=== PATIENT | female | born 1965 | race Caucasian/White ===

== ENCOUNTER 2017-06-17 11:13 | Day surgery (SDC) | payer OTHER ==
[~2017-06-17] VITALS: Ht 163.8 cm; Wt 78.0 kg
[~2017-06-17 11:13] MED LIST: ADDE5CAP PO; CYCL10TA PO; OMEP20CA3 PO
[2017-06-17] MEDS ORDERED: PROPOFOL 200 MG/20 ML VIAL As Ordered ONE (11:24)
[2017-06-17] MEDS ORDERED: LIDOCAINE 2% INJ 100 MG/5 ML SDV (FOR ANES.) As Ordered ONE (11:24)
[2017-06-17] MEDS: NS 1,000 ML IV ONE (11:30)
--- NOTE | 2017-06-17 12:55 | ROOR ---
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 Procedure: Pre-Anesthesia Assessment: - The heart rate, respiratory rate, oxygen saturations, blood pressure, adequacy of pulmonary ventilation, and response to care were monitored throughout the procedure. The Colonoscope was introduced through the anus and advanced to the cecum, identified by appendiceal orifice and ileocecal valve. The colonoscopy was performed without difficulty. The patient tolerated the procedure well. The quality of the bowel preparation was good. Findings: The perianal and digital rectal examinations were normal. Four semi-sessile polyps were found in the descending colon. The polyps were 3 to 5 mm in size. These polyps were removed with a cold snare. Resection and retrieval were complete. The exam was otherwise without abnormality on direct and retroflexion views. (Exam: Complete, Prep: Good or Excellent.) Impression: - (Exam: Complete, Prep: Good or Excellent.) - Four 3 to 5 mm polyps in the descending colon, removed with a cold snare. Resected and retrieved. - The colon examination was otherwise normal on direct and retroflexion views. Recommendation: - Repeat colonoscopy in 3 years for surveillance. Nash Frey MD Nash FREY MD 06/17/2017 12:54:55 PM This report has been signed electronically. Number of Addenda: 0 Note Initiated On: 06/17/2017 12:30 PM Estimated Blood Loss: Estimated blood loss: none.
[2017-06-17 13:14] VITALS: BP 144/66
== END 2017-06-17 13:15 | disposition home or self-care (01) ==
LOC: M OPP 11:13
PROVIDERS: ATTEND Internal Medicine Gastroenterology
DX: Z12.11 Encounter for screening for malignant neoplasm of colon (principal); Z86.010 Personal history of colon polyps; Z85.038 Personal history of other malignant neoplasm of large intestine; D12.4 Benign neoplasm of descending colon; R01.1 Cardiac murmur, unspecified; I20.9 Angina pectoris, unspecified; R12 Heartburn; K21.9 Gastro-esophageal reflux disease without esophagitis; Z86.718 Personal history of other venous thrombosis and embolism; R06.02 Shortness of breath; F41.9 Anxiety disorder, unspecified; F32.9 Major depressive disorder, single episode, unspecified; Z78.0 Asymptomatic menopausal state; R06.2 Wheezing; J44.9 Chronic obstructive pulmonary disease, unspecified; G47.8 Other sleep disorders; R06.83 Snoring; F17.210 Nicotine dependence, cigarettes, uncomplicated; F12.20 Cannabis dependence, uncomplicated; Z79.899 Other long term (current) drug therapy; Z80.0 Family history of malignant neoplasm of digestive organs

== ENCOUNTER → 2018-05-22 | Outpatient (REF) | payer OTHER, MEDICAID ==
[2018-05-22 17:18] LABS: BASO # 0.1 10^3/uL (0.0-0.2); EOS # 0.3 10^3/uL (0.0-0.50); EOS % 2.4 % (0.0-3.0); IMMATURE GRANULOCYTE % 0.4 % (0-3.0); LYMPH # 3.7 10^3/uL (1.5-4.5); LYMPH % 34.7 % (24.0-44.0); MEAN CORPUSCULAR HEMOGLOBIN 33.2 pg (27.0-33.0); MEAN CORPUSCULAR HGB CONC 32.6 g/dl (32.0-36.5); MEAN CORPUSCULAR VOLUME 101.9 fl (80.0-96.0); MONO # 0.5 10^3/uL (0.0-0.8); MONO % 5.1 % (0.0-5.0); NEUTROPHILS % 56.4 % (36.0-66.0); PLATELET COUNT, AUTOMATED 442 10^3/uL (150-450); RED BLOOD COUNT 4.22 10^6/uL (4.00-5.40); RED CELL DISTRIBUTION WIDTH 13.4 % (11.5-14.5); WHITE BLOOD COUNT 10.7 10^3/uL (4.0-10.0)
[2018-05-22 17:19] LABS: ALBUMIN 3.9 GM/DL (3.2-5.2); ALBUMIN/GLOBULIN RATIO 1.39 (1.00-1.93); ALKALINE PHOSPHATASE 76 U/L (45-117); ALT/SGPT 27 U/L (12-78); ANION GAP 8 MEQ/L (8-16); AST/SGOT 14 U/L (7-37); BILIRUBIN,TOTAL 0.3 MG/DL (0.2-1.0); BLOOD UREA NITROGEN 11 MG/DL (7-18); C REACTIVE PROTEIN QUANTITATIV < 0.30 MG/DL (0.00-0.30); CALCIUM LEVEL 8.7 MG/DL (8.5-10.1); CARBON DIOXIDE LEVEL 27 MEQ/L (21-32); CHLORIDE LEVEL 107 MEQ/L (98-107); CREATININE FOR GFR 0.77 MG/DL (0.55-1.30); GLOMERULAR FILTRATION RATE > 60.0 (>51); GLUCOSE, FASTING 84 MG/DL (70-100); POTASSIUM SERUM 4.2 MEQ/L (3.5-5.1); RHEUMATOID FACTOR QUANT < 10.0 IU/ML (<15.0); SODIUM LEVEL 142 MEQ/L (136-145); TOTAL 25(OH) VITAMIN D 26.9 NG/ML (30.0-100.0); TOTAL PROTEIN 6.7 GM/DL (6.4-8.2)
[2018-05-22 18:23] LABS: ERYTHROCYTE SEDIMENTATION RATE 6 mm/hr (0-30)
[2018-05-25 17:40] LABS: CYCLIC CITRULLINATED PEPTIDE 6 units (0-19)
[2018-05-25 17:40] LABS: ANTINUCLEAR ANTIBODIES DIRECT Negative (Negative); Lyme Disease IgG/IgM Antibodie <0.91 ISR (0.00-0.90); Lyme Disease IgM Ab Quantitati <0.80 index (0.00-0.79)
== END ==
LOC: M SFHCCAPE 10:18
DX: M25.50 Pain in unspecified joint (principal); R20.2 Paresthesia of skin; F90.0 Attention-deficit hyperactivity disorder, predominantly inattentive type

== ENCOUNTER → 2018-05-30 | Outpatient (CLI) | payer OTHER | LOC: M RAD 10:13 | DX: Z12.2 Encounter for screening for malignant neoplasm of respiratory organs (principal); F17.210 Nicotine dependence, cigarettes, uncomplicated; R91.8 Other nonspecific abnormal finding of lung field | CPT/HCPCS: G0297 ==

== ENCOUNTER → 2018-06-08 | Outpatient (CLI) | payer OTHER | LOC: M RAD 12:35 | DX: D17.0 Benign lipomatous neoplasm of skin and subcutaneous tissue of head, face and neck (principal) | CPT/HCPCS: 76536 ==

== ENCOUNTER → 2018-06-13 | Outpatient (REF) | payer OTHER, MEDICAID ==
[2018-06-13 17:26] LABS: FREE T4 0.69 NG/DL (0.76-1.46)
[2018-06-13 17:43] LABS: BASO # 0.1 10^3/uL (0.0-0.2); BASO % 0.9 % (0.0-1.0); EOS # 0.3 10^3/uL (0.0-0.50); EOS % 3.9 % (0.0-3.0); HEMATOCRIT 42.2 % (36.0-47.0); HEMOGLOBIN 13.9 g/dl (12.0-15.5); IMMATURE GRANULOCYTE % 0.3 % (0-3.0); LYMPH # 3.4 10^3/uL (1.5-4.5); LYMPH % 38.6 % (24.0-44.0); MEAN CORPUSCULAR HEMOGLOBIN 33.3 pg (27.0-33.0); MEAN CORPUSCULAR HGB CONC 32.9 g/dl (32.0-36.5); MEAN CORPUSCULAR VOLUME 101.2 fl (80.0-96.0); MONO # 0.4 10^3/uL (0.0-0.8); MONO % 4.2 % (0.0-5.0); NEUTROPHILS # 4.6 10^3/uL (1.8-7.7); NEUTROPHILS % 52.1 % (36.0-66.0); PLATELET COUNT, AUTOMATED 351 10^3/uL (150-450); RED BLOOD COUNT 4.17 10^6/uL (4.00-5.40); RED CELL DISTRIBUTION WIDTH 13.5 % (11.5-14.5); WHITE BLOOD COUNT 8.8 10^3/uL (4.0-10.0)
== END ==
LOC: M SFHCCAPE 11:33
DX: R79.89 Other specified abnormal findings of blood chemistry (principal)

== ENCOUNTER → 2018-07-06 | Outpatient (CLI) | payer OTHER, MEDICAID | LOC: M RAD 11:38 | DX: M50.30 Other cervical disc degeneration, unspecified cervical region (principal) | CPT/HCPCS: 72050 ==

== ENCOUNTER → 2018-08-09 | Outpatient (REF) | payer MEDICAID, OTHER ==
[2018-08-10 16:54] LABS: FREE T4 0.96 NG/DL (0.76-1.46); THYROID STIMULATING HORMONE 12.3 uIU/ML (0.358-3.740)
== END ==
LOC: M SFHCCAPE 15:48
PROVIDERS: ATTEND Physician Assistant
DX: E03.9 Hypothyroidism, unspecified (principal)

== ENCOUNTER → 2018-08-23 | Outpatient (CLI) | payer OTHER ==
--- NOTE | 2018-08-24 07:43 | REP ---
Clinical: Abnormal lung field findings. Comparison: 05/30/2018. Technique: Axial noncontrast images from the thoracic inlet to the upper abdomen with coronal and sagittal re-formations. Findings: A vague area of non solid opacity in the left apex remains unchanged. Remainder of lung weinstein are well-aerated and clear. Incidental 1.2 cm bleb is identified in the left lower lobe which remains unchanged. No acute consolidation, significant nodule, or mass lesion. No effusion or pneumothorax. Tracheobronchial tree is patent. No significant adenopathy. Mediastinum is grossly unremarkable. No cardiomegaly or pericardial effusion. Thoracic aorta without aneurysm. Small hiatal hernia identified at the gastroesophageal junction. Upper abdomen demonstrates normal bilateral adrenal glands. Impression: 1. The vague non solid opacity in the left apex remains unchanged. 2. Small hiatal hernia. 3. No acute mediastinal or pleuroparenchymal process appreciated. Electronically Signed by Jose E Monique MD 08/24/2018 07:35 A
== END ==
LOC: M RAD 10:05
PROVIDERS: ATTEND Internal Medicine Pulmonary Disease
DX: R91.8 Other nonspecific abnormal finding of lung field (principal); K44.9 Diaphragmatic hernia without obstruction or gangrene

== ENCOUNTER → 2018-09-08 | Outpatient (CLI) | payer OTHER ==
--- NOTE | 2018-09-08 12:25 | REP ---
MR CERVICAL SPINE WITHOUT CONTRAST: HISTORY: Cervicalgia. A disc bulge and small central disc protrusion are present at the C3-4 level. There is minimal effacement of the thecal sac without spinal cord compression. Uncinate process and facet hypertrophy are present on the right. These findings produce moderate narrowing of the right C3 neural foramen. The left C3 neural foramen is patent. A disc bulge with associated osteophyte formation is present at the C4-5 level. There is moderate effacement of the thecal sac without spinal cord compression. Bilateral uncinate process hypertrophy is present. This produces moderate and mild narrowing of the right and left C4 neural foramina respectively. A disc bulge with associated osteophyte formation is present at the C5-6 level. There is moderate effacement of the thecal sac without spinal cord compression. Bilateral uncinate process hypertrophy is present. This produces moderate narrowing of the C5 neural foramina. A disc bulge with associated osteophyte formation is present at the C6-7 level. There is mild effacement of the thecal sac without spinal cord compression. Bilateral uncinate process hypertrophy is present. This produces moderate narrowing of the C6 neural foramina. A disc bulge is present at the C7-T1 level. There is minimal effacement of the thecal sac without spinal cord compression. The C7 neural foramina are patent. A small central disc protrusion is present at the T2-3 level. There is minimal effacement of the thecal sac without spinal cord compression. The T2 neural foramina are patent on sagittal images. There is no other disc bulge or herniation. The remaining neural foramina are patent. The spinal cord is normal in signal intensity. The C4-5 through C6-7 intervertebral discs are decreased in height consistent with disc degeneration. Normal signal intensity is present in the cervical vertebral bodies. IMPRESSION: There is cervical spondylosis at the C3-4 through C7-T1 levels without spinal cord compression. Electronically Signed by Darius Singh MD 09/08/2018 12:28 P
== END ==
LOC: M RAD 09:41
PROVIDERS: ATTEND Physician Assistant
DX: M79.601 Pain in right arm (principal); M79.602 Pain in left arm; M50.21 Other cervical disc displacement, high cervical region; M50.221 Other cervical disc displacement at C4-C5 level; M50.222 Other cervical disc displacement at C5-C6 level; M50.223 Other cervical disc displacement at C6-C7 level; M50.23 Other cervical disc displacement, cervicothoracic region; M47.892 Other spondylosis, cervical region; M51.24 Other intervertebral disc displacement, thoracic region

== ENCOUNTER → 2018-10-12 | Outpatient (REF) | payer MEDICAID, OTHER ==
[2018-10-12 17:29] LABS: FREE T4 1.23 NG/DL (0.76-1.46); THYROID STIMULATING HORMONE 1.74 uIU/ML (0.358-3.740)
== END ==
LOC: M SFHCCAPE 11:22
PROVIDERS: ATTEND Physician Assistant
DX: E03.9 Hypothyroidism, unspecified (principal)

== ENCOUNTER → 2019-05-08 | Outpatient (REF) | payer MEDICAID, OTHER ==
[~2019-05-08] MED LIST changes: +OMEP1CAP73 PO; -OMEP20CA3 PO
[2019-05-11 06:07] LABS: RUBELLA IgG QUALITATIVE IMMUNE (IMMUNE)
[2019-05-12 08:06] LABS: MUMPS VIRUS IgG ANTIBODY <9.0 AU/mL (Immune >10.9)
== END ==
LOC: M SFHCCAPE 07:27
PROVIDERS: ATTEND Physician Assistant
DX: Z01.84 Encounter for antibody response examination (principal)

== ENCOUNTER → 2019-05-17 | Outpatient (REF) | payer MEDICAID, OTHER ==
[~2019-05-17] MED LIST changes: -OMEP1CAP73 PO; +OMEP20CA4 PO
[2019-05-17 18:13] LABS: CHLAMYDIA DNA AMPLIFICATION NEGATIVE (NEGATIVE); GC DNA AMPLIFICATION NEGATIVE (NEGATIVE)
== END ==
LOC: M SFHCCAPE 10:09
PROVIDERS: ATTEND Physician Assistant
DX: N76.6 Ulceration of vulva (principal); N89.8 Other specified noninflammatory disorders of vagina

== ENCOUNTER → 2021-01-14 | Outpatient (CLI) | payer OTHER ==
[~2021-01-14] MED LIST changes: +CYCL-707 PO; -CYCL10TA PO; +OMEP1CAP73 PO; -OMEP20CA4 PO
--- NOTE | 2021-01-14 15:52 | REP ---
INDICATION: ABN CT LUNG SCREENING COMPARISON: Multiple the latest 08/23/2018 TECHNIQUE: Standard helical technique without intravenous contrast administration FINDINGS: The mediastinum and pulmonary chris are unchanged. No mass or adenopathy has developed. There are no pleural or pericardial effusions. The imaged upper abdomen shows a left-sided nephrolith which was not imaged on the prior exam. The imaged upper abdomen is otherwise unchanged. There is no significant change in appearance of the imaged osseous structures. Evaluation of the lung weinstein shows and left apical ground-glass opacity which today measures approximately 2.5 cm and is potentially developing a more solid central component. No new abnormal nodules, masses, or opacities have developed. IMPRESSION: There is a ground-glass nodule in the left lung apical region as described above and is potentially subtly developing more solid central component. Consider follow-up with PET-CT at this time. <Electronically signed by Florentino Ruiz > 01/14/21 [id number]
== END ==
LOC: M RAD 11:14
PROVIDERS: ATTEND Physician Assistant
DX: R91.8 Other nonspecific abnormal finding of lung field (principal)

== ENCOUNTER 2021-02-08 12:42 | Emergency (ER) | payer OTHER ==
[~2021-02-08] VITALS: Ht 165.1 cm; Wt 68.2 kg
[2021-02-08] MEDS ORDERED: LEVO125T4 (12:53)
[2021-02-08] MEDS ORDERED: MELO15TA28 (12:53)
--- NOTE | 2021-02-08 13:22 | REP ---
INDICATION: fall COMPARISON: None. TECHNIQUE: AP, lateral, bilateral oblique views. FINDINGS: Prior by malleolar fixation. Posttraumatic degenerative changes noted. No acute fracture or dislocation identified. Ankle mortise intact. Lateral swelling. IMPRESSION: Lateral swelling. No acute fracture or dislocation appreciated. <Electronically signed by Jose E Monique > 02/08/21 [id number]
--- NOTE | 2021-02-08 13:24 | REP ---
INDICATION: fall COMPARISON: None. TECHNIQUE: AP, lateral, bilateral oblique views right foot. FINDINGS: All fractures of the medial and lateral malleolus. No obvious acute fracture or dislocation identified. IMPRESSION: No obvious acute fracture or dislocation appreciated.. <Electronically signed by Jose E Monique > 02/08/21 [id number]
--- NOTE | 2021-02-08 13:25 | REP ---
INDICATION: fall COMPARISON: None. TECHNIQUE: AP and lateral right tibia/fibula. FINDINGS: Prior fixation for medial and lateral malleolar fractures. No acute fracture or dislocation is appreciated. No subcutaneous emphysema or foreign body. IMPRESSION: . No acute fracture or dislocation. <Electronically signed by Jose E Monique > 02/08/21 [id number]
[2021-02-08] MEDS ORDERED: KETOROLAC 60MG 2ML VIAL IM ONE (14:05)
[2021-02-08 15:11] VITALS: BP 125/72
== END 2021-02-08 15:10 | disposition home or self-care (01) ==
LOC: M ED 12:42
DX: S90.01XA Contusion of right ankle, initial encounter (principal); S93.421A Sprain of deltoid ligament of right ankle, initial encounter; S93.411A Sprain of calcaneofibular ligament of right ankle, initial encounter; W22.09XA Striking against other stationary object, initial encounter; Y92.832 Beach as the place of occurrence of the external cause; Y93.19 Activity, other involving water and watercraft; Y99.8 Other external cause status; F41.9 Anxiety disorder, unspecified; F33.9 Major depressive disorder, recurrent, unspecified; F90.9 Attention-deficit hyperactivity disorder, unspecified type; E03.9 Hypothyroidism, unspecified; J44.9 Chronic obstructive pulmonary disease, unspecified; G89.29 Other chronic pain; M54.9 Dorsalgia, unspecified; F17.200 Nicotine dependence, unspecified, uncomplicated; Z79.899 Other long term (current) drug therapy; Z79.890 Hormone replacement therapy
CPT/HCPCS: 73590; 73610; 73630; 96372; 99284; J1885

== ENCOUNTER → 2021-04-14 | Outpatient (CLI) | payer OTHER ==
[~2021-04-14] MED LIST changes: +LEVO125T4; +MELO15TA28
--- NOTE | 2021-04-14 09:59 | REP ---
INDICATION: POSTPROCEDURAL. COMPARISON: 02/09/2020 TECHNIQUE: AP, lateral, bilateral oblique views of the right ankle. FINDINGS: Evidence for prior orthopedic fixation along the distal fibula and medial malleolus again noted and stable. No new acute superimposed injury identified. Chronic appearing spurring at the lateral malleolar joint. Ankle mortise appears intact. IMPRESSION: Stable prior fixation. <Electronically signed by Jose E Monique > 04/14/21 0958
== END ==
LOC: M SOG 09:24
PROVIDERS: ATTEND Orthopaedic Surgery Adult Reconstructive Orthopaedic Surgery
DX: Z98.890 Other specified postprocedural states (principal)

== ENCOUNTER → 2021-05-04 | Outpatient (CLI) | payer OTHER ==
--- NOTE | 2021-05-04 11:33 | REP ---
INDICATION: ABNORMAL FINDING OF LUNG FIELD COMPARISON: Multiple the latest 01/14/2021 also without contrast TECHNIQUE: Standard helical technique without contrast FINDINGS: The mediastinum and pulmonary chris are stable. There is no mass or adenopathy. There are no pleural or pericardial effusions. The imaged upper abdomen and imaged osseous structures are unchanged. Evaluation of the lung weinstein shows an unchanged left apical ground-glass opacity. It central component is unchanged. There is mild biapical pleuroparenchymal scarring status quo. No new abnormal nodules, masses, or opacities have developed. IMPRESSION: Stable CT examination of the chest. Follow-up as per the revised Fleischner society criteria. <Electronically signed by Florentino Ruiz > 05/04/21 5025
== END ==
LOC: M PLAIMG 11:02
PROVIDERS: ATTEND Internal Medicine Pulmonary Disease
DX: R91.8 Other nonspecific abnormal finding of lung field (principal)

== ENCOUNTER → 2021-05-30 | Outpatient (CLI) | payer OTHER | LOC: M LABSMTC 09:56 | PROVIDERS: ATTEND Anesthesiology | DX: Z11.52 Encounter for screening for COVID-19 (principal); Z20.822 Contact with and (suspected) exposure to COVID-19 ==

== ENCOUNTER → 2021-06-02 | Outpatient (CLI) | payer OTHER ==
[2021-06-02 15:20] LABS: PLATELET COUNT, AUTOMATED 431 10^3/uL (150-450)
[2021-06-02 15:32] LABS: INR 0.87; PARTIAL THROMBOPLASTIN TIME 31.2 SECONDS (25.9-37.0); PROTHROMBIN TIME 12.2 SECONDS (12.7-14.5)
--- NOTE | 2021-06-03 09:02 | RO ---
OPERATIVE NOTE DATE OF OPERATION: 06/03/2021 PREOPERATIVE DIAGNOSIS: Left upper lobe nodule. POSTOPERATIVE DIAGNOSIS: Left upper lobe nodule with mild chronic bronchitis. PROCEDURE: Fiberoptic bronchoscopy with [place] robotic platform as well as radial ultrasound fluoroscopy and transbronchial biopsies. SURGEON: GILBERT ENRIQUEZ M.D. PRINT PRODUCTION ASSOCIATE: ONEIDA FREEMAN MD ANESTHESIA: General. OPERATIVE FINDINGS: 1. Diffuse changes of mild bronchitis with black stained secretions. 2. Left upper lobe nodule. DESCRIPTION OF PROCEDURE: After the patient was identified and the above anesthesia given, the fiberoptic bronchoscope was passed via the existing endotracheal tube. It was found to be close to the terrance, was repositioned and then re-anchored. In a sequential fashion, left and right lung were entered. Minimal diffuse secretions were noted with some mild black staining consistent with her inhalational habits. Left upper and lower lobes easily identified, widely patent. Right upper, middle and lower lobes easily identified, generally widely patent and no focal endobronchial mucosa abnormalities were identified. The regular bronchoscope was withdrawn and then the [place] portion of the procedure was undertaken. The scope was able to be driven into the left upper lobe. Good position to the target was able to be obtained. Radial ultrasound probe was then passed. An area of interest was found. This was then marked on the fluoroscopic screen. Multiple transbronchial biopsies were then undertaken. Good cellular material was obtained, mainly inflammatory. When adequate tissue was able to be obtained, that portion of the procedure was terminated. Topical thrombin was then applied. The [place] portion of the procedure was then terminated. Immediate fluoroscopic examination showed no evidence of pneumothorax. Care was then turned over to anesthesia for recovery. Chest x-ray is ordered for one hour post-procedure. No immediate complications to procedure were identified.
== END ==
LOC: M WUC 13:17
PROVIDERS: ATTEND Internal Medicine Pulmonary Disease
DX: R91.8 Other nonspecific abnormal finding of lung field (principal)

== ENCOUNTER 2021-06-03 06:26 | Day surgery (SDC) | payer OTHER ==
[~2021-06-03] VITALS: Ht 162.6 cm; Wt 69.9 kg
[~2021-06-03 06:26] MED LIST changes: +LR 1,000 ML IV ONE
--- OUTSIDE RECORDS SUMMARY | 2021-06-03 06:30 | CCD | Continuity of Care Document ---
Author Ruthie Iqbal MD Organization Unknown Address [address] [place] [address] Phone [phone] Care Team Providers Care Licensed Practical Nurse Name Role Phone AUTM Unavailable Problems Description No Active Problems Social History Type Date Description Comments Sex Unknown ETOH Use Drinks 6 Alcoholic Beverages Per Week Tobacco Use Reviewed: 06/21/18 Patient is a current smoker, smokes every day 1ppd since age 11 Recreational Drug Use Denies Drug Use Smoking Status Reviewed: 05/13/21 Patient is a current smoker, smokes every day 1ppd since age 11 Allergies and adverse reactions Description No Known Drug Allergies Medications Active Medications SIG Qnty Indications Ordering Provide r Date Symbicort 160-4.5mcg/Act Aerosol 2 puff twice a day 10.200gm Silverio Hendrix MD 05/13/2021 Albuterol Sulfate HFA 108(90Base) mcg/Act Aerosol inhale two puffs by mouth four times a day as needed 25.5units Silverio Hendrix MD 05/13/2021 Levothyroxine Sodium 50mcg Tablets 1 by mouth every day Unknown Amphetamine-Dextroamphetamine 10mg Tablets Take 2 Tablets By Mouth Once Daily . DO Not Exceed 2 Per 24 Hour Felicita Khan, P.A. Immunizations Description No Information Available Vital Signs Date Vital Result Comment 05/13/2021 11:06am BP Systolic 136 mmHg BP Diastolic 84 mmHg Heart Rate 64 /min O2 % BldC Oximetry 96 % Height 64 inches 5'4" Weight 152.00 lb BMI (Body Mass Index) 26.1 kg/m2 [place] Body Weight 120 lb Weight 68.947 kg BSA (Body Surface Area) 1.74 m2 04/21/2021 10:06am BP Systolic 108 mmHg BP Diastolic 68 mmHg Heart Rate 66 /min O2 % BldC Oximetry 100 % Room Air Height 64 inches 5'4" Weight 150.00 lb BMI (Body Mass Index) 25.7 kg/m2 [place] Body Weight 120 lb Weight 68.040 kg BSA (Body Surface Area) 1.73 m2 Results Test Acquired Date Facility Test Result H/L Range Note FVL/[place] 05/13/2021 [facility] SEE IMAGE FVC-Pred 3.36 L FVC-Pre 3.35 L FVC-%Pred-Pre 99 L FVC-LLN 2.66 L Fev1-Pred 2.61 L Fev1-Pre 2.19 L Fev1-%Pred-Pre 84 L Fev1-LLN 2.02 L Fev6-Pred 3.25 L Fev6-Pre 3.27 L Fev6-%Pred-Pre 100 L Fev6-LLN 2.57 L Pst8bhq-Gkrg 78 % Art1egh-Ynq 65 % Stk3sqs-%Pred-Pre 83 % Xcg7hxj-HHT 69 % Ztv2wom-Oggu 97 % Yty4oyy-Spj 98 % Leo9lcv-%Pred-Pre 100 % FEFMax-Pred 6.40 L/E/sec FEFMax-Pre 3.37 L/E/sec FEFMax-%Pred-Pre 52 L/E/sec FEFMax-LLN 4.68 L/E/sec Pin8425-Iqtw 2.43 L/E/sec Sqr9209-Qwa 1.46 L/E/sec Dkz6881-%Pred-Pre 60 L/E/sec Ive9079-JIL 1.19 L/E/sec ExpTime-Pre 8.58 sec Yms7avq0-Bmhv 81 % Nan0rxq0-Wnv 67 % Uzc7jol4-%Pred-Pre 82 % Uvz5was1-VMH 72 % Procedures Date Code Description Status 05/13/2021 34763 Office/Outpatient Established Mo d MDM 30-39 Min Completed 05/13/2021 40887 Inhaler Teaching Completed 05/13/2021 30232 Spirometry Completed 05/12/2021 77480 Diffusing Capacity Completed 05/12/2021 46498 Plethysmography Determination Rush ng Volumes & Per Airway Resist Completed 05/12/2021 97471 Bronchospasm Evaluation Complete d 04/21/2021 81993 Office/Outpatient Established Mo d MDM 30-39 Min Completed 04/21/2021 01541 Spirometry Completed 04/14/2021 61815 Office/Outpatient New Low MDM 30 -44 Minutes Completed Medical Devices Description No Information Available Encounters Type Date Location Provider Dx Diagnosis Office Visit 05/13/2021 11:00a [facility] Sandeep Hendrix MD R91.8 Other nonspecific abnormal finding of rush ng field J44.9 Chronic obstructive pulmonar y disease, unspecified F17.218 Nicotine dependence, cigaret david, w oth disorders Office Visit 04/21/2021 10:00a [facility] Sandeep Hendrix MD R91.8 Other nonspecific abnormal finding of rush ng field F17.218 Nicotine dependence, cigaret david, w oth disorders Office Visit 04/14/2021 9:00a [facility] Nash Cotton MD Z98.890 Other specified postprocedural states M25.571 Pain in right ankle and join ts of right foot Assessments Date Code Description Provider 05/13/2021 R91.8 Other nonspecific abnormal findi ng of lung field Silverio Hendrix MD 05/13/2021 J44.9 Chronic obstructive pulmonary di sease, unspecified Silverio Hendrix MD 05/13/2021 F17.218 Nicotine dependence, cigarettes, with other nicotine-induced disorders Silverio Hendrix MD 05/12/2021 R91.8 Other nonspecific abnormal findi ng of lung field Pulmonary Lab 04/21/2021 R91.8 Other nonspecific abnormal findi ng of lung field Silveroi Hendrix MD 04/21/2021 F17.218 Nicotine dependence, cigarettes, with other nicotine-induced disorders Silverio Hendrix MD 04/14/2021 Z98.890 History of ankle surgery Nash mojica MD 04/14/2021 M25.571 Pain in right ankle and joints o f right foot Nash Cotton MD Plan of Treatment Future Appointment(s):* 07/15/2021 11:30 am - Nash Cotton MD at [facility] 05/13/2021 - Silverio Hendrix MD* R91.8 Other nonspecific abnormal finding of lung field * J44.9 Chronic obstructive pulmonary disease, unspecified * F17.218 Nicotine dependence, cigarettes, with other nicotine-induced disorders * * New Labs:* Coag Panel For Procedures, Ordered: 05/13/21 * New Orders:* Bronchoscopy in [place], Ordered: 05/13/21 * Comments:* ~ At this point, we plan bronchoscopy under [place] assistance. Preop labs will be drawn. Risks and benefits were discussed, and consent was obtained today.~ We will start her on an inhaled steroid long-acting bronchodilator combination. I will see her in return after her path is available. Given her bronchodilator response, I suspect she will do well, and a rescue inhaler is provided as well. She was instructed on the use of the devices.~ I strongly urged her to work harder regarding smoking cessation. * Follow up:* Follow up in office after procedure. Functional Status Functional Condition Comment Date Status Independent with all ADL's Activ e Independent with all IADL's Acti ve Mental Status Mental Condition Comment Date Status Cognitive ability not impaired A ctive Referrals Refer to Reason for Referral Status Appt Date Radiology/Procedure CT Chest approval Created [address] Scheduled [facility] [address] [place] [id number] [phone] Silverio Hendrix M.D. AABN FINDING LUNG Scheduled [address] [facility] [address] [place] [id number] [phone]
--- OUTSIDE RECORDS SUMMARY | 2021-06-03 06:30 | CCD | Continuity of Care Document ---
Author Ruthie Iqbal MD Organization Unknown Address [address] [place] [address] Phone [phone] Care Team Providers Care Ecologist Name Role Phone AUTM Unavailable Problems Description [...] lb BMI (Body Mass Index) 26.1 kg/m2 [place] Body Weight 120 lb Weight 68.947 kg BSA (Body Surface Area) 1.74 m2 04/21/2021 10:06am BP Systolic 108 mmHg BP Diastolic 68 mmHg Heart Rate 66 /min O2 % BldC Oximetry 100 % Room Air Height 64 inches 5'4" Weight 150.00 lb BMI (Body Mass Index) 25.7 kg/m2 [place] Body Weight 120 lb Weight 68.040 kg BSA (Body Surface Area) 1.73 m2 Results Test Acquired Date Facility Test Result H/L Range Note FVL/[place] 05/13/2021 [facility] SEE IMAGE FVC-Pred 3.36 L FVC-Pre 3.35 L FVC-%Pred-Pre 99 L FVC-LLN 2.66 L Fev1-Pred 2.61 L Fev1-Pre 2.19 L Fev1-%Pred-Pre 84 L Fev1-LLN 2.02 L Fev6-Pred 3.25 L Fev6-Pre 3.27 L Fev6-%Pred-Pre 100 L Fev6-LLN 2.57 L Uee4xza-Hepc 78 % Vir6kgc-Drw 65 % Yzg7oxd-%Pred-Pre 83 % Yns0cnm-ZII 69 % Uaz5hoe-Spha 97 % Rap3iwm-Iop 98 % Yin2zsl-%Pred-Pre 100 % FEFMax-Pred 6.40 L/E/sec FEFMax-Pre 3.37 L/E/sec FEFMax-%Pred-Pre 52 L/E/sec FEFMax-LLN 4.68 L/E/sec Fnj1897-Zncc 2.43 L/E/sec Imn1775-Uzg 1.46 L/E/sec Iss4318-%Pred-Pre 60 L/E/sec Nvw9955-NJE 1.19 L/E/sec ExpTime-Pre 8.58 sec Xyp3zkm8-Eeqf 81 % Skx3ifj8-Rdc 67 % Cvb7lth0-%Pred-Pre 82 % Hpx4tnu3-TKJ 72 % Procedures Date Code Description Status 05/13/2021 47424 Office/Outpatient Established Mo d MDM 30-39 Min Completed 05/13/2021 70476 Inhaler Teaching Completed 05/13/2021 20978 Spirometry Completed 05/12/2021 35805 Diffusing Capacity Completed 05/12/2021 68651 Plethysmography Determination Rush ng Volumes & Per Airway Resist Completed 05/12/2021 49320 Bronchospasm Evaluation Complete d 04/21/2021 98455 Office/Outpatient Established Mo d MDM 30-39 Min Completed 04/21/2021 61722 Spirometry Completed 04/14/2021 40267 Office/Outpatient New Low MDM 30 -44 Minutes Completed Medical Devices Description No Information Available Encounters Type Date Location Provider Dx Diagnosis Office Visit 05/13/2021 11:00a [facility] Sandeep Hendrix MD R91.8 Other nonspecific abnormal finding of rush ng field J44.9 Chronic obstructive pulmonar y disease, unspecified F17.218 Nicotine dependence, cigaret david, w oth disorders Office Visit 04/21/2021 10:00a [facility] Sandeep Hendrix MD R91.8 Other nonspecific abnormal finding of rush ng field F17.218 Nicotine dependence, cigaret david, w oth disorders Office Visit 04/14/2021 9:00a [facility] Nash Cotton MD Z98.890 Other specified [...] ng of lung field Silverio Hendrix MD 04/21/2021 F17.218 Nicotine dependence, cigarettes, with other nicotine-induced disorders Silverio Hendrix MD 04/14/2021 Z98.890 History of ankle surgery Nash mojica MD 04/14/2021 M25.571 Pain in right ankle and joints o f right foot Nash Cotton MD Plan of Treatment Future Appointment(s):* 07/15/2021 11:30 am - Nash Cotton MD at [facility] 05/13/2021 - Silverio Hendrix MD* R91.8 Other nonspecific abnormal finding of lung field * J44.9 Chronic obstructive pulmonary disease, unspecified * F17.218 Nicotine dependence, cigarettes, with other nicotine-induced disorders * * New Labs:* Coag Panel For Procedures, Ordered: 05/13/21 * New Orders:* Bronchoscopy in [place], Ordered: 05/13/21 * Comments:* ~ At this point, we plan bronchoscopy under [place] assistance. Preop labs will be drawn. Risks [...] Status Appt Date Radiology/Procedure CT Chest approval Closed 1 Silverio Hendrix M.D. JEWELBN FINDING LUNG Scheduled 2020 [facility] [address] [place], [place] [address] [phone]
--- OUTSIDE RECORDS SUMMARY | 2021-06-03 06:30 | CCD ---
Author Author [facility] Organization [facility] Address Unknown Phone Unavailable Care Team Providers Care Ripsaw Grader Name Role Phone Felicita Manning Unavailable PROBLEMS Type Condition ICD9-CM Code BUJ98-EO Code Onset Dates Condition S tatus W/U Status Risk SNOMED Code Notes Problem Reflux esophagitis K21.0 Active confirmed 2 11857521 Problem Herpes simplex B00.9 Active confirmed 17314 005 Problem Lipoma of back D17.1 Active confirmed 62179 3002 Problem Acquired hypothyroidism E03.9 Active confirmed 494122761 Problem Psoriasis L40.9 Active confirmed 3200013 Problem Vitamin D insufficiency E55.9 Active confirmed 35110349 Problem Anxiety F41.9 Active confirmed 02616075 Problem Mixed hyperlipidemia E78.2 Active confirmed 609905783 Problem Attention deficit disorder (ADD) in adult F98.8 Active confirmed 954753704 Problem Moderate major depression F32.1 Active confirmed 132439 Problem Cigarette nicotine dependence without complication F17.210 Active confirmed 76673370 ALLERGIES No Known Allergies ENCOUNTERS from 1965 to 2021-05-19 Encounter Location Date Provider Diagnosis [address] [place] [address] May, Felicita Manning IMMUNIZATIONS Vaccine Route Administration Date Status MMR 0.5mL SC Subcutaneous May 22, 2019 Administered SOCIAL HISTORY Tobacco Use: Social History Observation Description Date Details (start date - stop date) Current Smoker Sex Assigned At : Social History Observation Description Sex Assigned At Unknown Audit Question Answer Notes Total Score: 5 Interpretation: Alcohol Education Language: Question Answer Notes Languages spoken: Lao Sexual Hx: Question Answer Notes Had sex in the last 12 months (vaginal, oral, or anal)? Yes Drug and Alcohol Question Answer Notes Total Score: 1 Interpretation: Low level Alcohol Screening: Question Answer Notes Did you have a drink containing alcohol in the past year? Ye s Points 2 Interpretation Negative How often did you have six or more drinks on one occas ion in the past year? Less than monthly (1 point) How many drinks did you have on a typica l day when you were drinking in the past year? 1 or 2 (0 points) How often did you have a drink containing alcohol in t he past year? Monthly or less (1 point) Tobacco Use: Question Answer Notes Are you a: current smoker Smoking Cessation Information Given 09/02/2017 Patient counseled on the dangers of tobacco use and urged to quit: 05/07/2019 How many cigarettes a day do you smoke? 6-10 Are you interested in quitting? Not ready to quit Counseled the patient on smoking effects, education provided 05/07/2019 REASON FOR REFERRAL No Information VITAL SIGNS No information MEDICATIONS Medication SIG (Take, Route, Frequency, Duration) Notes Start Da te End Date Status Cyclobenzaprine HCl 5 MG 1 tablet as needed Orally Th ree times a day for 30 days Aug, Active Famotidine 20 MG 1 tablet Orally bid for 30 day(s) Active Levothyroxine Sodium 125 MCG 1 tablet on an empty stom ach in the morning Orally Once a day for 30 days Aug, Active Amoxicillin-Pot Clavulanate 875-125 MG 1 tablet Orally every 12 hrs for 10 day(s) Dec, Active Vitamin D3 50 MCG (2000 UT) 1 tablet Orally Once a day for 30 da y(s) Dec, Active Betamethasone Dipropionate Aug 0.05 % 1 application to affected area Externally bid to psoriasis on weekends only for 30 days Active Dovonex 0.005 % 1 application to affected ar ea Externally Twice a day for 30 days Active Meloxicam 15 MG 1 tablet Orally Once a day for 30 day(s) Active Adderall 10 MG 2 tablets Orally Daily (MDD-2 tabs) for 30 days May, Active Ranitidine HCl 150 MG 1 tablet Orally bid for 30 day(s) May, Active hydrOXYzine HCl 25 MG 1 tablet as needed Orally every 8 hrs Sep, Active Valtrex 1 GM 1 tablet Orally bid FOR 5 DAYS for 30 days Jun, Active Fluconazole 150 MG 1 tablet Orally one dose for 1 days Dec, Active PROCEDURES No Information RESULTS No Results REASON FOR VISIT covid testing questions MEDICAL (GENERAL) HISTORY Type Description Date Medical History Colon polyps Medical History Abnormal Lung Imaging 8. Follow up CT [facility]est 08/2018-Ordered by Dr. Hendrix. Medical History Anxiety Medical History Reflux esophagitis Medical History Psoriasis Medical History Herpes simplex Medical History Lipoma of back Medical History Attention deficit disorder (ADD) in adul t Medical History Mixed hyperlipidemia Medical History Moderate major depression Medical History Cigarette nicotine dependence without co mplication Medical History Acquired hypothyroidism Medical History Vitamin D insufficiency Surgical History C section X 3 Surgical History ankle surgery/ right ankle after fract ure 2008 Surgical History MASS REMOVED BASE OF NECK/BENIGN Surgical History LEFT/BARTHOLIN ABSCESS, I AND D 2006 Surgical History benign mass removed from the colon-colon oscopy 2009 Surgical History left ankle/leg pinned and screwed after fr. 2010 Surgical History colposcopy,KIANNA 1 09/2010 Surgical History endoscopy = grade A reflux esophagitis (Dr Frey) 2009 Surgical History colonoscoy = one 5 mm polyp. ...was to have repeat in [address] Frey. 09/2009 Surgical History Appendix removed 09/2014 Surgical History Colonoscopy 05/02/2015 Surgical History Colonoscopy due for repeat in 06/17 Hospitalization History Surgery Goals Section No Information Health Concerns No Information MEDICAL EQUIPMENT No Information MENTAL STATUS No Information FUNCTIONAL STATUS No Information ASSESSMENTS No Information PLAN OF TREATMENT Medication Medication Name Sig Start Date Stop Date Amoxicillin-Pot Clavulanate 875-125 MG 1 tablet Orally every 12 hrs for 10 day(s) Dec, Levothyroxine Sodium 125 MCG 1 tablet on an empty stom ach in the morning Orally Once a day for 30 days Aug, Dovonex 0.005 % 1 application to affected ar ea Externally Twice a day for 30 days Fluconazole 150 MG 1 tablet Orally one dose for 1 days Dec, 2 021 Adderall 10 MG 2 tablets Orally Daily (MDD-2 tabs) for 30 days May, Betamethasone Dipropionate Aug 0.05 % 1 application to affected area Externally bid to psoriasis on weekends only for 30 days Next Appt Details Provider Name:Sierra Felton, 2021-06-02 02:15:00 PM, [address] [facility], , [place], [address], Insurance Providers Payer Name Payer Address Payer Phone Insured Name Patient Relati onship to Insured Coverage Start Date Coverage End Date [facility] [address] [facility] [id number] LIZZETH LEE self
--- OUTSIDE RECORDS SUMMARY | 2021-06-03 06:31 | CCD | Continuity of Care Document ---
Author Ruthie Iqbal MD Organization Unknown Address [address] [place] [address] Phone [phone] Care Team Providers Care Sampler And Test Preparer Name Role Phone AUTM Unavailable Problems Description [...] lb BMI (Body Mass Index) 26.1 kg/m2 [place] Body Weight 120 lb Weight 68.947 kg BSA (Body Surface Area) 1.74 m2 04/21/2021 10:06am BP Systolic 108 mmHg BP Diastolic 68 mmHg Heart Rate 66 /min O2 % BldC Oximetry 100 % Room Air Height 64 inches 5'4" Weight 150.00 lb BMI (Body Mass Index) 25.7 kg/m2 [place] Body Weight 120 lb Weight 68.040 kg BSA (Body Surface Area) 1.73 m2 Results Test Acquired Date Facility Test Result H/L Range Note FVL/[place] 05/13/2021 [employer] PDFReport SEE IMAGE FVC-Pred 3.36 L FVC-Pre 3.35 L FVC-%Pred-Pre 99 L FVC-LLN 2.66 L Fev1-Pred 2.61 L Fev1-Pre 2.19 L Fev1-%Pred-Pre 84 L Fev1-LLN 2.02 L Fev6-Pred 3.25 L Fev6-Pre 3.27 L Fev6-%Pred-Pre 100 L Fev6-LLN 2.57 L Llh7xai-Mnmm 78 % Ybq7bwy-Uui 65 % Auz0mal-%Pred-Pre 83 % Urv3fgy-CQO 69 % Nlg0foa-Mzli 97 % Ywp9ynm-Fsl 98 % Hjr0zht-%Pred-Pre 100 % FEFMax-Pred 6.40 L/E/sec FEFMax-Pre 3.37 L/E/sec FEFMax-%Pred-Pre 52 L/E/sec FEFMax-LLN 4.68 L/E/sec Eoy1811-Pxhk 2.43 L/E/sec Lqo2314-Jvx 1.46 L/E/sec Cfc2239-%Pred-Pre 60 L/E/sec Rvw4062-PLG 1.19 L/E/sec ExpTime-Pre 8.58 sec Ler7nzo3-Zyma 81 % Vhp8use4-Meq 67 % Mhq3wlw0-%Pred-Pre 82 % Tpr7ksr2-ZVZ 72 % Procedures Date Code Description Status 05/12/2021 41720 Diffusing Capacity Completed 05/12/2021 00190 Plethysmography Determination Rush ng Volumes & Per Airway Resist Completed 05/12/2021 96797 Bronchospasm Evaluation Complete d 04/21/2021 44249 Office/Outpatient Established Mo d MDM 30-39 Min Completed 04/21/2021 90695 Spirometry Completed 04/14/2021 55380 Office/Outpatient New Low MDM 30 -44 Minutes Completed Medical Devices Description No Information Available Encounters Type Date Location Provider Dx Diagnosis Office Visit 04/21/2021 10:00a [facility] Pulmonary/Thoracic Lawrenc ramez Hendrix MD R91.8 Other nonspecific abnormal finding of rush ng field F17.218 Nicotine dependence, cigaret david, w oth disorders Office Visit 04/14/2021 9:00a [facility] Nash Cotton MD Z98.890 Other specified [...] 11:30 am - Nash Cotton MD at [facility] 05/13/2021 - Silverio Hendrix MD* R91.8 Other nonspecific abnormal finding of lung field * J44.9 Chronic obstructive pulmonary disease, unspecified * F17.218 Nicotine dependence, cigarettes, with other nicotine-induced disorders * * New Labs:* Coag Panel For Procedures, Ordered: 05/13/21 * New Orders:* Bronchoscopy in [place], Ordered: 05/13/21 * Comments:* ~ At this point, we plan bronchoscopy under [place] assistance. Preop labs will be drawn. Risks [...] 0 Silverio Hendrix M.D. ABN CT Scheduled [facility] [address] [place] [address] [phone] Silverio Hendrix M.D. AABN FINDING LUNG Scheduled [address] [id number] [phone]
--- OUTSIDE RECORDS SUMMARY | 2021-06-03 06:31 | CCD | Continuity of Care Document ---
Author Ruthie Iqbal MD Organization Unknown Address [address] [place] [address] Phone [phone] Care Team Providers Care Sales Technician Home Theater Name Role Phone AUTM Unavailable Problems Description [...] lb BMI (Body Mass Index) 26.1 kg/m2 [place] Body Weight 120 lb Weight 68.947 kg BSA (Body Surface Area) 1.74 m2 04/21/2021 10:06am BP Systolic 108 mmHg BP Diastolic 68 mmHg Heart Rate 66 /min O2 % BldC Oximetry 100 % Room Air Height 64 inches 5'4" Weight 150.00 lb BMI (Body Mass Index) 25.7 kg/m2 [place] Body Weight 120 lb Weight 68.040 kg BSA (Body Surface Area) 1.73 m2 Results Test Acquired Date Facility Test Result H/L Range Note FVL/[place] 05/13/2021 [employer] PDFReport SEE IMAGE FVC-Pred 3.36 L FVC-Pre 3.35 L FVC-%Pred-Pre 99 L FVC-LLN 2.66 L Fev1-Pred 2.61 L Fev1-Pre 2.19 L Fev1-%Pred-Pre 84 L Fev1-LLN 2.02 L Fev6-Pred 3.25 L Fev6-Pre 3.27 L Fev6-%Pred-Pre 100 L Fev6-LLN 2.57 L Adt0kji-Pxhr 78 % Gad2ugl-Ujg 65 % Okk1bnn-%Pred-Pre 83 % Mjq9jrg-WQX 69 % Wwv9yqi-Nlkb 97 % Igr9qgu-Bfs 98 % Vbd5uls-%Pred-Pre 100 % FEFMax-Pred 6.40 L/E/sec FEFMax-Pre 3.37 L/E/sec FEFMax-%Pred-Pre 52 L/E/sec FEFMax-LLN 4.68 L/E/sec Xhd2231-Cdyh 2.43 L/E/sec Tgu9173-Szb 1.46 L/E/sec Mva6503-%Pred-Pre 60 L/E/sec Vux0436-SKV 1.19 L/E/sec ExpTime-Pre 8.58 sec Szg8rod8-Xmqq 81 % Jtm4igo6-Qvb 67 % Mcp4mft5-%Pred-Pre 82 % Olt5kfz3-XMQ 72 % Procedures Date Code Description Status 05/12/2021 90957 Diffusing Capacity Completed 05/12/2021 85435 Plethysmography Determination Rush ng Volumes & Per Airway Resist Completed 05/12/2021 24425 Bronchospasm Evaluation Complete d 04/21/2021 74784 Office/Outpatient Established Mo d MDM 30-39 Min Completed 04/21/2021 30140 Spirometry Completed 04/14/2021 24504 Office/Outpatient New Low MDM 30 -44 Minutes Completed Medical Devices Description No Information Available Encounters Type Date Location Provider Dx Diagnosis Office Visit 04/21/2021 10:00a [facility] Pulmonary/Thoracic Lawrenc ramez Hendrix MD R91.8 Other nonspecific abnormal finding of rush ng field F17.218 Nicotine dependence, cigaret david, w oth disorders Office Visit 04/14/2021 9:00a [facility] Nash Cotton MD Z98.890 Other [...] abnormal findi ng of lung field Silverio Hnedrix MD 04/21/2021 F17.218 Nicotine dependence, cigarettes, with other nicotine-induced disorders Silverio Hendrix MD 04/14/2021 Z98.890 History of ankle surgery Nash mojica MD 04/14/2021 M25.571 Pain in right ankle and joints o f right foot Nash Cotton MD Plan of Treatment Future Appointment(s):* 07/15/2021 11:30 am - Nash Cotton MD at [facility] 05/13/2021 - Silverio Hendrix MD* R91.8 Other nonspecific abnormal finding of lung field * J44.9 Chronic obstructive pulmonary disease, unspecified * F17.218 Nicotine dependence, cigarettes, with other nicotine-induced disorders * * New Labs:* Coag Panel For Procedures, Ordered: 05/13/21 * New Orders:* Bronchoscopy in [place], Ordered: 05/13/21 * Comments:* ~ At this point, we plan bronchoscopy under [place] assistance. Preop labs will be drawn. Risks [...] 0 Silverio Hendrix M.D. ABN CT Scheduled [facility] [address] [place] [address] [phone] Silverio Hendrix M.D. AABN FINDING LUNG Scheduled [address] [id number] [phone]
--- OUTSIDE RECORDS SUMMARY | 2021-06-03 06:31 | CCD | Continuity of Care Document ---
Author Ruthie Iqbal MD Organization Unknown Address [address] [place] [address] Phone [phone] Care Team Providers Care Mop Machine Operator Name Role Phone AUTM Unavailable Problems Description [...] lb BMI (Body Mass Index) 26.1 kg/m2 [place] Body Weight 120 lb Weight 68.947 kg BSA (Body Surface Area) 1.74 m2 04/21/2021 10:06am BP Systolic 108 mmHg BP Diastolic 68 mmHg Heart Rate 66 /min O2 % BldC Oximetry 100 % Room Air Height 64 inches 5'4" Weight 150.00 lb BMI (Body Mass Index) 25.7 kg/m2 [place] Body Weight 120 lb Weight 68.040 kg BSA (Body Surface Area) 1.73 m2 Results Test Acquired Date Facility Test Result H/L Range Note FVL/[place] 05/13/2021 Medgraphics PDFReport SEE IMAGE FVC-Pred 3.36 L FVC-Pre 3.35 L FVC-%Pred-Pre 99 L FVC-LLN 2.66 L Fev1-Pred 2.61 L Fev1-Pre 2.19 L Fev1-%Pred-Pre 84 L Fev1-LLN 2.02 L Fev6-Pred 3.25 L Fev6-Pre 3.27 L Fev6-%Pred-Pre 100 L Fev6-LLN 2.57 L Hla4wqc-Lknh 78 % Vmu9dmx-Pza 65 % Ktr5mzs-%Pred-Pre 83 % Osz9pxh-POU 69 % Bhp2nku-Csov 97 % Bct0ado-Jzp 98 % Kkg9kfb-%Pred-Pre 100 % FEFMax-Pred 6.40 L/E/sec FEFMax-Pre 3.37 L/E/sec FEFMax-%Pred-Pre 52 L/E/sec FEFMax-LLN 4.68 L/E/sec Llt1296-Gjgc 2.43 L/E/sec Cqh6454-Khf 1.46 L/E/sec Rvt2754-%Pred-Pre 60 L/E/sec Vjt1380-HBX 1.19 L/E/sec ExpTime-Pre 8.58 sec Mlo3moc8-Hogt 81 % Rso9eof0-Jik 67 % Fcp7yhg4-%Pred-Pre 82 % Pwx4aqj4-CIS 72 % Procedures Date Code Description Status 05/12/2021 23453 Diffusing Capacity Completed 05/12/2021 33856 Plethysmography Determination Rush ng Volumes & Per Airway Resist Completed 05/12/2021 77169 Bronchospasm Evaluation Complete d 04/21/2021 69957 Office/Outpatient Established Mo d MDM 30-39 Min Completed 04/21/2021 57437 Spirometry Completed 04/14/2021 75805 Office/Outpatient New Low MDM 30 -44 Minutes Completed Medical Devices Description No Information Available Encounters Type Date Location Provider Dx Diagnosis Office Visit 04/21/2021 10:00a [facility] Pulmonary/Thoracic Lawrenc ramez Hendrix MD R91.8 Other nonspecific abnormal finding of rush ng field F17.218 Nicotine dependence, cigaret david, w oth disorders Office Visit 04/14/2021 9:00a [facility] Orthopedics Nash Cotton MD Z98.890 Other specified [...] 11:30 am - Nash Cotton MD at [facility] 05/13/2021 - Silverio Hendrix MD* R91.8 Other nonspecific abnormal finding of lung field * J44.9 Chronic obstructive pulmonary disease, unspecified * F17.218 Nicotine dependence, cigarettes, with other nicotine-induced disorders * * New Labs:* Coag Panel For Procedures, Ordered: 05/13/21 * New Orders:* Bronchoscopy in [place], Ordered: 05/13/21 * Comments:* ~ At this point, we plan bronchoscopy under [place] assistance. Preop labs will be drawn. Risks [...] 0 Silverio Hendrix M.D. ABN CT Scheduled [facility] [address] [place] [address] [phone] Silverio Hendrix M.D. AABN FINDING LUNG Scheduled [address] [id number] [phone]
--- OUTSIDE RECORDS SUMMARY | 2021-06-03 06:31 | CCD | Continuity of Care Document ---
Author Ruthie Iqbal MD Organization Unknown Address [address] [place] [address] Phone [phone] Care Team Providers Care Transportation Planning Technician Name Role Phone AUTM Unavailable Problems Description [...] lb BMI (Body Mass Index) 26.1 kg/m2 [place] Body Weight 120 lb Weight 68.947 kg BSA (Body Surface Area) 1.74 m2 04/21/2021 10:06am BP Systolic 108 mmHg BP Diastolic 68 mmHg Heart Rate 66 /min O2 % BldC Oximetry 100 % Room Air Height 64 inches 5'4" Weight 150.00 lb BMI (Body Mass Index) 25.7 kg/m2 [place] Body Weight 120 lb Weight 68.040 kg BSA (Body Surface Area) 1.73 m2 Results Test Acquired Date Facility Test Result H/L Range Note FVL/[place] 05/13/2021 Medgraphics PDFReport SEE IMAGE FVC-Pred 3.36 L FVC-Pre 3.35 L FVC-%Pred-Pre 99 L FVC-LLN 2.66 L Fev1-Pred 2.61 L Fev1-Pre 2.19 L Fev1-%Pred-Pre 84 L Fev1-LLN 2.02 L Fev6-Pred 3.25 L Fev6-Pre 3.27 L Fev6-%Pred-Pre 100 L Fev6-LLN 2.57 L Qou5lcp-Qrqh 78 % Qyv6plw-Etw 65 % Dfe9gdd-%Pred-Pre 83 % Mer2bny-ZJS 69 % Svg4lzi-Teux 97 % Ypt3zvg-Jnt 98 % Dct4pgh-%Pred-Pre 100 % FEFMax-Pred 6.40 L/E/sec FEFMax-Pre 3.37 L/E/sec FEFMax-%Pred-Pre 52 L/E/sec FEFMax-LLN 4.68 L/E/sec Ipx8636-Tcqh 2.43 L/E/sec Vdg1555-Nov 1.46 L/E/sec Dpd5730-%Pred-Pre 60 L/E/sec Yar8201-PVA 1.19 L/E/sec ExpTime-Pre 8.58 sec Ohv3oal8-Zlgh 81 % Gny2cia8-Zfi 67 % Xud4mcz0-%Pred-Pre 82 % Qqj2rlj2-FUX 72 % Procedures Date Code Description Status 05/12/2021 82632 Diffusing Capacity Completed 05/12/2021 47778 Plethysmography Determination Rush ng Volumes & Per Airway Resist Completed 05/12/2021 61568 Bronchospasm Evaluation Complete d 04/21/2021 06834 Office/Outpatient Established Mo d MDM 30-39 Min Completed 04/21/2021 59909 Spirometry Completed 04/14/2021 33943 Office/Outpatient New Low MDM 30 -44 Minutes Completed Medical Devices Description No Information Available Encounters Type Date Location Provider Dx Diagnosis Office Visit 04/21/2021 10:00a [facility] Pulmonary/Thoracic Lawrenc ramez Hendrix MD R91.8 Other nonspecific abnormal finding of rush ng field F17.218 Nicotine dependence, cigaret david, w oth disorders Office Visit 04/14/2021 9:00a [facility] Orthopedics Nash Cotton MD Z98.890 Other [...] 11:30 am - Nash Cotton MD at [facility] 05/13/2021 - Silverio Hendrix MD* R91.8 Other nonspecific abnormal finding of lung field * J44.9 Chronic obstructive pulmonary disease, unspecified * F17.218 Nicotine dependence, cigarettes, with other nicotine-induced disorders * * New Labs:* Coag Panel For Procedures, Ordered: 05/13/21 * New Orders:* Bronchoscopy in [place], Ordered: 05/13/21 * Comments:* ~ At this point, we plan bronchoscopy under [place] assistance. Preop labs will be drawn. Risks [...] 0 Silverio Hendrix M.D. ABN CT Scheduled [facility] [address] [place] [address] [phone] Silverio Hendrix M.D. AABN FINDING LUNG Scheduled [address] [id number] [phone]
--- OUTSIDE RECORDS SUMMARY | 2021-06-03 06:31 | CCD | Continuity of Care Document ---
Author Ruthie Iqbal MD Organization Unknown Address [address] [place] [address] Phone [phone] Care Team Providers Care Meat And Seafood Clerk Name Role Phone AUTM Unavailable Problems Description [...] lb BMI (Body Mass Index) 26.1 kg/m2 [place] Body Weight 120 lb Weight 68.947 kg BSA (Body Surface Area) 1.74 m2 04/21/2021 10:06am BP Systolic 108 mmHg BP Diastolic 68 mmHg Heart Rate 66 /min O2 % BldC Oximetry 100 % Room Air Height 64 inches 5'4" Weight 150.00 lb BMI (Body Mass Index) 25.7 kg/m2 [place] Body Weight 120 lb Weight 68.040 kg BSA (Body Surface Area) 1.73 m2 Results Test Acquired Date Facility Test Result H/L Range Note FVL/[place] 05/13/2021 Medgraphics PDFReport SEE IMAGE FVC-Pred 3.36 L FVC-Pre 3.35 L FVC-%Pred-Pre 99 L FVC-LLN 2.66 L Fev1-Pred 2.61 L Fev1-Pre 2.19 L Fev1-%Pred-Pre 84 L Fev1-LLN 2.02 L Fev6-Pred 3.25 L Fev6-Pre 3.27 L Fev6-%Pred-Pre 100 L Fev6-LLN 2.57 L Fqv6xii-Sgbl 78 % Rjq8vty-Qsv 65 % Omq4vdz-%Pred-Pre 83 % Xfr0duj-WGL 69 % Iaz5tpu-Cqob 97 % Cho8ygl-Bwa 98 % Wry7xez-%Pred-Pre 100 % FEFMax-Pred 6.40 L/E/sec FEFMax-Pre 3.37 L/E/sec FEFMax-%Pred-Pre 52 L/E/sec FEFMax-LLN 4.68 L/E/sec Bym2481-Yeif 2.43 L/E/sec Ktr5054-Kxa 1.46 L/E/sec Ngk3989-%Pred-Pre 60 L/E/sec Jdp0247-AON 1.19 L/E/sec ExpTime-Pre 8.58 sec Nou0zjc4-Sdcc 81 % Vay2prg1-Oxf 67 % Mbz0vtf5-%Pred-Pre 82 % Vjj0wcf4-FYJ 72 % Procedures Date Code Description Status 05/12/2021 37978 Diffusing Capacity Completed 05/12/2021 12054 Plethysmography Determination Rush ng Volumes & Per Airway Resist Completed 05/12/2021 24433 Bronchospasm Evaluation Complete d 04/21/2021 07823 Office/Outpatient Established Mo d MDM 30-39 Min Completed 04/21/2021 46301 Spirometry Completed 04/14/2021 17711 Office/Outpatient New Low MDM 30 -44 Minutes Completed Medical Devices Description No Information Available Encounters Type Date Location Provider Dx Diagnosis Office Visit 04/21/2021 10:00a [facility] Pulmonary/Thoracic Lawrenc ramez Hendrix MD R91.8 Other nonspecific abnormal finding of rush ng field F17.218 Nicotine dependence, cigaret david, w oth disorders Office Visit 04/14/2021 9:00a [facility] Orthopedics Nash Cotton MD Z98.890 Other [...] 11:30 am - Nash Cotton MD at [facility] 05/13/2021 - Silverio Hendrix MD* R91.8 Other nonspecific abnormal finding of lung field * J44.9 Chronic obstructive pulmonary disease, unspecified * F17.218 Nicotine dependence, cigarettes, with other nicotine-induced disorders * * New Labs:* Coag Panel For Procedures, Ordered: 05/13/21 * New Orders:* Bronchoscopy in [place], Ordered: 05/13/21 * Comments:* ~ At this point, we plan bronchoscopy under [place] assistance. Preop labs will be drawn. Risks [...] 0 Silverio Hendrix M.D. ABN CT Scheduled [facility] [address] [place] [address] [phone] Silverio Hendrix M.D. AABN FINDING LUNG Scheduled [address] [id number] [phone]
--- OUTSIDE RECORDS SUMMARY | 2021-06-03 06:31 | CCD | Continuity of Care Document ---
Author Ruthie Iqbal MD Organization Unknown Address [address] [place] [address] Phone [phone] Care Team Providers Care Wetlands Technician Name Role Phone AUTM Unavailable Problems [...] lb BMI (Body Mass Index) 26.1 kg/m2 [place] Body Weight 120 lb Weight 68.947 kg BSA (Body Surface Area) 1.74 m2 04/21/2021 10:06am BP Systolic 108 mmHg BP Diastolic 68 mmHg Heart Rate 66 /min O2 % BldC Oximetry 100 % Room Air Height 64 inches 5'4" Weight 150.00 lb BMI (Body Mass Index) 25.7 kg/m2 [place] Body Weight 120 lb Weight 68.040 kg BSA (Body Surface Area) 1.73 m2 Results Test Acquired Date Facility Test Result H/L Range Note FVL/[place] 05/13/2021 [facility] PD[facility]eport SEE IMAGE FVC-Pred 3.36 L FVC-Pre 3.35 L FVC-%Pred-Pre 99 L FVC-LLN 2.66 L Fev1-Pred 2.61 L Fev1-Pre 2.19 L Fev1-%Pred-Pre 84 L Fev1-LLN 2.02 L Fev6-Pred 3.25 L Fev6-Pre 3.27 L Fev6-%Pred-Pre 100 L Fev6-LLN 2.57 L Lrr9wdb-Jdbl 78 % Bjm6uyr-Mwo 65 % Wps2afq-%Pred-Pre 83 % Uyr2kjv-UGX 69 % Ank2hox-Rsiw 97 % Rth7exl-Plr 98 % Aew9awk-%Pred-Pre 100 % FEFMax-Pred 6.40 L/E/sec FEFMax-Pre 3.37 L/E/sec FEFMax-%Pred-Pre 52 L/E/sec FEFMax-LLN 4.68 L/E/sec Ifl1917-Zfsd 2.43 L/E/sec Kvi3994-Icb 1.46 L/E/sec Fkn7443-%Pred-Pre 60 L/E/sec Fxv5717-HOG 1.19 L/E/sec ExpTime-Pre 8.58 sec Zlq3soa1-Wagh 81 % Wkx6gow0-Crr 67 % Hon9wtt8-%Pred-Pre 82 % Bif9jlk2-HUO 72 % Procedures Date Code Description Status 05/12/2021 24885 Diffusing Capacity Completed 05/12/2021 80900 Plethysmography Determination Rush ng Volumes & Per Airway Resist Completed 05/12/2021 12865 Bronchospasm Evaluation Complete d 04/21/2021 23748 Office/Outpatient Established Mo d MDM 30-39 Min Completed 04/21/2021 03972 Spirometry Completed 04/14/2021 21977 Office/Outpatient New Low MDM 30 -44 Minutes Completed Medical Devices Description No Information Available Encounters Type Date Location Provider Dx Diagnosis Office Visit 04/21/2021 10:00a [facility] Pulmonary/Thoracic Lawrenc ramez Hendrix MD R91.8 Other nonspecific abnormal finding of rush ng field F17.218 Nicotine dependence, cigaret david, w oth disorders Office Visit 04/14/2021 9:00a [facility] Orthopedics Nash Cotton MD Z98.890 [...] 11:30 am - Nash Cotton MD at [facility] Orthopedics 05/13/2021 - Silverio Hendrix MD* R91.8 Other nonspecific abnormal finding of lung field * J44.9 Chronic obstructive pulmonary disease, unspecified * F17.218 Nicotine dependence, cigarettes, with other nicotine-induced disorders * * New Labs:* Coag Panel For Procedures, Ordered: 05/13/21 * New Orders:* Bronchoscopy in [place], Ordered: 05/13/21 * Comments:* ~ At this point, we plan bronchoscopy under [place] assistance. Preop labs will be drawn. Risks [...] 0 Silverio Hendrix M.D. ABN CT Scheduled [facility] [address] [place] [address] [phone] Sivlerio Hendrix M.D. AABN FINDING LUNG Scheduled [address] [place] [phone]
--- OUTSIDE RECORDS SUMMARY | 2021-06-03 06:31 | CCD | Continuity of Care Document ---
Author Ruthie Iqbal MD Organization Unknown Address [address] [place] [address] Phone [phone] Care Team Providers Care Fluoroscope Operator Name Role Phone AUTM Unavailable Problems [...] lb BMI (Body Mass Index) 26.1 kg/m2 [place] Body Weight 120 lb Weight 68.947 kg BSA (Body Surface Area) 1.74 m2 04/21/2021 10:06am BP Systolic 108 mmHg BP Diastolic 68 mmHg Heart Rate 66 /min O2 % BldC Oximetry 100 % Room Air Height 64 inches 5'4" Weight 150.00 lb BMI (Body Mass Index) 25.7 kg/m2 [place] Body Weight 120 lb Weight 68.040 kg BSA (Body Surface Area) 1.73 m2 Results Test Acquired Date Facility Test Result H/L Range Note FVL/[place] 05/13/2021 [facility] PDFReport SEE IMAGE FVC-Pred 3.36 L FVC-Pre 3.35 L FVC-%Pred-Pre 99 L FVC-LLN 2.66 L Fev1-Pred 2.61 L Fev1-Pre 2.19 L Fev1-%Pred-Pre 84 L Fev1-LLN 2.02 L Fev6-Pred 3.25 L Fev6-Pre 3.27 L Fev6-%Pred-Pre 100 L Fev6-LLN 2.57 L Txi5lqn-Ebhw 78 % Fan3xfj-Znc 65 % Mpp1cpj-%Pred-Pre 83 % Ska0bpb-CSA 69 % Uwd0kys-Cfrt 97 % Gpp7xtm-Kcc 98 % Oaa4yar-%Pred-Pre 100 % FEFMax-Pred 6.40 L/E/sec FEFMax-Pre 3.37 L/E/sec FEFMax-%Pred-Pre 52 L/E/sec FEFMax-LLN 4.68 L/E/sec Wfd4640-Qemz 2.43 L/E/sec Tmz3913-Nxp 1.46 L/E/sec Bbv9357-%Pred-Pre 60 L/E/sec Hwb1614-JEQ 1.19 L/E/sec ExpTime-Pre 8.58 sec Uta5otw9-Qqoy 81 % Szq4zkf7-Pes 67 % Dit6sij0-%Pred-Pre 82 % Yts8tzb2-CHO 72 % Procedures Date Code Description Status 05/12/2021 41539 Diffusing Capacity Completed 05/12/2021 98230 Plethysmography Determination Rush ng Volumes & Per Airway Resist Completed 05/12/2021 40365 Bronchospasm Evaluation Complete d 04/21/2021 79244 Office/Outpatient Established Mo d MDM 30-39 Min Completed 04/21/2021 80477 Spirometry Completed 04/14/2021 92594 Office/Outpatient New Low MDM 30 -44 Minutes Completed Medical Devices Description No Information Available Encounters Type Date Location Provider Dx Diagnosis Office Visit 04/21/2021 10:00a [facility] Pulmonary/Thoracic Lawrenc ramez Hendrix MD R91.8 Other nonspecific abnormal finding of rush ng field F17.218 Nicotine dependence, cigaret david, w oth disorders Office Visit 04/14/2021 9:00a [facility] Orthopedics Nash Cotton MD Z98.890 [...] 11:30 am - Nash Cotton MD at [facility] Orthopedics 05/13/2021 - Silverio Hendrix MD* R91.8 Other nonspecific abnormal finding of lung field * J44.9 Chronic obstructive pulmonary disease, unspecified * F17.218 Nicotine dependence, cigarettes, with other nicotine-induced disorders * * New Labs:* Coag Panel For Procedures, Ordered: 05/13/21 * New Orders:* Bronchoscopy in [place], Ordered: 05/13/21 * Comments:* ~ At this point, we plan bronchoscopy under [place] assistance. Preop labs will be drawn. Risks [...] 0 Silverio Hendrix M.D. ABN CT Scheduled [facility] [address] [place] [address] [phone] Silverio Hendrix M.D. AABN FINDING LUNG Scheduled [address] [phone]
--- OUTSIDE RECORDS SUMMARY | 2021-06-03 06:32 | CCD | Continuity of Care Document ---
Author Author Ruthie HENDRIX MD Organization Unknown Address [address] [place] [address] Phone [phone] Care Team Providers Care Retail Mortgage Banker Name Role Phone AUTM Unavailable Problems Description No Active Problems Social History Type Date Description Comments Sex Unknown ETOH Use Drinks 6 Alcoholic Beverages Per Week Tobacco Use Reviewed: 06/21/18 Patient is a current smoker, smokes every day 1ppd since age 11 Recreational Drug Use Denies Drug Use Smoking Status Reviewed: 04/21/21 Patient is a current smoker, smokes every day 1ppd since age 11 Allergies, Adverse Reactions, Alerts Description No Known Drug Allergies Medications Active Medications SIG Qnty Indications Ordering Provide r Date Levothyroxine Sodium 50mcg Tablets 1 by mouth every day Unknown Amphetamine-Dextroamphetamine 10mg Tablets Take 2 Tablets By Mouth Once Daily . DO Not Exceed 2 Per 24 Hour Felicita Khan, P.A. Immunizations Description No Information Available Vital Signs Date Vital Result Comment 04/21/2021 10:06am BP Systolic 108 mmHg BP Diastolic 68 mmHg Heart Rate 66 /min O2 % BldC Oximetry 100 % Room Air Height 64 inches 5'4" Weight 150.00 lb BMI (Body Mass Index) 25.7 kg/m2 [place] Body Weight 120 lb Weight 68.040 kg BSA (Body Surface Area) 1.73 m2 04/14/2021 8:48am Body Temperature 96.7 F Results Description No Information Available Procedures Date Code Description Status 04/14/2021 04883 Office/Outpatient New Low MDM 30 -44 Minutes Completed Medical Devices Description No Information Available Encounters Type Date Location Provider Dx Diagnosis Office Visit 04/14/2021 9:00a [facility] Orthopedics Nash Cotton MD Z98.890 Other specified postprocedural states M25.571 Pain in right ankle and join ts of right foot Assessments Date Code Description Provider 04/14/2021 Z98.890 History of ankle surgery Nash mojica MD 04/14/2021 M25.571 Pain in right ankle and joints o f right foot Nash Cotton MD Plan of Treatment Future Appointment(s):* 07/15/2021 11:30 am - Nash Cotton MD at [facility] Orthopedics Functional Status Functional Condition Comment Date Status Independent with all ADL's Activ e Independent with all IADL's Acti ve Mental Status Mental Condition Comment Date Status Cognitive ability not impaired A ctive Referrals Refer to Reason for Referral Status Appt Date Silverio Hendrix M.D. ABN CT Scheduled [facility] [address] [place] [phone] Silverio Hendrix M.D. AABN FINDING LUNG Scheduled 2020 [facility] [address] [place] [address] [phone]
--- OUTSIDE RECORDS SUMMARY | 2021-06-03 06:32 | CCD ---
Author Author [facility] Organization [facility] Address Unknown Phone Unavailable Care Team Providers Care Security Advisor Name Role Phone Felicita Manning Unavailable PROBLEMS Type Condition ICD9-CM Code RGC70-DG Code Onset Dates Condition S tatus W/U Status Risk SNOMED Code Notes Problem Reflux esophagitis K21.0 Active confirmed 2 14364949 Problem Herpes simplex B00.9 Active confirmed 84910 005 Problem Lipoma of back D17.1 Active confirmed 22797 3002 Problem Acquired hypothyroidism E03.9 Active confirmed 767368473 Problem Psoriasis L40.9 Active confirmed 7809689 Problem Vitamin D insufficiency E55.9 Active confirmed 73502359 Problem Anxiety F41.9 Active confirmed 73551850 Problem Mixed hyperlipidemia E78.2 Active confirmed 119436866 Problem Attention deficit disorder (ADD) in adult F98.8 Active confirmed 961943007 Problem Moderate major depression F32.1 Active confirmed 697828 Problem Cigarette nicotine dependence without complication F17.210 Active confirmed 82064316 ALLERGIES No Known Allergies ENCOUNTERS from 1965 to 2021-04-01 Encounter Location Date Provider Diagnosis [address] [phone] [place] [address] Mar, Felicita Manning IMMUNIZATIONS Vaccine Route Administration Date Status MMR 0.5mL SC Subcutaneous May 22, 2019 Administered SOCIAL HISTORY Tobacco Use: Social History Observation Description Date Details (start date - stop date) Current Smoker Sex Assigned At : Social History Observation Description Sex Assigned At Unknown Audit Question Answer Notes Total Score: 5 Interpretation: Alcohol Education Language: Question Answer Notes Languages spoken: Mongolian Sexual Hx: Question Answer Notes Had sex [...] Notes Start Da te End Date Status Dovonex 0.005 % 1 application to affected ar ea Externally Twice a day for 30 days Active Meloxicam 15 MG 1 tablet Orally Once a day for 30 day(s) Active Amoxicillin-Pot Clavulanate 875-125 MG 1 tablet Orally every 12 hrs for 10 day(s) Dec, Active Famotidine 20 MG 1 tablet Orally bid for 30 day(s) Active Vitamin D3 50 MCG (2000 UT) 1 tablet Orally Once a day for 30 da y(s) Dec, Active hydrOXYzine HCl 25 MG 1 tablet as needed Orally every 8 hrs Sep, Active Betamethasone Dipropionate Aug 0.05 % 1 application to affected area Externally bid to psoriasis on weekends only for 30 days Active Fluconazole 150 MG 1 tablet Orally one dose for 1 days Dec, Active Levothyroxine Sodium 125 MCG 1 tablet on an empty stom ach in the morning Orally Once a day for 30 days Aug, Active Cyclobenzaprine HCl 5 MG 1 tablet as needed Orally Th ree times a day for 30 days Aug, Active Adderall 10 MG 2 tablets Orally Daily (MDD-2 tabs) for 30 days Mar, Active Valtrex 1 GM 1 tablet Orally bid FOR 5 DAYS for 30 days Jun, Active Ranitidine HCl 150 MG 1 tablet Orally bid for 30 day(s) May, Active PROCEDURES No Information RESULTS No Results REASON FOR VISIT PET scan: denied MEDICAL (GENERAL) HISTORY Type Description Date Medical [...] Medication Name Sig Start Date Stop Date Fluconazole 150 MG 1 tablet Orally one dose for 1 days Dec, 2 021 Amoxicillin-Pot Clavulanate 875-125 MG 1 tablet Orally every 12 hrs for 10 day(s) Dec, Betamethasone Dipropionate Aug 0.05 % 1 application to affected area Externally bid to psoriasis on weekends only for 30 days Dovonex 0.005 % 1 application to affected ar ea Externally Twice a day for 30 days Levothyroxine Sodium 125 MCG 1 tablet on an empty stom ach in the morning Orally Once a day for 30 days Aug, Adderall 10 MG 2 tablets Orally Daily (MDD-2 tabs) for 30 days Mar, Next Appt Details Provider Name:Sierra Felton, 2021-06-02 02:15:00 PM, [address] [facility], , [place], [address], Insurance Providers Payer Name Payer Address Payer Phone Insured Name Patient Relati onship to Insured Coverage Start Date Coverage End Date [facility] [employer] [facility] [address] [facility] [phone] LIZZETH LEE self
--- OUTSIDE RECORDS SUMMARY | 2021-06-03 06:32 | CCD | Continuity of Care Document ---
Author Ruthie Iqbal MD Organization Unknown Address [address] [place] [address] Phone [phone] Care Team Providers Care Human Factors Ergonomist Name Role Phone AUTM Unavailable Problems Description [...] lb BMI (Body Mass Index) 26.1 kg/m2 [place] Body Weight 120 lb Weight 68.947 kg BSA (Body Surface Area) 1.74 m2 04/21/2021 10:06am BP Systolic 108 mmHg BP Diastolic 68 mmHg Heart Rate 66 /min O2 % BldC Oximetry 100 % Room Air Height 64 inches 5'4" Weight 150.00 lb BMI (Body Mass Index) 25.7 kg/m2 [place] Body Weight 120 lb Weight 68.040 kg BSA (Body Surface Area) 1.73 m2 Results Test Acquired Date Facility Test Result H/L Range Note FVL/[place] 05/13/2021 [facility] PDFReport SEE IMAGE FVC-Pred 3.36 L FVC-Pre 3.35 L FVC-%Pred-Pre 99 L FVC-LLN 2.66 L Fev1-Pred 2.61 L Fev1-Pre 2.19 L Fev1-%Pred-Pre 84 L Fev1-LLN 2.02 L Fev6-Pred 3.25 L Fev6-Pre 3.27 L Fev6-%Pred-Pre 100 L Fev6-LLN 2.57 L Jwm2pri-Qvid 78 % Apu2wqd-Pre 65 % Nmk5smi-%Pred-Pre 83 % Dvc7hdd-WFO 69 % Zhe4fii-Kbky 97 % Pwk7ceg-Uhq 98 % Nms3uji-%Pred-Pre 100 % FEFMax-Pred 6.40 L/E/sec FEFMax-Pre 3.37 L/E/sec FEFMax-%Pred-Pre 52 L/E/sec FEFMax-LLN 4.68 L/E/sec Auw4810-Ibqg 2.43 L/E/sec Utm1127-Ztm 1.46 L/E/sec Swj1163-%Pred-Pre 60 L/E/sec Ufw1032-ZDC 1.19 L/E/sec ExpTime-Pre 8.58 sec Ggk0spp2-Nxab 81 % Dfc6qye4-Gpu 67 % Aiu6xce6-%Pred-Pre 82 % Snh1pqr8-CTQ 72 % Procedures Date Code Description Status 05/12/2021 68496 Diffusing Capacity Completed 05/12/2021 87690 Plethysmography Determination Rush ng Volumes & Per Airway Resist Completed 05/12/2021 73794 Bronchospasm Evaluation Complete d 04/21/2021 67816 Office/Outpatient Established Mo d MDM 30-39 Min Completed 04/21/2021 56521 Spirometry Completed 04/14/2021 33916 Office/Outpatient New Low MDM 30 -44 Minutes Completed Medical Devices Description No Information Available Encounters Type Date Location Provider Dx Diagnosis Office Visit 04/21/2021 10:00a [facility] Pulmonary/Thoracic Lawrenc ramez Hendrix MD R91.8 Other nonspecific abnormal finding of rush ng field F17.218 Nicotine dependence, cigaret david, w oth disorders Office Visit 04/14/2021 9:00a [facility] Orthopedics Nash Cotton MD Z98.890 Other [...] 11:30 am - Nash Cotton MD at [facility] Orthopedics 05/13/2021 - Silverio Hendrix MD* R91.8 Other nonspecific abnormal finding of lung field * J44.9 Chronic obstructive pulmonary disease, unspecified * F17.218 Nicotine dependence, cigarettes, with other nicotine-induced disorders * * New Labs:* Coag Panel For Procedures, Ordered: 05/13/21 * New Orders:* Bronchoscopy in [place], Ordered: 05/13/21 * Comments:* ~ At this point, we plan bronchoscopy under [place] assistance. Preop labs will be drawn. Risks [...] 0 Silverio Hendrix M.D. ABN CT Scheduled [facility] [address] [place] [address] [phone] Silverio Hendrix M.D. AABN FINDING LUNG Scheduled [address] [place] [phone]
--- OUTSIDE RECORDS SUMMARY | 2021-06-03 06:32 | CCD | Continuity of Care Document ---
Author Author Pulmonary Lab, Ruthie Sykes Organization Unknown Address [address] [place] [address] Phone [phone] Care Team Providers Care Painter Rough Name Role Phone AUTM Unavailable Problems Description [...] lb BMI (Body Mass Index) 25.7 kg/m2 [place] Body Weight 120 lb Weight 68.040 kg BSA (Body Surface Area) 1.73 m2 04/14/2021 8:48am Body Temperature 96.7 F Results Description No Information Available Procedures Date Code Description Status 05/12/2021 71466 Diffusing Capacity Completed 05/12/2021 03607 Plethysmography Determination Rush ng Volumes & Per Airway Resist Completed 05/12/2021 08013 Bronchospasm Evaluation Complete d 04/21/2021 13868 Office/Outpatient Established Mo d MDM 30-39 Min Completed 04/21/2021 16436 Spirometry Completed 04/14/2021 74118 Office/Outpatient New Low MDM 30 -44 Minutes Completed Medical Devices Description No Information Available Encounters Type Date Location Provider Dx Diagnosis Office Visit 04/21/2021 10:00a [facility] Pulmonary/Thoracic Lawrxenia Hendrix MD R91.8 Other nonspecific abnormal finding of rush ng field F17.218 Nicotine dependence, cigaret david, w oth disorders Office Visit 04/14/2021 9:00a [facility] Orthopedics Nash Cotton MD Z98.890 Other specified postprocedural states M25.571 Pain in right ankle and join ts of right foot Assessments Date Code Description Provider 05/12/2021 R91.8 Other nonspecific abnormal findi ng [...] 11:30 am - Nash Cotton MD at [facility] 04/21/2021 - Silverio Hendrix MD* R91.8 Other nonspecific abnormal finding of lung field * F17.218 Nicotine dependence, cigarettes, with other nicotine-induced disorders * * Comments:* ~ At this point, given the change in her lesion, it really should be biopsied. There was talk in her primary care's notes about a PET scan, but given my primary concern that this may be bronchoalveolar cell carcinoma, a PET scan can be falsely negative and, therefore, falsely reassuring. I suggest a repeat CT scan under [place] protocol with plans for robotic assistance for biopsy. She is in agreement with that. She will need full pulmonary function studies in the interim as well.~ We discussed smoking cessation, but it does not sound like she is ready at this point.~ I will arrange for a [place] protocol CT and full PFT's, and I will see her in return at that time. We will arrange for her biopsy. ~ She is to work on smoking cessation in the interim. We await the outcome of the above. * Follow up:* See with [place] [facility] CT/ PFTs Functional Status Functional Condition Comment Date Status Independent with all ADL's Activ e Independent with all IADL's Acti ve Mental Status Mental Condition Comment Date Status Cognitive ability not impaired A ctive Referrals Refer to Reason for Referral Status Appt Date Radiology/Procedure CT Chest approval Created 0 Silverio Hendrix M.D. ABN CT Scheduled [address] [place], [place] [id number] [phone] Silverio Hendrix M.D. AABN FINDING LUNG Scheduled 2020 [facility] [address] [place], [place] [id number] [phone]
--- OUTSIDE RECORDS SUMMARY | 2021-06-03 06:32 | CCD | Continuity of Care Document ---
Author Author uRthie HENDRIX MD Organization Unknown Address [address] [place] [address] Phone [phone] Care Team Providers Care Brand Marketing Specialist Name Role Phone AUTM Unavailable Problems Description [...] lb BMI (Body Mass Index) 25.7 kg/m2 [place] Body Weight 120 lb Weight 68.040 kg BSA (Body Surface Area) 1.73 m2 04/14/2021 8:48am Body Temperature 96.7 F Results Description No Information Available Procedures Date Code Description Status 04/21/2021 59122 Office/Outpatient Established Mo d MDM 30-39 Min Completed 04/21/2021 53448 Spirometry Completed 04/14/2021 12729 Office/Outpatient New Low MDM 30 -44 Minutes Completed Medical Devices Description No Information Available Encounters Type Date Location Provider Dx Diagnosis Office Visit 04/21/2021 10:00a [facility] Pulmonary/Thoracic Sandeep Hendrix MD R91.8 Other nonspecific abnormal finding of rush ng field F17.218 Nicotine dependence, cigaret david, w oth disorders Office Visit 04/14/2021 9:00a [facility] Orthopedics Nash Cotton MD Z98.890 Other specified postprocedural states M25.571 Pain in right ankle and join ts of right foot Assessments Date Code Description Provider 04/21/2021 R91.8 Other nonspecific abnormal findi ng of lung field Silverio Hendrix MD 04/21/2021 F17.218 Nicotine dependence, cigarettes, with other nicotine-induced disorders Silverio Hendrix MD 04/14/2021 Z98.890 History of ankle surgery Nash mojica MD 04/14/2021 M25.571 Pain in right ankle and joints o f right foot Nash Cotton MD Plan of Treatment Future Appointment(s):* 05/12/2021 9:00 am - Pulmonary Lab at [facility] Pulmonary/Thoracic * 07/15/2021 11:30 am - Nash Cotton MD at [facility] Orthopedics 04/21/2021 - Silverio Hendrix MD* R91.8 Other nonspecific abnormal finding of lung field * F17.218 Nicotine dependence, cigarettes, with other nicotine-induced disorders * * New Labs:* PFT/HGB Off/No Meds, Ordered: 04/21/21 * New Xrays:* CT Chest W/O Contrast, Ordered: 04/21/21 * Comments:* ~ At this point, given the change in her lesion, it really should be biopsied. There was talk in her primary care's notes about a PET scan, but given my primary concern that this may be bronchoalveolar cell carcinoma, a PET scan can be falsely negative and, therefore, falsely reassuring. I suggest a repeat CT scan under [place] protocol with plans for robotic assistance for biopsy. She is in agreement with that. She will need full pulmonary function studies in the interim as well.~ We discussed smoking cessation, but it does not sound like she is ready at this point.~ I will arrange for a [place] protocol CT and full PFT's, and I will see her in return at that time. We will arrange for her biopsy. ~ She is to work on smoking cessation in the interim. We await the outcome of the above. * Follow up:* See with [place] [facility] CT/ PFTs Functional Status Functional Condition Comment Date Status Independent with all ADL's Activ e Independent with all IADL's Acti ve Mental Status Mental Condition Comment Date Status Cognitive ability not impaired A ctive Referrals Refer to Reason for Referral Status Appt Date Silverio Hendrix M.D. ABN CT Scheduled [facility] [address] [place], [place] [id number] [phone] Silverio Hendrix M.D. AABN FINDING LUNG Scheduled [address] [facility] [address] [place] [phone]
--- OUTSIDE RECORDS SUMMARY | 2021-06-03 06:32 | CCD ---
Author Author [facility] Organization [facility] Address Unknown Phone Unavailable Care Team Providers Care Radar Engineer Name Role Phone Felicita Manning Unavailable PROBLEMS Type Condition ICD9-CM Code [id number] Code Onset Dates Condition S tatus W/U Status Risk SNOMED Code Notes Problem Reflux esophagitis K21.0 Active confirmed 2 75657126 Problem Herpes simplex B00.9 Active confirmed 61049 005 Problem Lipoma of back D17.1 Active confirmed 15715 3002 Problem Acquired hypothyroidism E03.9 Active confirmed 170223116 Problem Psoriasis L40.9 Active confirmed 7005779 Problem Vitamin D insufficiency E55.9 Active confirmed 79934410 Problem Anxiety F41.9 Active confirmed 32406460 Problem Mixed hyperlipidemia E78.2 Active confirmed 269219571 Problem Attention deficit disorder (ADD) in adult F98.8 Active confirmed 417766730 Problem Moderate major depression F32.1 Active confirmed 668494 Problem Cigarette nicotine dependence without complication F17.210 Active confirmed 99149123 ALLERGIES No Known Allergies ENCOUNTERS from 1965 to 2021-05-07 Encounter Location Date Provider Diagnosis [address] [phone] [place] [address] May, Felicita Manning IMMUNIZATIONS Vaccine Route Administration Date Status MMR 0.5mL SC Subcutaneous May 22, 2019 Administered SOCIAL HISTORY Tobacco Use: Social History Observation Description Date Details (start date - stop date) Current Smoker Sex Assigned At : Social History Observation Description Sex Assigned At Unknown Audit Question Answer Notes Total Score: 5 Interpretation: Alcohol Education Language: Question Answer Notes Languages spoken: Chinese Sexual Hx: Question Answer Notes Had sex [...] Information RESULTS No Results REASON FOR VISIT Adderall 10 MG Tablet refill MEDICAL (GENERAL) HISTORY Type Description Date Medical [...] Provider Name:Sierra Felton, 2021-06-02 02:15:00 PM, [address] [facility], , [place], [address], Insurance Providers Payer Name Payer Address Payer Phone Insured Name Patient Relati onship to Insured Coverage Start Date Coverage End Date [facility] COMMUNITY PLAN [facility] [address] [facility] [address] LIZZETH LEE self
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
--- OUTSIDE RECORDS SUMMARY | 2021-06-03 06:32 | CCD ---
Author Author [facility] Organization [facility] Address Unknown Phone Unavailable Care Team Providers Care Sample Case Porter Name Role Phone Felicita Manning Unavailable PROBLEMS Type Condition ICD9-CM Code LKJ97-CD Code Onset Dates Condition S tatus W/U Status Risk SNOMED Code Notes Problem Reflux esophagitis K21.0 Active confirmed 2 26849999 Problem Herpes simplex B00.9 Active confirmed 28577 005 Problem Lipoma of back D17.1 Active confirmed 19743 3002 Problem Acquired hypothyroidism E03.9 Active confirmed 564171493 Problem Psoriasis L40.9 Active confirmed 8513615 Problem Vitamin D insufficiency E55.9 Active confirmed 58055147 Problem Anxiety F41.9 Active confirmed 08277371 Problem Mixed hyperlipidemia E78.2 Active confirmed 686039613 Problem Attention deficit disorder (ADD) in adult F98.8 Active confirmed 265624552 Problem Moderate major depression F32.1 Active confirmed 512775 Problem Cigarette nicotine dependence without complication F17.210 Active confirmed 52093428 ALLERGIES No Known Allergies ENCOUNTERS from 1965 to 2021-03-06 Encounter Location Date Provider Diagnosis [address] [place] [address] Mar, Felicita Manning Psoriasis L40.9 IMMUNIZATIONS Vaccine Route Administration Date Status MMR 0.5mL SC Subcutaneous May 22, 2019 Administered SOCIAL HISTORY Tobacco Use: Social History Observation Description Date Details (start date - stop date) Current Smoker Sex Assigned At : Social History Observation Description Sex Assigned At Unknown Audit Question Answer Notes Total Score: 5 Interpretation: Alcohol Education Language: Question Answer Notes Languages spoken: North Korean Sexual Hx: Question Answer Notes Had sex [...] Information RESULTS No Results REASON FOR VISIT Refills MEDICAL (GENERAL) HISTORY Type Description Date Medical [...] Treatment Notes Treatm ent Clinical Notes Mar, Psoriasis (ICD-10 - L40.9) PLAN OF TREATMENT Medication Medication Name Sig [...] 30 days Mar, Next Appt Details Provider Name:Catrina Juarez, 08:30:00 AM, [address] [facility], , [place], [place], [facility], Insurance Providers Payer Name Payer Address Payer Phone Insured Name Patient Relati onship to Insured Coverage Start Date Coverage End Date [facility] COMMUNITY PLAN [facility] [address] [facility] [phone] LIZZETH LEE self
--- OUTSIDE RECORDS SUMMARY | 2021-06-03 06:32 | CCD ---
Author Author [facility] Organization [facility] Address Unknown Phone Unavailable Care Team Providers Care Concert Pianist Name Role Phone Felicita Manning Unavailable PROBLEMS Type Condition ICD9-CM Code RKL72-DV Code Onset Dates Condition S tatus W/U Status Risk SNOMED Code Notes Problem Reflux esophagitis K21.0 Active confirmed 2 81742176 Problem Herpes simplex B00.9 Active confirmed 16455 005 Problem Lipoma of back D17.1 Active confirmed 89603 3002 Problem Acquired hypothyroidism E03.9 Active confirmed 981525045 Problem Psoriasis L40.9 Active confirmed 3852535 Problem Vitamin D insufficiency E55.9 Active confirmed 87074590 Problem Anxiety F41.9 Active confirmed 27617913 Problem Mixed hyperlipidemia E78.2 Active confirmed 764752269 Problem Attention deficit disorder (ADD) in adult F98.8 Active confirmed 266710852 Problem Moderate major depression F32.1 Active confirmed 175289 Problem Cigarette nicotine dependence without complication F17.210 Active confirmed 47414042 ALLERGIES No Known Allergies ENCOUNTERS from 1965 to 2021-03-18 Encounter Location Date Provider Diagnosis [address] [phone] [place] [address] Mar, Felicita Manning Abnormal CT lung scr eening R91.8 IMMUNIZATIONS Vaccine Route Administration Date Status MMR 0.5mL SC Subcutaneous May 22, 2019 Administered SOCIAL HISTORY Tobacco Use: Social History Observation Description Date Details (start date - stop date) Current Smoker Sex Assigned At : Social History Observation Description Sex Assigned At Unknown Audit Question Answer Notes Total Score: 5 Interpretation: Alcohol Education Language: Question Answer Notes Languages spoken: Gibraltarian Sexual Hx: Question Answer Notes Had sex [...] 05/07/2019 REASON FOR REFERRAL from 1965 to 2021-03-18 Reason Current smoker. Most recent [facility] CT chest 01/14/2021 demonstrates IMPRESSION: There is a ground-glass nodule in the left lung apical region as described above and is potentially subtly developing more solid central component. Consider follow-up with PET-CT at this time. Pending PET-CT Chest|[facility] in [facility] past. Most recent consult note from 2018. Had CT Chest |Please evaluate and treat Diagnosis [address] lung screening ( R91.8) Referral Organization [facility] Referring Provider First Name Felicita Referring Provider Last Name Nigel Referring Provider Specialty Family Medicine Referred Provider [facility] Referred Provider Specialty Pulmonary Diseases Referral Priority Urgent Referral Appointment Date 2021-03-23 General Notes Felicita Manning PA-C 03/12 2:25:22 PM > Please refer. Thank you.Ruth Wright 03/12/2021 2:50:07 PM > REFERRAL AND [facility] REFERRAL FORM FAXRuth Olmos 03/12/2021 3:54:21 PM > called and left message to confirm receipt of referralRuth Wright 03/17/2021 8:47:47 AM > i was off yesterday 03/16 so i could not call on this. i called and left another message for office t o call me backRuth Wright 03/17/2021 11:36:42 AM > sierra called from pulmonary stating patient is booked for 03/23 just needs me to refax the [facility] referral form again stating they havent received this Clinical Notes Ruth Wright 03/12/2021 2 :50:27 PM > PRINTED VITAL SIGNS No information MEDICATIONS Medication SIG [...] Information RESULTS No Results REASON FOR VISIT CT Chest/Pulmonology MEDICAL (GENERAL) HISTORY Type Description Date Medical [...] Treatment Notes Treatm ent Clinical Notes Mar, Abnormal CT lung screening (ICD-10 - R91.8) PLAN OF TREATMENT Medication Medication Name Sig [...] Daily (MDD-2 tabs) for 30 days Mar, Treatment Notes Test Name Order Date [facility] PET SINGLE PULMONARY NODULE 2021-03-10 Referrals Referral Date Details 2021-03-23 2021-03-23, Current smoker. Most recent [facility] CT chest 01/14/2021 demonstrates IMPRESSION: There is a ground-glass nodule in the left lung apical region as described above and is potentially subtly developing more solid central component. Consider follow-up with PET-CT at this time. Pending PET-CT Chest|[facility] with [facility] in the past. Most recent consult note from 2018. Had CT Chest |Please evaluate and treat, [facility] Next Appt Details Provider Name:Sierra Felton, 2021-06-02 02:15:00 PM, [address] [facility], , [place], [address], Insurance Providers Payer Name Payer Address Payer Phone Insured Name Patient Relati onship to Insured Coverage Start Date Coverage End Date [facility] COMMUNITY PLAN [facility] [address] [facility] [phone] LIZZETH LEE self"
--- OUTSIDE RECORDS SUMMARY | 2021-06-03 06:32 | CCD ---
Author Author [facility] Organization [facility] Address Unknown Phone Unavailable Care Team Providers Care Herbicide Service Sales Representative Name Role Phone Felicita Manning Unavailable PROBLEMS Type Condition ICD9-CM Code [id number] Code Onset Dates Condition S tatus W/U Status Risk SNOMED Code Notes Problem Reflux esophagitis K21.0 Active confirmed 2 22607303 Problem Herpes simplex B00.9 Active confirmed 71556 005 Problem Lipoma of back D17.1 Active confirmed 57573 3002 Problem Acquired hypothyroidism E03.9 Active confirmed 961267726 Problem Psoriasis L40.9 Active confirmed 6935349 Problem Vitamin D insufficiency E55.9 Active confirmed 32414163 Problem Anxiety F41.9 Active confirmed 40423982 Problem Mixed hyperlipidemia E78.2 Active confirmed 930654383 Problem Attention deficit disorder (ADD) in adult F98.8 Active confirmed 052613555 Problem Moderate major depression F32.1 Active confirmed 504896 Problem Cigarette nicotine dependence without complication F17.210 Active confirmed 42081550 ALLERGIES No Known Allergies ENCOUNTERS from 1965 to 2021-04-09 Encounter Location Date Provider Diagnosis [address] [phone] [place] [address] Apr, Felicita Manning Acquired hypothyroid ism E03.9 IMMUNIZATIONS Vaccine Route Administration Date Status MMR 0.5mL SC Subcutaneous May 22, 2019 Administered SOCIAL HISTORY Tobacco Use: Social History Observation Description Date Details (start date - stop date) Current Smoker Sex Assigned At : Social History Observation Description Sex Assigned At Unknown Audit Question Answer Notes Total Score: 5 Interpretation: Alcohol Education Language: Question Answer Notes Languages spoken: Stateless Sexual Hx: Question Answer Notes Had sex [...] Notes Start Da te End Date Status Ranitidine HCl 150 MG 1 tablet Orally bid for 30 day(s) May, Active Amoxicillin-Pot Clavulanate 875-125 MG 1 tablet Orally every 12 hrs for 10 day(s) Dec, Active Levothyroxine Sodium 125 MCG 1 tablet on an empty stom ach in the morning Orally Once a day for 30 days Aug, Active Adderall 10 MG 2 tablets Orally Daily (MDD-2 tabs) for 30 days Apr, Active Vitamin D3 50 MCG (1999 UT) 1 tablet Orally Once a day for 30 da y(s) Dec, Active Dovonex 0.005 % 1 application to affected ar ea Externally Twice a day for 30 days Active Cyclobenzaprine HCl 5 MG 1 tablet as needed Orally Th ree times a day for 30 days Aug, Active Famotidine 20 MG 1 tablet Orally bid for 30 day(s) Active hydrOXYzine HCl 25 MG 1 tablet as needed Orally every 8 hrs Sep, Active Fluconazole 150 MG 1 tablet Orally one dose for 1 days Dec, Active Betamethasone Dipropionate Aug 0.05 % 1 application to affected area Externally bid to psoriasis on weekends only for 30 days Active Valtrex 1 GM 1 tablet Orally bid FOR 5 DAYS for 30 days Jun, Active Meloxicam 15 MG 1 tablet Orally Once a day for 30 day(s) Active PROCEDURES No Information RESULTS No Results [...] Notes Treatment Notes Treatm ent Clinical Notes Apr, Acquired hypothyroidism (ICD-10 - E03.9) PLAN OF TREATMENT Medication Medication Name Sig Start Date Stop Date Adderall 10 MG 2 tablets Orally Daily (MDD-2 tabs) for 30 days Apr, Levothyroxine Sodium 125 MCG 1 tablet on an empty stom ach in the morning Orally Once a day for 30 days Aug, Fluconazole 150 MG 1 tablet Orally one dose for 1 days Dec, Amoxicillin-Pot Clavulanate 875-125 MG 1 tablet Orally every 12 hrs for 10 day(s) Dec, Betamethasone Dipropionate Aug 0.05 % 1 application to affected area Externally bid to psoriasis on weekends only for 30 days Dovonex 0.005 % 1 application to affected ar ea Externally Twice a day for 30 days Next Appt Details Provider Name:Sierra Felton, 2021-06-02 02:15:00 PM, [address] [facility], , [place], [address], Insurance Providers Payer Name Payer Address Payer Phone Insured Name Patient Relati onship to Insured Coverage Start Date Coverage End Date [facility] COMMUNITY PLAN [facility] [address] [facility] [phone] LIZZETH LEE self
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
--- OUTSIDE RECORDS SUMMARY | 2021-06-03 06:32 | CCD | Continuity of Care Document ---
Author Author Ruthie MORA MD Organization Unknown Address [address] , [place] [address] Phone [phone] Care Team Providers Care Paperhanger Assistant Name Role Phone AUTM Unavailable Problems Description [...] lb BMI (Body Mass Index) 32.3 kg/m2 [place] Body Weight 120 lb Weight 85.390 kg BSA (Body Surface Area) 1.91 m2 Results Description No Information Available Procedures Date Code Description Status 04/14/2021 95404 Office/Outpatient New Low MDM 30 -44 Minutes Completed Medical Devices Description No Information Available Encounters Type Date Location Provider Dx Diagnosis Office Visit 04/14/2021 9:00a [facility] Orthopedics Nash Mora MD Z98.890 Other specified postprocedural states M25.571 Pain in right ankle and join ts of right foot Assessments Date Code Description Provider 04/14/2021 Z98.890 History of ankle surgery Nash mojica MD 04/14/2021 M25.571 Pain in right ankle and joints o f right foot Nash Mora MD Plan of Treatment Future Appointment(s):* 04/21/2021 11:30 am - Angel Mcneil DO at [facility] * 07/15/2021 11:30 am - Nash Mora MD at [facility] * 04/21/2021 10:00 am - Silverio Hendrix MD at [facility] Pulmonary/Thoracic 04/14/2021 - Nash Mora MD* Z98.890 History of ankle surgery* New Xrays:* XR Ankle Complete Minimum 3 Views Right, Ordered: 04/14/21 * Comments:* The patient demonstrates [...] that she may evaluate for use at [facility]. She would like to try this out and then follow-up in the office in approximately 3 months or so for reevaluation. She is also asked for referral with regards to chronic neck pain and sciatic symptoms. She will be referred to Dr. Eusebio miranda for this. * Follow up:* 3 months * M25.571 Pain in right ankle and joints of right foot Functional Status Functional Condition Comment Date Status Independent with all ADL's Activ e Independent with all IADL's Acti ve Mental Status Mental Condition Comment Date Status Cognitive ability not impaired A ctive Referrals Refer to Reason for Referral Status Appt Silverio Hendrix M.D. ABN CT Scheduled [facility] [place] [id number] [phone] Silverio Hendrix M.D. AABN FINDING LUNG Scheduled 2020 [facility] [address] [address] [phone]
--- OUTSIDE RECORDS SUMMARY | 2021-06-03 06:32 | CCD | Continuity of Care Document ---
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 Role Phone AUTM Unavailable Problems Description [...] lb BMI (Body Mass Index) 25.7 kg/m2 [place] Body Weight 120 lb Weight 68.040 kg BSA (Body Surface Area) 1.73 m2 04/14/2021 8:48am Body Temperature 96.7 F Results Description No Information Available Procedures Date Code Description Status 04/21/2021 65727 Office/Outpatient Established Mo d MDM 30-39 Min Completed 04/21/2021 30730 Spirometry Completed 04/14/2021 25620 Office/Outpatient New Low MDM 30 -44 Minutes Completed Medical Devices Description No Information Available Encounters Type Date Location Provider Dx Diagnosis Office Visit 04/21/2021 10:00a [facility] Pulmonary/Thoracic Sandeep Hendrix MD R91.8 Other nonspecific abnormal finding of rush ng field F17.218 Nicotine dependence, cigaret david, w oth disorders Office Visit 04/14/2021 9:00a [facility] Orthopedics Nash Cotton MD Z98.890 Other [...] Cotton MD Plan of Treatment Future Appointment(s):* 05/13/2021 11:00 am - Silverio Hendrix MD at [facility] Pulmonary/Thoracic * 07/15/2021 11:30 am - Nash Cotton MD at [facility] Orthopedics 04/21/2021 - Silverio Hendrix MD* [...] I suggest a repeat CT scan under [place] protocol with plans for robotic assistance for biopsy. She is in agreement with that. She will need full pulmonary function studies in the interim as well.~ We discussed smoking cessation, but it does not sound like she is ready at this point.~ I will arrange for a [place] protocol CT and full PFT's, and I will see her in return at that time. We will arrange for her biopsy. ~ She is to work on smoking cessation in the interim. We await the outcome of the above. * Follow up:* See with [facility] CT/ PFTs Functional Status Functional Condition Comment Date Status Independent with all ADL's Activ e Independent with all IADL's Acti ve Mental Status Mental Condition Comment Date Status Cognitive ability not impaired A ctive Referrals Refer to Reason for Referral Status Appt Date Radiology/Procedure CT Chest approval Created 0 Silverio Hendrix M.D. ABN CT Scheduled [facility] [address] [place] [address] [phone] Silverio Hendrix M.D. AABN FINDING LUNG Scheduled 2020 [facility] [address] [place] [phone]
--- OUTSIDE RECORDS SUMMARY | 2021-06-03 06:33 | CCD ---
Author Author [facility] Organization [facility] Address Unknown Phone Unavailable Support Name Relationship Address Phone BAD APPLE SALOON Next [place] [facility] [place] [address] [place] [employer] Next Of Kin [place] [address] - PRUDENCE, MOTHER) IMELDA(STEP Next Of [place] [phone] BAD AP[place] [address] [place] [address] TYRELL GARCIA Next Of Kin [address] [place] [address] [place] Next Of Kin [address] [facility] [address] [place] [address] [place] [address] [employer] Next Of Kin [address] [place] [address] [phone] [facility] Next Of Kin [address] [place] [address] [place] [address] [phone] UE Next Of Kin Unknown Unavailable [place] Next Of Kin [address] [place] [address] [place] [address] Unavailable [place] [address] TYRELL LEE ECON [facility] [address] [place], [place] [phone] Unavailable IMELDA FOSS [place]CON [id number] [place] [address] Unavailable Care Team Providers Care Poker Machine Attendant Name Role Phone Nash Cotton MD Unavailable Unavailable Cotton, Nash MD Unavailable Unavailable Cotton, Nash MD Unavailable Unavailable Cotton, Nash MD Unavailable Unavailable Cotton, Nash MD Unavailable Unavailable Cotton, Nash MD Unavailable Unavailable Cotton, Nash MD Unavailable Unavailable Cotton, Nash MD Unavailable Unavailable Cotton, Nash MD Unavailable Unavailable Cotton, Nash MD Unavailable Unavailable Hendrix, Jimmy Sawyer MD Unavailable Unavailable Hendrix, Jimmy Sawyer MD Unavailable Unavailable Hendrix, Jimmy Sawyer MD Unavailable Unavailable Hendrix, Jimmy Sawyer MD Unavailable Unavailable Hendrix, Jimmy Sawyer MD Unavailable Unavailable Hendrix, Jimmy Sawyer MD Unavailable Unavailable Hendrix, Jimmy Sawyer MD Unavailable Unavailable Hendrix, Jimmy Sawyer MD Unavailable Unavailable Hendrix, Jimmy Sawyer MD Unavailable Unavailable Hendrix, Jimmy Sawyer MD Unavailable Unavailable Hendrix, Jimmy Sawyer MD Unavailable Unavailable Hendrix, Jimmy Sawyer MD Unavailable Unavailable Hendrix, Jimmy Sawyer MD Unavailable Unavailable Hendrix, Jimmy Sawyer MD Unavailable Unavailable Hendrix, Jimmy Sawyer MD Unavailable Unavailable Hendrix, Jimmy Sawyer MD Unavailable Unavailable Hendrix, Jimmy Sawyer MD Unavailable Unavailable Hendrix, Jimmy Sawyer MD Unavailable Unavailable Hendrix, Jimmy Sawyer MD Unavailable Unavailable Ehndrix, Jimmy Sawyer MD Unavailable Unavailable Hendrix, Jimmy Sawyer MD Unavailable Unavailable Hendrix, Jimmy Sawyer MD Unavailable Unavailable Hendrix, Jimmy Sawyer MD Unavailable Unavailable Hendrix, Jimmy Sawyer MD Unavailable Unavailable Hendrix, Jimmy Sawyer MD Unavailable Unavailable Hendrix, Jimmy Sawyer MD Unavailable Unavailable Hendrix, Jimmy Sawyer MD Unavailable Unavailable Hendrix, Jimmy Sawyer MD Unavailable Unavailable Hendrix, Jimmy Sawyer MD Unavailable Unavailable Hendrix, Jimmy Sawyer MD Unavailable Unavailable Hendrix, Jimmy Sawyer MD Unavailable Unavailable Hendrix, Jimmy Sawyer MD Unavailable Unavailable Hendrix, Jimmy Sawyer MD Unavailable Unavailable Hendrix, Jimmy Sawyer MD Unavailable Unavailable Hendrix, Jimmy Sawyer MD Unavailable Unavailable Hendrix, Jimmy Sawyer MD Unavailable Unavailable Hendrix, Jimmy Sawyer MD Unavailable Unavailable Hendrix, Jimmy Sawyer MD Unavailable Unavailable Hendrix, Jimmy Sawyer MD Unavailable Unavailable Hendrix, Jimmy Sawyer MD Unavailable Unavailable Hendrix, Jimmy Sawyer MD Unavailable Unavailable Hendrix, Jimmy Sawyer MD Unavailable Unavailable Hendrix, Jimmy Sawyer MD Unavailable Unavailable Hendrix, Jimmy Sawyer MD Unavailable Unavailable Hendrix, Jimmy Sawyer MD Unavailable Unavailable Hendrix, Jimmy Sawyer MD Unavailable Unavailable Hendrix, Jimmy Sawyer MD Unavailable Unavailable Hendrix, Jimmy Sawyer MD Unavailable Unavailable Hendrix, Jimmy Sawyer MD Unavailable Unavailable Hendrix, Jimmy Sawyer MD Unavailable Unavailable Hendrix, Jimmy Sawyer MD Unavailable Unavailable Hendrix, Jimmy Sawyer MD Unavailable Unavailable Hendrix, Jimmy Sawyer MD Unavailable Unavailable Hendrix, Jimmy Sawyer MD Unavailable Unavailable Re-disclosure Warning The records that you are about to access may contain information from federally-assisted alcohol or drug abuse programs. If such information is present, then the following federally mandated warning applies: This information has been disclosed to you from records protected by federal confidentiality rules (42 CFR part 2). The federal rules prohibit you from making any further disclosure of this information unless further disclosure is expressly permitted by the written consent of the person to whom it pertains or as otherwise permitted by 42 CFR part 2. A general authorization for the release of medical or other information is NOT sufficient for this purpose. The Federal rules restrict any use of the information to criminally investigate or prosecute any alcohol or drug abuse patient.The records that you are about to access may contain highly sensitive health information, the redisclosure of which is protected by Article 27-F of the [facility] Public Health law. If you continue you may have access to information: Regarding HIV / AIDS; Provided by facilities licensed or operated by the [facility] Office of Mental Health; or Provided by the [facility] Office for People With Developmental Disabilities. If such information is present, then the following [facility] mandated warning applies: This information has been disclosed to you from confidential records which are protected by state law. State law prohibits you from making any further disclosure of this information without the specific written consent of the person to whom it pertains, or as otherwise permitted by law. Any unauthorized further disclosure in violation of state law may result in a fine or correction sentence or both. A general authorization for the release of medical or other information is NOT sufficient authorization for further disc losure. Family History Family Member Name Family Member Gender Family Member Status Date o f Status Description Data Source(s) Unknown Male Problem MEDENT ([facility], ) Encounters Encounter Providers Location Date Indications Data Source(s ) Outpatient Attender: Silverio Celaya/Jo-Ann/Mitch/R eindl 05/13/2021 11:00:00 AM EDT MEDENT ([facility], ) Unknown [address] [facility] [place] [address] 05/06/2021 12:00:00 AM EDT eCW1 ([facility]) Unknown [address] [facility] [address] 05/06/2021 12:00:00 AM EDT eCW1 ([facility]) Outpatient Attender: Silverio Celaya/Jo-Ann/Mitch/R eindl 04/21/2021 10:00:00 AM EDT MEDENT ([facility], ) Outpatient Attender: Nash Celaya/Jo-Ann/Mitch/Rein chani 04/14/2021 09:00:00 AM EDT [facility] ([facility] [place] [address] [facility] [address] 04/08/2021 12:00:00 AM EDT eCW1 ([facility]) [place] [address] [facility] [address] 03/19/2021 12:00:00 AM EDT eCW1 ([facility]) [place] [address] [facility] [address] 03/10/2021 12:00:00 AM EDT eCW1 ([facility]) [place] [address] [facility] [address] 03/05/2021 12:00:00 AM EDT eCW1 ([facility]) [place] [address] [facility] [address] 03/03/2021 12:00:00 AM EDT eCW1 ([facility]) Unknown [address] [facility] [address] 02/03/2021 12:00:00 AM EDT eCW1 ([facility]) Outpatient [address] [facility] [address] 01/19/2021 12:00:00 AM EDT eCW1 ([facility]) Unknown [address] [facility] [address] 01/19/2021 12:00:00 AM EDT eCW1 ([facility]) Unknown [address] [facility] [place] [address] 12/30/2020 12:00:00 AM EDT eCW1 ([facility]) Outpatient [address] [facility] [place] [address] 12/15/2020 12:00:00 AM EDT eCW1 ([facility]) Unknown [address] [facility] [place] [address] 12/02/2020 12:00:00 AM EDT eCW1 ([facility]) [place] [address] [facility] [address] 11/28/2020 12:00:00 AM EDT eCW1 ([facility]) Unknown [address] [facility] [address] 11/27/2020 12:00:00 AM EDT eCW1 ([facility]) Outpatient [address] [facility] [address] 11/26/2020 12:00:00 AM EDT eCW1 ([facility]) Unknown [address] [facility] [address] 10/24/2020 12:00:00 AM EDT eCW1 ([facility]) [place] [address] [facility] [address] 10/14/2020 12:00:00 AM EDT eCW1 ([facility]) [place] [address] [facility] [address] 09/23/2020 12:00:00 AM EST eCW1 ([facility]) [place] [address] [facility] [address] 08/26/2020 12:00:00 AM EST eCW1 ([facility]) [place] [address] [facility] [address] 07/29/2020 12:00:00 AM EST eCW1 ([facility]) [place] [address] [facility] [address] 06/23/2020 12:00:00 AM EST eCW1 ([facility]) [place] [address] [facility] [address] 06/16/2020 12:00:00 AM EST eCW1 ([facility]) [place] [address] [facility] [address] 06/12/2020 12:00:00 AM EST eCW1 ([facility]) [place] [address] [facility] [address] 06/12/2020 12:00:00 AM EST eCW1 ([facility]) [place] [address] [facility] [address] 05/27/2020 12:00:00 AM EDT eCW1 ([facility]) Unknown [address] [facility] [address] 05/20/2020 12:00:00 AM EDT eCW1 ([facility]) Medications Medication Brand Name Start Date Product Form Dose Route Admi nistrative Instructions Pharmacy Instructions Status Indications Reaction Description Data Source(s) 60 ACTUAT Albuterol 0.09 MG/ACTUAT Metered Dose Inhaler Albu terol Sulfate HFA 05/13/2021 12:00:00 AM EDT ORAL active MEDENT ([facility], ) 60 ACTUAT Budesonide 0.16 MG/ACTUAT / fo rmoterol fumarate 0.0045 MG/ACTUAT Metered Dose Inhaler [Symbicort] Symbicort 05/13/2021 12:00:00 AM EDT RESPIRATORY active MEDENT ( [facility], ) Amphetamine aspartate 2.5 MG / Amphetami ne Sulfate 2.5 MG / Dextroamphetamine saccharate 2.5 MG / Dextroamphetamine Sulfate 2.5 MG Oral Tablet [Adderall] Adderall 10 MG Adderall 10 MG 05/06/2021 12:00:00 AM EDT 2.0 {tablets} active Adderall 10 MG eCW1 ([facility]) Amphetamine aspartate 2.5 MG / Amphetami ne Sulfate 2.5 MG / Dextroamphetamine saccharate 2.5 MG / Dextroamphetamine Sulfate 2.5 MG Oral Tablet [Adderall] Adderall 10 MG Adderall 10 MG 05/06/2021 12:00:00 AM EDT 2.0 {tablets} active Adderall 10 MG eCW1 ([facility]) Amphetamine aspartate 2.5 MG / Amphetami ne Sulfate 2.5 MG / Dextroamphetamine saccharate 2.5 MG / Dextroamphetamine Sulfate 2.5 MG Oral Tablet [Adderall] Adderall 10 MG Adderall 10 MG 04/08/2021 12:00:00 AM EDT 2.0 {tablets} active Adderall 10 MG eCW1 ([facility]) Amphetamine aspartate 2.5 MG / Amphetami ne Sulfate 2.5 MG / Dextroamphetamine saccharate 2.5 MG / Dextroamphetamine Sulfate 2.5 MG Oral Tablet [Adderall] Adderall 10 MG Adderall 10 MG 03/05/2021 12:00:00 AM EDT 2.0 {tablets} active Adderall 10 MG eCW1 ([facility]) Amphetamine aspartate 2.5 MG / Amphetami ne Sulfate 2.5 MG / Dextroamphetamine saccharate 2.5 MG / Dextroamphetamine Sulfate 2.5 MG Oral Tablet [Adderall] Adderall 10 MG Adderall 10 MG 03/05/2021 12:00:00 AM EDT 2.0 {tablets} active Adderall 10 MG eCW1 ([facility]) Amphetamine aspartate 2.5 MG / Amphetami ne Sulfate 2.5 MG / Dextroamphetamine saccharate 2.5 MG / Dextroamphetamine Sulfate 2.5 MG Oral Tablet [Adderall] Adderall 10 MG Adderall 10 MG 03/05/2021 12:00:00 AM EDT 2.0 {tablets} active Adderall 10 MG eCW1 ([facility]) Amphetamine aspartate 2.5 MG / Amphetami ne Sulfate 2.5 MG / Dextroamphetamine saccharate 2.5 MG / Dextroamphetamine Sulfate 2.5 MG Oral Tablet [Adderall] Adderall 10 MG Adderall 10 MG 02/03/2021 12:00:00 AM EDT 2.0 {tablets} active Adderall 10 MG eCW1 ([facility]) Amphetamine aspartate 2.5 MG / Amphetami ne Sulfate 2.5 MG / Dextroamphetamine saccharate 2.5 MG / Dextroamphetamine Sulfate 2.5 MG Oral Tablet [Adderall] Adderall 10 MG Adderall 10 MG 02/03/2021 12:00:00 AM EDT 2.0 {tablets} active Adderall 10 MG eCW1 ([facility]) Amphetamine aspartate 2.5 MG / Amphetami ne Sulfate 2.5 MG / Dextroamphetamine saccharate 2.5 MG / Dextroamphetamine Sulfate 2.5 MG Oral Tablet [Adderall] Adderall 10 MG Adderall 10 MG 02/03/2021 12:00:00 AM EDT 2.0 {tablets} active Adderall 10 MG eCW1 ([facility]) Amoxicillin 875 MG / Clavulanate 125 MG Oral Tablet Amoxicillin-Pot Clavulanate 875-125 MG Amoxicillin-Pot Clavulanate 875-125 MG 01/19/2021 12:00:00 AM ED T 1.0 {tablet} active Amoxicillin-Pot Cla vulanate 875-125 MG eCW1 ([facility]) Amoxicillin 875 MG / Clavulanate 125 MG Oral Tablet Amoxicillin-Pot Clavulanate 875-125 MG Amoxicillin-Pot Clavulanate 875-125 MG 01/19/2021 12:00:00 AM ED T 1.0 {tablet} active Amoxicillin-Pot Cla vulanate 875-125 MG eCW1 ([facility]) Fluconazole 150 MG Oral Tablet Fluconazole 150 MG 01/19/2021 12:00: 00 AM EDT 1.0 {tablet} active Fluconazole 150 MG eCW1 ([facility]) Fluconazole 150 MG Oral Tablet Fluconazole 150 MG 01/19/2021 12:00: 00 AM EDT 1.0 {tablet} active Fluconazole 150 MG eCW1 ([facility]) Amoxicillin 875 MG / Clavulanate 125 MG Oral Tablet Amoxicillin-Pot Clavulanate 875-125 MG Amoxicillin-Pot Clavulanate 875-125 MG 01/19/2021 12:00:00 AM ED T 1.0 {tablet} active Amoxicillin-Pot Cla vulanate 875-125 MG eCW1 ([facility]) Amoxicillin 875 MG / Clavulanate 125 MG Oral Tablet Amoxicillin-Pot Clavulanate 875-125 MG Amoxicillin-Pot Clavulanate 875-125 MG 01/19/2021 12:00:00 AM ED T 1.0 {tablet} active Amoxicillin-Pot Cla vulanate 875-125 MG eCW1 ([facility]) Amoxicillin 875 MG / Clavulanate 125 MG Oral Tablet Amoxicillin-Pot Clavulanate 875-125 MG Amoxicillin-Pot Clavulanate 875-125 MG 01/19/2021 12:00:00 AM ED T 1.0 {tablet} active Amoxicillin-Pot Cla vulanate 875-125 MG eCW1 ([facility]) Fluconazole 150 MG Oral Tablet Fluconazole 150 MG 01/19/2021 12:00: 00 AM EDT 1.0 {tablet} active Fluconazole 150 MG eCW1 ([facility]) Fluconazole 150 MG Oral Tablet Fluconazole 150 MG 01/19/2021 12:00: 00 AM EDT 1.0 {tablet} active Fluconazole 150 MG eCW1 ([facility]) Fluconazole 150 MG Oral Tablet Fluconazole 150 MG 01/19/2021 12:00: 00 AM EDT 1.0 {tablet} active Fluconazole 150 MG eCW1 ([facility]) Fluconazole 150 MG Oral Tablet Fluconazole 150 MG 01/19/2021 12:00: 00 AM EDT 1.0 {tablet} active Fluconazole 150 MG eCW1 ([facility]) Amoxicillin 875 MG / Clavulanate 125 MG Oral Tablet Amoxicillin-Pot Clavulanate 875-125 MG Amoxicillin-Pot Clavulanate 875-125 MG 01/19/2021 12:00:00 AM ED T 1.0 {tablet} active Amoxicillin-Pot Cla vulanate 875-125 MG eCW1 ([facility]) Fluconazole 150 MG Oral Tablet Fluconazole 150 MG 01/19/2021 12:00: 00 AM EDT 1.0 {tablet} active Fluconazole 150 MG eCW1 ([facility]) Fluconazole 150 MG Oral Tablet Fluconazole 150 MG 01/19/2021 12:00: 00 AM EDT 1.0 {tablet} active Fluconazole 150 MG eCW1 ([facility]) Fluconazole 150 MG Oral Tablet Fluconazole 150 MG 01/19/2021 12:00: 00 AM EDT 1.0 {tablet} active Fluconazole 150 MG eCW1 ([facility]) Amoxicillin 875 MG / Clavulanate 125 MG Oral Tablet Amoxicillin-Pot Clavulanate 875-125 MG Amoxicillin-Pot Clavulanate 875-125 MG 01/19/2021 12:00:00 AM ED T 1.0 {tablet} active Amoxicillin-Pot Cla vulanate 875-125 MG eCW1 ([facility]) Amoxicillin 875 MG / Clavulanate 125 MG Oral Tablet Amoxicillin-Pot Clavulanate 875-125 MG Amoxicillin-Pot Clavulanate 875-125 MG 01/19/2021 12:00:00 AM ED T 1.0 {tablet} active Amoxicillin-Pot Cla vulanate 875-125 MG eCW1 ([facility]) Amoxicillin 875 MG / Clavulanate 125 MG Oral Tablet Amoxicillin-Pot Clavulanate 875-125 MG Amoxicillin-Pot Clavulanate 875-125 MG 01/19/2021 12:00:00 AM ED T 1.0 {tablet} active Amoxicillin-Pot Cla vulanate 875-125 MG eCW1 ([facility]) Fluconazole 150 MG Oral Tablet Fluconazole 150 MG 01/19/2021 12:00: 00 AM EDT 1.0 {tablet} active Fluconazole 150 MG eCW1 ([facility]) Amoxicillin 875 MG / Clavulanate 125 MG Oral Tablet Amoxicillin-Pot Clavulanate 875-125 MG Amoxicillin-Pot Clavulanate 875-125 MG 01/19/2021 12:00:00 AM ED T 1.0 {tablet} active Amoxicillin-Pot Cla vulanate 875-125 MG eCW1 ([facility]) Vitamin D3 50 MCG (1999 UT) Vitamin D3 50 MCG (1999 UT) 10/2020 12:00:00 AM EDT 1.0 {tablet} active Vitamin D3 50 MCG (1999 UT) eCW1 ([facility]) Vitamin D3 50 MCG (1999 UT) Vitamin D3 50 MCG (1999 UT) 10/2020 12:00:00 AM EDT 1.0 {tablet} active Vitamin D3 50 MCG (1999 UT) eCW1 ([facility]) Cholecalciferol 2000 UNT Oral Tablet Vitamin D3 50 MCG (1999 UT) Vitamin D3 50 MCG (1999 UT) 01/02/2021 12:00:00 AM EDT 1.0 {tablet} active Vitamin D3 50 MCG (1999 UT) eCW1 ([facility]) Vitamin D3 50 MCG (1999 UT) Vitamin D3 50 MCG (1999 UT) 10/2020 12:00:00 AM EDT 1.0 {tablet} active Vitamin D3 50 MCG (1999 UT) eCW1 ([facility]) Cholecalciferol 2000 UNT Oral Tablet Vitamin D3 50 MCG (1999 UT) Vitamin D3 50 MCG (1999 UT) 01/02/2021 12:00:00 AM EDT 1.0 {tablet} active Vitamin D3 50 MCG (1999 UT) eCW1 ([facility]) Vitamin D3 50 MCG (1999 UT) Vitamin D3 50 MCG (1999 UT) 10/2020 12:00:00 AM EDT 1.0 {tablet} active Vitamin D3 50 MCG (1999 UT) eCW1 ([facility]) Cholecalciferol 2000 UNT Oral Tablet Vitamin D3 50 MCG (1999 UT) Vitamin D3 50 MCG (1999 UT) 01/02/2021 12:00:00 AM EDT 1.0 {tablet} active Vitamin D3 50 MCG (1999 UT) eCW1 ([facility]) Vitamin D3 50 MCG (1999 UT) Vitamin D3 50 MCG (1999 UT) 10/2020 12:00:00 AM EDT 1.0 {tablet} active Vitamin D3 50 MCG (1999 UT) eCW1 ([facility]) Cholecalciferol 2000 UNT Oral Tablet Vitamin D3 50 MCG (1999 UT) Vitamin D3 50 MCG (1999 UT) 01/02/2021 12:00:00 AM EDT 1.0 {tablet} active Vitamin D3 50 MCG (1999 UT) eCW1 ([facility]) Vitamin D3 50 MCG (1999 UT) Vitamin D3 50 MCG (1999 UT) 10/2020 12:00:00 AM EDT 1.0 {tablet} active Vitamin D3 50 MCG (1999 UT) eCW1 ([facility]) Cholecalciferol 2000 UNT Oral Tablet Vitamin D3 50 MCG (1999 UT) Vitamin D3 50 MCG (1999 UT) 01/02/2021 12:00:00 AM EDT 1.0 {tablet} active Vitamin D3 50 MCG (1999 UT) eCW1 ([facility]) Amphetamine aspartate 2.5 MG / Amphetami ne Sulfate 2.5 MG / Dextroamphetamine saccharate 2.5 MG / Dextroamphetamine Sulfate 2.5 MG Oral Tablet [Adderall] Adderall 10 MG Adderall 10 MG 12/30/2020 12:00:00 AM EDT 2.0 {tablets} active Adderall 10 MG eCW1 ([facility]) Amphetamine aspartate 2.5 MG / Amphetami ne Sulfate 2.5 MG / Dextroamphetamine saccharate 2.5 MG / Dextroamphetamine Sulfate 2.5 MG Oral Tablet [Adderall] Adderall 10 MG Adderall 10 MG 12/30/2020 12:00:00 AM EDT 2.0 {tablets} active Adderall 10 MG eCW1 ([facility]) Amphetamine aspartate 2.5 MG / Amphetami ne Sulfate 2.5 MG / Dextroamphetamine saccharate 2.5 MG / Dextroamphetamine Sulfate 2.5 MG Oral Tablet [Adderall] Adderall 10 MG Adderall 10 MG 12/30/2020 12:00:00 AM EDT 2.0 {tablets} active Adderall 10 MG eCW1 ([facility]) Amphetamine aspartate 2.5 MG / Amphetami ne Sulfate 2.5 MG / Dextroamphetamine saccharate 2.5 MG / Dextroamphetamine Sulfate 2.5 MG Oral Tablet [Adderall] Adderall 10 MG Adderall 10 MG 11/28/2020 12:00:00 AM EDT 2.0 {tablets} active eCW1 ([facility]) Amphetamine aspartate 2.5 MG / Amphetami ne Sulfate 2.5 MG / Dextroamphetamine saccharate 2.5 MG / Dextroamphetamine Sulfate 2.5 MG Oral Tablet [Adderall] Adderall 10 MG Adderall 10 MG 11/28/2020 12:00:00 AM EDT 2.0 {tablets} active Adderall 10 MG eCW1 ([facility]) Amphetamine aspartate 2.5 MG / Amphetami ne Sulfate 2.5 MG / Dextroamphetamine saccharate 2.5 MG / Dextroamphetamine Sulfate 2.5 MG Oral Tablet [Adderall] Adderall 10 MG Adderall 10 MG 11/28/2020 12:00:00 AM EDT 2.0 {tablets} active Adderall 10 MG eCW1 ([facility]) Famotidine 20 MG Oral Tablet Famotidine 20 MG 11/26/2020 12:00:00 A M EDT 1.0 {tablet} active eCW1 ([facility]) Famotidine 20 MG Oral Tablet Famotidine 20 MG 11/26/2020 12:00:00 A M EDT 1.0 {tablet} active Famotidine 20 MG eCW1 ( [facility]) Famotidine 20 MG Oral Tablet Famotidine 20 MG 11/26/2020 12:00:00 A M EDT 1.0 {tablet} active Famotidine 20 MG eCW1 ( [facility]) Famotidine 20 MG Oral Tablet Famotidine 20 MG 11/26/2020 12:00:00 A M EDT 1.0 {tablet} active Famotidine 20 MG eCW1 ( [facility]) 3 mg 10/29/2020 12:00:00 AM EDT tablet 8 TAKE EIGHT TABLETS BY MOUTH ONE TIME AND REPEAT DOSE IN ONE WEEK TAKE EIGHT TABLETS BY MOUTH ONE TIME AND REPEAT DOSE IN ONE WEEK SOLD: 11/05/2020 [facility] 3 mg 10/29/2020 12:00:00 AM EDT tablet 8 TAKE EIGHT TABLETS BY MOUTH ONE TIME AND REPEAT DOSE IN ONE WEEK TAKE EIGHT TABLETS BY MOUTH ONE TIME AND REPEAT DOSE IN ONE WEEK SOLD: 10/29/2020 [facility] Amphetamine aspartate 2.5 MG / Amphetami ne Sulfate 2.5 MG / Dextroamphetamine saccharate 2.5 MG / Dextroamphetamine Sulfate 2.5 MG Oral Tablet [Adderall] Adderall 10 MG Adderall 10 MG 10/24/2020 12:00:00 AM EDT 2.0 {tablets} active Adderall 10 MG eCW1 ([facility]) Amphetamine aspartate 2.5 MG / Amphetami ne Sulfate 2.5 MG / Dextroamphetamine saccharate 2.5 MG / Dextroamphetamine Sulfate 2.5 MG Oral Tablet [Adderall] Adderall 10 MG Adderall 10 MG 10/24/2020 12:00:00 AM EDT 2.0 {tablets} active Adderall 10 MG eCW1 ([facility]) Amphetamine aspartate 2.5 MG / Amphetami ne Sulfate 2.5 MG / Dextroamphetamine saccharate 2.5 MG / Dextroamphetamine Sulfate 2.5 MG Oral Tablet [Adderall] Adderall 10 MG Adderall 10 MG 09/23/2020 12:00:00 AM EST 2.0 {tablets} active Adderall 10 MG eCW1 ([facility]) Amphetamine aspartate 2.5 MG / Amphetami ne Sulfate 2.5 MG / Dextroamphetamine saccharate 2.5 MG / Dextroamphetamine Sulfate 2.5 MG Oral Tablet [Adderall] Adderall 10 MG Adderall 10 MG 09/23/2020 12:00:00 AM EST 2.0 {tablets} active Adderall 10 MG eCW1 ([facility]) Amphetamine aspartate 2.5 MG / Amphetami ne Sulfate 2.5 MG / Dextroamphetamine saccharate 2.5 MG / Dextroamphetamine Sulfate 2.5 MG Oral Tablet [Adderall] Adderall 10 MG Adderall 10 MG 08/28/2020 12:00:00 AM EST 2.0 {tablets} active Adderall 10 MG eCW1 ([facility]) Amphetamine aspartate 2.5 MG / Amphetami ne Sulfate 2.5 MG / Dextroamphetamine saccharate 2.5 MG / Dextroamphetamine Sulfate 2.5 MG Oral Tablet [Adderall] Adderall 10 MG Adderall 10 MG 07/29/2020 12:00:00 AM EST 2.0 {tablets} active Adderall 10 MG eCW1 ([facility]) 600 mg 07/22/2020 12:00:00 AM EST tablet 18 TAKE ONE TABLET BY MOUTH TWICE A DAY TAKE ONE TABLET BY MOUTH TWICE A DAY SOLD: 07/22/2020 [facility] 500 mg 07/22/2020 12:00:00 AM EST capsule 21 TAKE ONE CAPSULE BY MOUTH THREE TIMES A DAY TAKE ONE CAPSULE BY MOUTH THREE TIMES A DAY SOLD: 07/22/2020 [facility] Amphetamine aspartate 2.5 MG / Amphetami ne Sulfate 2.5 MG / Dextroamphetamine saccharate 2.5 MG / Dextroamphetamine Sulfate 2.5 MG Oral Tablet [Adderall] Adderall 10 MG Adderall 10 MG 06/23/2020 12:00:00 AM EST 2.0 {tablets} active Adderall 10 MG eCW1 ([facility]) 10 mg 06/23/2020 12:00:00 AM EST tablet 60 TAKE TWO TABLETS BY MOUTH EVERY DAY MAXIMUM DAILY DOSE = 2 TABLETS TAKE TWO TABLETS BY MOUTH EVERY DAY MAXI MUM DAILY DOSE = 2 TABLETS SOLD: 06/24/2020 [facility] Amphetamine aspartate 2.5 MG / Amphetami ne Sulfate 2.5 MG / Dextroamphetamine saccharate 2.5 MG / Dextroamphetamine Sulfate 2.5 MG Oral Tablet [Adderall] Adderall 10 MG Adderall 10 MG 05/21/2020 12:00:00 AM EDT 2.0 {tablets} active Adderall 10 MG eCW1 ([facility]) Amphetamine aspartate 2.5 MG / Amphetami ne Sulfate 2.5 MG / Dextroamphetamine saccharate 2.5 MG / Dextroamphetamine Sulfate 2.5 MG Oral Tablet [Adderall] Adderall 10 MG Adderall 10 MG 05/21/2020 12:00:00 AM EDT 2.0 {tablets} active Adderall 10 MG eCW1 ([facility]) Amphetamine aspartate 2.5 MG / Amphetami ne Sulfate 2.5 MG / Dextroamphetamine saccharate 2.5 MG / Dextroamphetamine Sulfate 2.5 MG Oral Tablet [Adderall] Adderall 10 MG Adderall 10 MG 05/21/2020 12:00:00 AM EDT 2.0 {tablets} active Adderall 10 MG eCW1 ([facility]) Amphetamine aspartate 2.5 MG / Amphetami ne Sulfate 2.5 MG / Dextroamphetamine saccharate 2.5 MG / Dextroamphetamine Sulfate 2.5 MG Oral Tablet [Adderall] Adderall 10 MG Adderall 10 MG 05/21/2020 12:00:00 AM EDT 2.0 {tablets} active Adderall 10 MG eCW1 ([facility]) Amphetamine aspartate 2.5 MG / Amphetami ne Sulfate 2.5 MG / Dextroamphetamine saccharate 2.5 MG / Dextroamphetamine Sulfate 2.5 MG Oral Tablet [Adderall] Adderall 10 MG Adderall 10 MG 05/21/2020 12:00:00 AM EDT 2.0 {tablets} active Adderall 10 MG eCW1 ([facility]) Insurance Providers Payer name Policy type / Coverage type Policy ID Covered constitution party ID Covered constitution party's relationship to pringle Policy P[place]le Plan Information [employer] [id number] SP [id number] [facility] Medigap Part B [id number] Self A [id number] [employer] [facility] Medigap Part B [id number] Self V [id number] Medicaid [place] Med[place] Part [place] [id number]. 20368.0 Self [id number] [employer] MCD[employer]MO [id number] SP [id number] [employer] MCDHMO [id number] SP [id number] [employer] MCDHMO [id number] SP [id number] ANSI-Commercial [id number] ANSI-Medicaid [id number] ANSI-Medicaid [id number] ANSI-Medicaid [id number] ANSI-Commercial [id number]-6745-24se-[id number] [id number]-1653-31ar-[id number] ANSI-Medicaid [id number] ANSI-Medicaid [id number] ANSI-Commercial zxakht0k-657v-731l-53in-[id number] kenrzr5c-869p-416l-48zv-[id number] ANSI-Medicaid [id number] ANSI-Medicaid [id number] ANSI-Medicaid [id number] ANSI-Medicaid [id number]-w06z-[id number] ANSI-Commercial v0a98670-0136-3973-ov83-2147341s4iv3 s1o11918-2915-4113-sy50-9171131f4up1 ANSI-Medicaid [id number] ANSI-Commercial c1lpnl9h-8x20-2m61-9b43-279l235o3r09 n0wcbo8s-8q31-2h08-9s61-970o941w6z29 ANSI-Medicaid [id number] ANSI-Medicaid [id number] ANSI-Medicaid [id number]-[id number] ANSI-Commercial oew3o413-j877-26fi-e727-9o5l3225819j djv3d693-s040-29yf-s115-6d0e0182353c ANSI-Medicaid [id number] ANSI-Medicaid [id number] ANSI-Medicaid [id number] ANSI-Medicaid [id number]-551u-[id number] ANSI-Commercial yp192131-ym42-09qn-d7xk-p016396up88g kf456546-xx94-66rr-s1ag-x826833ro59p ANSI-Medicaid [id number] ANSI-Commercial xz5p8s32-39w7-3330-i150-q57gylbxh2l6 my5c2f14-92b3-5280-l505-q82bcrsxr7a0 ANSI-Medicaid [id number]-s789-2j8v-09cz-[id number] ANSI-Medicaid [id number] ANSI-Medicaid [id number]-1hvg-00wf-[id number] ANSI-Commercial 0b70c40v-2bwi-740f-sm7a-59v424rd61id 7w84j92o-5pen-383g-ex9r-61c129ks40mz ANSI-Medicaid [id number]-[id number] ANSI-Medicaid [id number]-hy0z-[id number] ANSI-Medicaid [id number]-wi95-52gg-36y2-5hau79y422sw ANSI-Medicaid [id number]-[id number] ANSI-Medicaid [id number]-sgt8-9s1e-[id number] ANSI-Commercial f39ypj70-stp8-9e99-n44d-z84f176v4dx0 d79cyx50-lvy3-5m32-c79x-a77s853f8cd5 ANSI-Medicaid [id number]-683n-[id number] ANSI-Medicaid [id number]-[id number] ANSI-Commercial n72c64w2-73s3-73ka-0p47-qa104d4g77a9 v72a38c1-27z7-61zb-2v02-ij771p2r36y4 ANSI-Medicaid [id number] ANSI-Medicaid [id number] ANSI-Commercial 6mtf5ik4-c8r5-3469-5354-734f07mu4e8l 2iqr9kr5-w9x4-7055-0164-963e85pf5f2u ANSI-Medicaid [id number]-[id number] ANSI-Medicaid [id number]-[id number]-e5hl-3bf8-[id number] ANSI-Medicaid [id number]-vnpg-7gcj-[id number] ANSI-Commercial 3a8v7214-64lt-79e8-y158-n1p9faqy0590 8e6a9398-67uz-69a1-d810-n6l0rqsb6945 ANSI-Medicaid [id number]-[id number] ANSI-Medicaid [id number]-6yh3-593u-[id number] ANSI-Medicaid [id number] [employer] Medigap Part B [id number] [id number]3817.0 Self A [id number] [facility] Commercial [id number] 2.16.840.1.912513.3.22 7.99.991.85189.0 Self [id number] ANSI-Commercial 9v9412f1-17m3-8042-c1c7-s90ch7krtl3l 4i3508p0-22j7-8043-f1e6-h71fs5drvq0w ANSI-Medicaid [id number] ANSI-Medicaid [id number] ANSI-Medicaid [id number] [id number]-b3sz-17m12hy6l8ww ANSI-Medicaid [id number] ANSI-Commercial 29x2x65t-d1t6-387f-5905-14207xz7m7xr 08p7c21d-e8u5-750o-4945-83006tv2o6ln ANSI-Medicaid [id number]-k3mp-[id number] 5itwy3d2-25w5-0b26-y7py-g39g3li4v3h5 ANSI-Medicaid [id number] 1am35l7x-mv63-6m11-c373-75r5b02w32z0 ANSI-Medicaid [id number]-s272-1e8h-b5qm-u4522u7zq186 ANSI-Medicaid [id number] 61u7acxv-tuu8-64wl-93y6-3r6622fvyv68 ANSI-Commercial h6339r94-3i37-57vs-0958-09ga242tbg25 t1319v14-6o45-59sc-4564-23sl889msm65 ANSI-Medicaid [id number] 6774sarh-v2om-3149f2zs-[id number] [facility] O [id number] S [id number] ANSI-Medicaid [id number] ANSI-Medicaid [id number] ANSI-Medicaid [id number]-6e2e-[id number] ANSI-Commercial k1882l44-hxw3-0ad7-gb1j-5h72784zsxp1 z0326e42-aeq8-5xz4-yi3g-4b75724wxfs0 ANSI-Medicaid [id number]-[id number] ANSI-Medicaid [id number] ANSI-Medicaid [id number] ANSI-Commercial g548xnm0-kaj2-2j8u-k6l4-nu39421x2ony l941plg1-tpu4-1b7k-b9r1-wz78906h8xhp MEDICAID [id number] SP [id number] ANSI-Medicaid [id number] ANSI-Medicaid [id number]-8df0-5151-90p5-[id number] ANSI-Medicaid [id number]-[id number] ANSI-Commercial 1x746xo9-e140-14r7-461o-1u4jl4z18d9c 0m144fw1-m326-83u6-210n-2s5mt9c82j2x Medicaid [facility] Part B [id number] 2.0.1.125761.3.227.99.8646 .5604.0 Self [id number] Health Maintenance Organization (HMO) [id number] 2.0.1.914227.3.227.99.8646.5604.0 Self 0 [id number] [facility] Health Maintenance Organization (HMO) [id number].8646.5604.0 Self 1 [id number] ANSI-Medicaid [id number] ANSI-Medicaid [id number] ANSI-Medicaid [id number]-[id number] ANSI-Commercial 44458gn1-io50-1i01-xqr0-6u7s29t39zf1 53605my2-ox11-9b48-ywa5-6j5j41y76bw9 MEDICAID M [id number] S [id number] Medicaid [facility] Part B [id number] 2.16.840.1.237197.3.227.99.8646 .5604.0 Self [id number] [facility] Health Maintenance Organization (HMO) 0AU [id number] 2.16.840.1.659113.3.227.99.8646.5604.0 Self 0 [id number] ANSI-Medicaid [id number]-583b-4v94-8g9s95qs4v8b ANSI-Medicaid [id number]-7vf6-4l24-gy13-p2467m10j2t0 ANSI-Medicaid [id number] ANSI-Commercial 17u72nl3-2c10-198n-t7x6-c1h67091ey91 40c20gc0-8l19-657s-r0h1-y2z57875ff28 ANSI-Commercial f2h1ceq0-6440-23c2-p580-5ev26w93s08z x8t6pse9-3811-92j9-o448-9by15f03r66l ANSI-Medicaid [id number] ANSI-Medicaid [id number]-[id number] ANSI-Medicaid [id number] ANSI-Commercial 75j0q0vd-3oc9-8728-h74w-24848263x716 91o9l0bo-9id4-4477-m91z-54591998t138 ANSI-Medicaid [id number] ANSI-Medicaid [id number] ANSI-Medicaid [id number]-[id number] ANSI-Medicaid [id number] 3ueg9v2z-x6j9-3kdx-gp54-06pia8w86h09 ANSI-Commercial t2t68210-3za4-5898-8913-598x6581f70u r1p83240-9jc3-6663-0109-616d7855q87z ANSI-Medicaid [id number]-[id number]-68u7-[id number] ANSI-Medicaid [id number]-[id number] ANSI-Medicaid [id number] 3i9c3cfy-1hi6-3g1s-58j1-[id number] ANSI-Commercial 279g73nk-1809-7724-6046-r8pen8n9u625 141y01mq-2253-6977-2551-i8apq9a7c077 ANSI-Medicaid [id number] 9f14j0jv-k12q-9a07-28q1-z96fm2f50n4c ANSI-Medicaid [id number]-[id number] ANSI-Medicaid [id number]-31vr-[id number] ANSI-Medicaid [id number]-4y9w-d6m3-313n3se59y9z ANSI-Medicaid [id number] 9t18s38g-3137-93x8-b912-6874235uhm9p ANSI-Commercial 990415bm-tj33-70ih-1370-y74g38cwp6gr 696820nx-qv48-27uq-8838-k98t98suf3bv Medicaid [place] Med[place] Part [place] [id number] 2.16.840.1.233629.3.227.99.8646 .5604.0 Self [id number] [facility] Health Maintenance Organization (HMO) 0AU [id number] 2.16.840.1.093319.3.227.99.8646.5604.0 Self 0 [id number] [facility] Health Maintenance Organization (HMO) [id number] 2.16.840.1.116065.3.227.99.8646.5604.0 Self 1 [id number] ANSI-Medicaid [id number] ANS-Medicaid [id number]-50do-[id number] ANS-Medicaid [id number] ANSI-Commercial 144giv68-qj8g-1607-7in5-a8n1uzh8k8i5 672cjo49-dz4u-6427-5jy2-j5h9vsa0o3h7 ANSI-Commercial 4b9n264n-65s3-16v7-tdck-ecp2s231y2z4 9u7p439c-30x6-93u3-edne-wrt2y605f7q5 ANSI-Medicaid [id number]-[id number] ANSI-Medicaid [id number] ANSI-Medicaid [id number] ANSI-Medicaid [id number] ANSI-Commercial 3zhjm93m-h7dr-7wyf-8ci3-09qja2c45u20 6cfem28s-k1zf-4ukg-2mb9-77hck8g61f23 ANSI-Medicaid [id number] ANSI-Medicaid [id number] b722mb5r-gw3r-7nl0-08jz-[id number] ANSI-Medicaid [id number]-[id number] ANSI-Medicaid [id number]-[id number] ANSI-Medicaid [id number] ANSI-Commercial [id number] Medicaid [facility] Part B [id number] Self [id number] [facility] [employer] Maintenance [employer] (HMO) [id number] Self [id number] [facility]) P [id number] S [id number] [facility] [id number] SP [id number] HMO BLUE [id number] SP [id number] MEDICAID [id number] SP [id number] MEDICAID [id number] SP [id number] HMO BLUE [id number] SP [id number] HMO BLUE [id number] SP [id number] [employer] [id number] SP [id number] [employer] [employer] [id number] SP [id number] [place] [id number] SP [id number] P MEDICAID [id number] SP [id number] [facility]-Medicaid [id number] [facility]-Medicaid [id number] [facility]-Medicaid [id number] Problems, Conditions, and Diagnoses No Information Surgeries/Procedures Procedure Description Date Indications Data Source(s) Spirometry 05/13/2021 12:00:00 AM EDT [facility] ([facility]) DEMO&/EVAL OF PT UTILIZ AERSL GEN/NEB/INHLR/IPPB 05/13 12:00:00 AM EDT [facility] ([facility]) OFFICE OUTPATIENT VISIT 25 MINUTES 05/13/2021 12:00:00 AM EDT [facility] ([facility]) Bronchospasm Evaluation 05/12/2021 12:00:00 AM EDT [facility] ([facility]) Plethysmography Determination Lung Volumes & Per Airway Resi st 05/12/2021 12:00:00 AM EDT [facility] DIFFUSING CAPACITY 05/12/2021 12:00:00 AM EDT [facility] ([facility]) Spirometry 04/21/2021 12:00:00 AM EDT [facility] ([facility]) OFFICE OUTPATIENT VISIT 25 MINUTES 04/21/2021 12:00:00 AM EDT [facility] ([facility]) OFFICE OUTPATIENT NEW 30 MINUTES 04/14/2021 12:00:00 A M EDT [facility] ([facility]) OFFICE OUTPATIENT NEW 45 MINUTES 04/14/2021 12:00:00 A M EDT [facility] ([facility]) Results ID Date Data Source [id number] 05/30/2021 09:55:00 AM EDT [facility] Name Value Range Interpretation Code Description Data Margarita rce(s) Supporting Document(s) SARS-CoV-2 (COVID-19) RNA [Presence] in Respiratory specimen by RENE with probe detection Not Detected [facility] This lab was ordered by [facility] and reported by [employer]. ID Date Data Source [id number] 05/20/2021 12:00:00 AM EDT [facility] Name Value Range Interpretation Code Description Data Margarita rce(s) Supporting Document(s) SARS-COV-2 Negative [facility] This lab was ordered by [facility] and re ported by [facility]. ID Date Data Source [id number] 05/13/2021 11:01:00 AM EDT [facility] ([facility] [place]) Name Value Range Interpretation Code Description Data Margarita rce(s) Supporting Document(s) FVC-Pre 3.35 L [facility] ([facility]) FVC-Pred 3.36 L [facility] ([facility]) PDFReport Laboratory test result [facility] ([facility]) FVC-%Pred-Pre 99 L [facility] ([facility]) FVC-LLN 2.66 L [facility] ([facility]) Fev1-Pred 2.61 L [facility] ([facility]) Fev1-%Pred-Pre 84 L [facility] ([facility]) Fev1-Pre 2.19 L [facility] ([facility]) Fev1-LLN 2.02 L [facility] ([facility]) Fev6-Pred 3.25 L [facility] ([facility], ) Fev6-LLN 2.57 L [facility] ([facility]) Fev6-Pre 3.27 L [facility] ([facility]) Fev6-%Pred-Pre 100 L [facility] ([facility], ) Zlv6mzb-Tlz 65 % [facility] ([facility]) Ciu1tws-Yglh 78 % [facility] ([facility]) Tnk1kjt-%Pred-Pre 83 % [facility] ([facility]) Bxu1wpr-VSP 69 % [facility] ([facility]) Ivi0nhn-Ysjz 97 % [facility] ([facility]) Stx9izc-%Pred-Pre 100 % [facility] ([facility]) Fns3vhh-Kqi 98 % [facility] ([facility]) FEFMax-%Pred-Pre 52 L/E/sec [facility] ([facility]) FEFMax-Pre 3.37 L/E/sec [facility] ([facility]) FEFMax-Pred 6.40 L/E/sec [facility] ([facility]) [id number]-Xnml 2.43 L/E/sec [facility] ([facility]) Olb4653-Ukw 1.46 L/E/sec [facility] ([facility]) FEFMax-LLN 4.68 L/E/sec [facility] ([facility]) Phb1528-%Pred-Pre 60 L/E/sec [facility] ([facility]) ExpTime-Pre 8.58 sec [facility] ([facility]) Yxw1589-EHS 1.19 L/E/sec [facility] ([facility]) Quq4ciw0-Mzl 67 % [facility] ([facility]) Kta0yli8-Owjn 81 % [facility] ([facility]) Tlo7tjd0-%Pred-Pre 82 % [facility] ([facility] ) Poi3zwo3-SQS 72 % [facility] ([facility], ) Procedure Social History Code Duration Value Status Description Data Source(s ) Smoking 01/19/2021 12:00:00 AM EDT Current Smoker completed Curre nt Smoker [facility]CW1 ([facility]) Smoking 01/19/2021 12:00:00 AM EDT Current Smoker completed Curre nt Smoker eCW1 ([facility]) Smoking 01/19/2021 12:00:00 AM EDT Current Smoker completed Curre nt Smoker eCW1 ([facility]) Smoking 01/19/2021 12:00:00 AM EDT Current Smoker completed Curre nt Smoker eCW1 ([facility]) Smoking 01/19/2021 12:00:00 AM EDT Current Smoker completed Curre nt Smoker eCW1 ([facility]) Smoking 01/19/2021 12:00:00 AM EDT Current Smoker completed Curre nt Smoker eCW1 ([facility]) Smoking 01/19/2021 12:00:00 AM EDT Current Smoker completed Curre nt Smoker eCW1 ([facility]) Smoking 01/19/2021 12:00:00 AM EDT Current Smoker completed Curre nt Smoker eCW1 ([facility]) Smoking 01/19/2021 12:00:00 AM EDT Current Smoker completed Curre nt Smoker eCW1 ([facility]) Smoking 01/19/2021 12:00:00 AM EDT Current Smoker completed Curre nt Smoker eCW1 ([facility]) Smoking 12/15/2020 12:00:00 AM EDT Current Smoker completed Curre nt Smoker eCW1 ([facility]) Smoking 12/15/2020 12:00:00 AM EDT Current Smoker completed Curre nt Smoker eCW1 ([facility]) Smoking 12/15/2020 12:00:00 AM EDT Current Smoker completed Curre nt Smoker eCW1 ([facility]) Smoking 12/15/2020 12:00:00 AM EDT Current Smoker completed Curre nt Smoker eCW1 ([facility]) Smoking 11/26/2020 12:00:00 AM EDT Current Smoker completed Curre nt Smoker eCW1 ([facility]) Smoking 11/26/2020 12:00:00 AM EDT Current Smoker completed Curre nt Smoker eCW1 ([facility]) Vital Signs ID Date Data Source UNK Name Value Range Interpretation Code Description Data Source(s) Systolic blood pressure 136 mm[Hg] 136 mm[Hg] [facility] Diastolic blood pressure 84 mm[Hg] 84 mm[Hg] [facility] ([facility]) Heart rate 64 /min 64 /min [facility] ([facility]) Oxygen saturation in Arterial blood by Pulse oximetry 96 % 96 % [facility] ([facility]) Body height 64 [in_i] 64 [in_i] [facility] ([facility] [place]) 5'4" Body weight 152.00 [lb_av] 152.00 [lb_av] [facility] ([facility]) Body mass index (BMI) [Ratio] 26.1 kg/m2 26.1 k g/m2 [facility] ([facility]) [place] body weight 120 [lb_av] 120 [lb_av] [facility] ([facility]) Body weight 68.947 kg 68.947 kg [facility] ([facility] [place]) Body surface area Derived from formula 1.74 m2 1.74 m2 [facility] ([facility]) Body mass index (BMI) [Ratio] 25.7 kg/m2 25.7 k g/m2 [facility] ([facility]) Body weight 68.040 kg 68.040 kg [facility] ([facility] [place]) Body surface area Derived from formula 1.73 m2 1.73 m2 [facility] ([facility]) Oxygen saturation in Arterial blood by Pulse oximetry 100 % 100 % [facility] ([facility]) Room Air Body height 64 [in_i] 64 [in_i] [facility] ([facility] [place]) 5'4" Body weight 150.00 [lb_av] 150.00 [lb_av] [facility] ([facility], ) Diastolic blood pressure 68 mm[Hg] 68 mm[Hg] [facility] ([facility]) [place] body weight 120 [lb_av] 120 [lb_av] [facility] [facility] Systolic blood pressure 108 mm[Hg] 108 mm[Hg] M EDENT ([facility]) Heart rate 66 /min 66 /min MEDENT ([facility]) Body temperature 96.7 [degF] 96.7 [degF] MEDENT ([facility]) Body weight [lb_av] eCW1 ([facility]) Body height 64 [in_i] 64 [in_i] eCW1 ([facility]) Body mass index (BMI) [Ratio] 25.57 kg/m2 25.57 kg/m2 W1 ([facility]) Heart rate 81 /min 81 /min eCW1 ([facility]) Respiratory rate 18 /min 18 /min eCW1 ([facility]) Body temperature 98.5 [degF] 98.5 [degF] eCW1 ( [facility]) Systolic blood pressure 147 mm[Hg] 147 mm[Hg] e CW1 ([facility]) Diastolic blood pressure 75 mm[Hg] 75 mm[Hg] eCW1 ([facility]) Body weight [lb_av] eCW1 ([facility]) Body height 64 [in_i] 64 [in_i] eCW1 ([facility]) Body mass index (BMI) [Ratio] 25.57 kg/m2 25.57 kg/m2 W1 ([facility]) Heart rate 73 /min 73 /min eCW1 ([facility]) Respiratory rate 18 /min 18 /min eCW1 ([facility]) Body temperature 98.4 [degF] 98.4 [degF] eCW1 ( [facility]) Systolic blood pressure 133 mm[Hg] 133 mm[Hg] e CW1 ([facility]) Diastolic blood pressure 84 mm[Hg] 84 mm[Hg] eCW1 ([facility]) Body weight [lb_av] eCW1 ([facility]) Body height 64 [in_i] 64 [in_i] eCW1 ([facility]) Body mass index (BMI) [Ratio] 25.57 kg/m2 25.57 kg/m2 eCW1 ([facility]) Heart rate 67 /min 67 /min eCW1 ([facility]) Respiratory rate 18 /min 18 /min eCW1 ([facility]) Body temperature 97.3 [degF] 97.3 [degF] eCW1 ( [facility]) Systolic blood pressure 131 mm[Hg] 131 mm[Hg] e CW1 ([facility]) Diastolic blood pressure 88 mm[Hg] 88 mm[Hg] eCW1 ([facility]) Patient Treatment Plan of Care Planned Activity Planned Date Details Description Data Source (s) Amphetamine aspartate 2.5 MG / Amphetami ne Sulfate 2.5 MG / Dextroamphetamine saccharate 2.5 MG / Dextroamphetamine Sulfate 2.5 MG Oral Tablet [Adderall] 05/06/2021 12:00:00 AM EDT eCW1 ([facility]) Amphetamine aspartate 2.5 MG / Amphetami ne Sulfate 2.5 MG / Dextroamphetamine saccharate 2.5 MG / Dextroamphetamine Sulfate 2.5 MG Oral Tablet [Adderall] 05/06/2021 12:00:00 AM EDT eCW1 ([facility]) Amphetamine aspartate 2.5 MG / Amphetami ne Sulfate 2.5 MG / Dextroamphetamine saccharate 2.5 MG / Dextroamphetamine Sulfate 2.5 MG Oral Tablet [Adderall] 04/08/2021 12:00:00 AM EDT eCW1 ([facility]) Amphetamine aspartate 2.5 MG / Amphetami ne Sulfate 2.5 MG / Dextroamphetamine saccharate 2.5 MG / Dextroamphetamine Sulfate 2.5 MG Oral Tablet [Adderall] 03/05/2021 12:00:00 AM EDT eCW1 ([facility]) Amphetamine aspartate 2.5 MG / Amphetami ne Sulfate 2.5 MG / Dextroamphetamine saccharate 2.5 MG / Dextroamphetamine Sulfate 2.5 MG Oral Tablet [Adderall] 03/05/2021 12:00:00 AM EDT eCW1 ([facility]) Amphetamine aspartate 2.5 MG / Amphetami ne Sulfate 2.5 MG / Dextroamphetamine saccharate 2.5 MG / Dextroamphetamine Sulfate 2.5 MG Oral Tablet [Adderall] 03/05/2021 12:00:00 AM EDT eCW1 ([facility]) Amphetamine aspartate 2.5 MG / Amphetami ne Sulfate 2.5 MG / Dextroamphetamine saccharate 2.5 MG / Dextroamphetamine Sulfate 2.5 MG Oral Tablet [Adderall] 02/03/2021 12:00:00 AM EDT eCW1 ([facility]) Amphetamine aspartate 2.5 MG / Amphetami ne Sulfate 2.5 MG / Dextroamphetamine saccharate 2.5 MG / Dextroamphetamine Sulfate 2.5 MG Oral Tablet [Adderall] 02/03/2021 12:00:00 AM EDT eCW1 ([facility]) Amphetamine aspartate 2.5 MG / Amphetami ne Sulfate 2.5 MG / Dextroamphetamine saccharate 2.5 MG / Dextroamphetamine Sulfate 2.5 MG Oral Tablet [Adderall] 02/03/2021 12:00:00 AM EDT eCW1 ([facility]) Fluconazole 150 MG Oral Tablet 01/19/2021 12:00:00 AM EDT eCW1 ([facility]) Amoxicillin 875 MG / Clavulanate 125 MG Oral Tablet 01/20/20 12:00:00 AM EDT eCW1 ([facility]) Fluconazole 150 MG Oral Tablet 01/19/2021 12:00:00 AM EDT eCW1 ([facility]) Amoxicillin 875 MG / Clavulanate 125 MG Oral Tablet 01/20/20 12:00:00 AM EDT eCW1 ([facility]) Fluconazole 150 MG Oral Tablet 01/19/2021 12:00:00 AM EDT eCW1 ([facility]) Amoxicillin 875 MG / Clavulanate 125 MG Oral Tablet 01/20/20 12:00:00 AM EDT eCW1 ([facility]) Fluconazole 150 MG Oral Tablet 01/19/2021 12:00:00 AM EDT eCW1 ([facility]) Amoxicillin 875 MG / Clavulanate 125 MG Oral Tablet 01/20/20 12:00:00 AM EDT eCW1 ([facility]) Fluconazole 150 MG Oral Tablet 01/19/2021 12:00:00 AM EDT eCW1 ([facility]) Amoxicillin 875 MG / Clavulanate 125 MG Oral Tablet 01/20/20 12:00:00 AM EDT eCW1 ([facility]) Fluconazole 150 MG Oral Tablet 01/19/2021 12:00:00 AM EDT eCW1 ([facility]) Amoxicillin 875 MG / Clavulanate 125 MG Oral Tablet 01/20/20 12:00:00 AM EDT eCW1 ([facility]) Fluconazole 150 MG Oral Tablet 01/19/2021 12:00:00 AM EDT eCW1 ([facility]) Amoxicillin 875 MG / Clavulanate 125 MG Oral Tablet 01/20/20 12:00:00 AM EDT eCW1 ([facility]) Fluconazole 150 MG Oral Tablet 01/19/2021 12:00:00 AM EDT eCW1 ([facility]) Amoxicillin 875 MG / Clavulanate 125 MG Oral Tablet 01/20/20 12:00:00 AM EDT eCW1 ([facility]) Fluconazole 150 MG Oral Tablet 01/19/2021 12:00:00 AM EDT eCW1 ([facility]) Amoxicillin 875 MG / Clavulanate 125 MG Oral Tablet 01/20/20 12:00:00 AM EDT eCW1 ([facility]) Fluconazole 150 MG Oral Tablet 01/19/2021 12:00:00 AM EDT eCW1 ([facility]) Amoxicillin 875 MG / Clavulanate 125 MG Oral Tablet 01/20/20 12:00:00 AM EDT eCW1 ([facility]) Vitamin D3 50 MCG (1999) 01/02/2021 12:00:00 AM EDT eCW1 ([facility]) Amphetamine aspartate 2.5 MG / Amphetami ne Sulfate 2.5 MG / Dextroamphetamine saccharate 2.5 MG / Dextroamphetamine Sulfate 2.5 MG Oral Tablet [Adderall] 12/30/2020 12:00:00 AM EDT eCW1 ([facility]) Amphetamine aspartate 2.5 MG / Amphetami ne Sulfate 2.5 MG / Dextroamphetamine saccharate 2.5 MG / Dextroamphetamine Sulfate 2.5 MG Oral Tablet [Adderall] 12/30/2020 12:00:00 AM EDT eCW1 ([facility]) Amphetamine aspartate 2.5 MG / Amphetami ne Sulfate 2.5 MG / Dextroamphetamine saccharate 2.5 MG / Dextroamphetamine Sulfate 2.5 MG Oral Tablet [Adderall] 11/28/2020 12:00:00 AM EDT eCW1 ([facility]) Famotidine 20 MG Oral Tablet 11/26/2020 12:00:00 AM EDT eCW1 ([facility]) Famotidine 20 MG Oral Tablet 11/26/2020 12:00:00 AM EDT eCW1 ([facility]) Amphetamine aspartate 2.5 MG / Amphetami ne Sulfate 2.5 MG / Dextroamphetamine saccharate 2.5 MG / Dextroamphetamine Sulfate 2.5 MG Oral Tablet [Adderall] 10/24/2020 12:00:00 AM EDT eCW1 ([facility]) Amphetamine aspartate 2.5 MG / Amphetami ne Sulfate 2.5 MG / Dextroamphetamine saccharate 2.5 MG / Dextroamphetamine Sulfate 2.5 MG Oral Tablet [Adderall] 09/23/2020 12:00:00 AM EST eCW1 ([facility]) Amphetamine aspartate 2.5 MG / Amphetami ne Sulfate 2.5 MG / Dextroamphetamine saccharate 2.5 MG / Dextroamphetamine Sulfate 2.5 MG Oral Tablet [Adderall] 09/23/2020 12:00:00 AM EST eCW1 ([facility]) Amphetamine aspartate 2.5 MG / Amphetami ne Sulfate 2.5 MG / Dextroamphetamine saccharate 2.5 MG / Dextroamphetamine Sulfate 2.5 MG Oral Tablet [Adderall] 08/28/2020 12:00:00 AM EST eCW1 ([facility]) Amphetamine aspartate 2.5 MG / Amphetami ne Sulfate 2.5 MG / Dextroamphetamine saccharate 2.5 MG / Dextroamphetamine Sulfate 2.5 MG Oral Tablet [Adderall] 07/29/2020 12:00:00 AM EST eCW1 ([facility]) Amphetamine aspartate 2.5 MG / Amphetami ne Sulfate 2.5 MG / Dextroamphetamine saccharate 2.5 MG / Dextroamphetamine Sulfate 2.5 MG Oral Tablet [Adderall] 06/23/2020 12:00:00 AM EST eCW1 ([facility]) Amphetamine aspartate 2.5 MG / Amphetami ne Sulfate 2.5 MG / Dextroamphetamine saccharate 2.5 MG / Dextroamphetamine Sulfate 2.5 MG Oral Tablet [Adderall] 05/21/2020 12:00:00 AM EDT eCW1 ([facility]) Amphetamine aspartate 2.5 MG / Amphetami ne Sulfate 2.5 MG / Dextroamphetamine saccharate 2.5 MG / Dextroamphetamine Sulfate 2.5 MG Oral Tablet [Adderall] 05/21/2020 12:00:00 AM EDT eCW1 ([facility]) Amphetamine aspartate 2.5 MG / Amphetami ne Sulfate 2.5 MG / Dextroamphetamine saccharate 2.5 MG / Dextroamphetamine Sulfate 2.5 MG Oral Tablet [Adderall] 05/21/2020 12:00:00 AM EDT eCW1 ([facility]) Amphetamine aspartate 2.5 MG / Amphetami ne Sulfate 2.5 MG / Dextroamphetamine saccharate 2.5 MG / Dextroamphetamine Sulfate 2.5 MG Oral Tablet [Adderall] 05/21/2020 12:00:00 AM EDT eCW1 ([facility]) Amphetamine aspartate 2.5 MG / Amphetami ne Sulfate 2.5 MG / Dextroamphetamine saccharate 2.5 MG / Dextroamphetamine Sulfate 2.5 MG Oral Tablet [Adderall] 05/21/2020 12:00:00 AM EDT eCW1 ([facility])
[2021-06-03] MEDS ORDERED: ALBUTEROL SULFATE 2.5 MG/0.5 ML INH NEB SOLN INH ONE (07:00)
[2021-06-03] MEDS ORDERED: LIDOCAINE 4% INJ 5ML AMP INH ONE (07:00)
[2021-06-03] MEDS ORDERED: LIDOCAINE 2% 100MG/5ML SDV (FOR ANES.) As Ordered ONE (07:21)
[2021-06-03] MEDS ORDERED: ROCURONIUM BROMIDE 50 MG/5 ML VIAL As Ordered ONE (07:21)
[2021-06-03] MEDS ORDERED: dexameTHASONE 4 MG/ML 1ML VIAL (J1100 PER 1MG) As Ordered ONE (07:22)
[2021-06-03] MEDS ORDERED: MIDAZOLAM INJ 2MG/2ML VIAL (J2250 PER 1MG) As Ordered ONE (07:22)
[2021-06-03] MEDS ORDERED: propofoL 200 MG/20 ML VIAL As Ordered ONE ×2 (07:22→08:08)
[2021-06-03] MEDS ORDERED: fentaNYL 100 MCG/2 ML INJECTION (J3010) As Ordered ONE ×2 (07:23→07:24)
[2021-06-03] MEDS ORDERED: THROMBIN SOLN 5,000 UNITS VIAL As Ordered ONE (08:04)
[2021-06-03] MEDS ORDERED: EPINEPHrine 1MG/10ML SYRINGE 1.5IN As Ordered ONE (08:04)
[2021-06-03] MEDS ORDERED: CETACAINE SPRAY 5GM As Ordered ONE (08:04)
[2021-06-03] MEDS ORDERED: SUGAMMADEX SODIUM 500 MG/5 ML VIAL (BRIDION) As Ordered ONE (08:09)
[2021-06-03] MEDS ORDERED: ONDANSETRON 4MG/2ML VIAL As Ordered ONE (08:09)
[2021-06-03] MEDS ORDERED: METOCLOPRAMIDE INJ 10MG/2ML VIAL (J2765 PER 1) As Ordered ONE (08:19)
[2021-06-03] MEDS ORDERED: LACRILUBE (AKWA TEARS) OPHTH OINT 3.5 GM As Ordered ONE (08:21)
[2021-06-03] MEDS ORDERED: fentaNYL 100 MCG/2 ML INJECTION (J3010) IV PRN (08:35)
[2021-06-03] MEDS ORDERED: ONDANSETRON 4MG/2ML VIAL IV PRN (08:35)
[2021-06-03] MEDS ORDERED: HYDROMORPHONE HCL 0.5 MG/ 0.5 ML SYRINGE (J1170 PER 1) IV PRN (08:35)
[2021-06-03] MEDS ORDERED: oxyCODONE 5MG TAB PO PRN (08:35)
[2021-06-03] MEDS ORDERED: LR 1,000 ML IV SCH (08:35)
--- NOTE | 2021-06-03 09:02 | RO ---
OPERATIVE NOTE DATE OF OPERATION: 06/03/2021 PREOPERATIVE DIAGNOSIS: Left upper lobe nodule. POSTOPERATIVE DIAGNOSIS: Left upper lobe nodule with mild chronic bronchitis. PROCEDURE: Fiberoptic bronchoscopy with [place] robotic platform as well as radial ultrasound fluoroscopy and transbronchial biopsies. SURGEON: GILBERT ENRIQUEZ M.D. ORDER DISPATCHER: ONEIDA FREEMAN MD ANESTHESIA: General. OPERATIVE FINDINGS: 1. Diffuse changes of mild bronchitis with black stained secretions. 2. Left upper lobe nodule. DESCRIPTION OF PROCEDURE: After the patient was identified and the above anesthesia given, the fiberoptic bronchoscope was passed via the existing endotracheal tube. It was found to be close to the terrance, was repositioned and then re-anchored. In a sequential fashion, left and right lung were entered. Minimal diffuse secretions were noted with some mild black staining consistent with her inhalational habits. Left upper and lower lobes easily identified, widely patent. Right upper, middle and lower lobes easily identified, generally widely patent and no focal endobronchial mucosa abnormalities were identified. The regular bronchoscope was withdrawn and then the [place] portion of the procedure was undertaken. The scope was able to be driven into the left upper lobe. Good position to the target was able to be obtained. Radial ultrasound probe was then passed. An area of interest was found. This was then marked on the fluoroscopic screen. Multiple transbronchial biopsies were then undertaken. Good cellular material was obtained, mainly inflammatory. When adequate tissue was able to be obtained, that portion of the procedure was terminated. Topical thrombin was then applied. The [place] portion of the procedure was then terminated. Immediate fluoroscopic examination showed no evidence of pneumothorax. Care was then turned over to anesthesia for recovery. Chest x-ray is ordered for one hour post-procedure. No immediate complications to procedure were identified.
--- NOTE | 2021-06-03 09:47 | REP ---
INDICATION: s/p bronch with BERRY bxs.. COMPARISON: CT chest 05/14/2021 TECHNIQUE: AP portable seated lordotic chest FINDINGS: Lungs are well inflated. CP angles are sharply defined without effusion. There is no pneumothorax on that left side. I cannot clearly define the ground-glass density seen on CT as the radiographic finding. There is no dense consolidation or parenchymal mass/nodule visible. Cardiomediastinal silhouette and airway grossly intact. Aorta unremarkable. Airway midline. Bones without acute finding. No free air under the diaphragm. IMPRESSION: 1. No evidence of left-sided pneumothorax or acute airspace abnormality. No left effusion. <Electronically signed by Ted Millan > 06/03/21 [id number]
[2021-06-03 10:05] VITALS: BP 100/60
--- NOTE | 2021-06-03 22:13 | ECGEPIP ---
[facility] Test Date: 2021-06-03 Pat Name: LIZZETH LEE Department: Room: - Gender: Female Sole Cutter: ROSA : 1965 Requested By: GIOVANNA Stein Order Number: [id number] Reading MD: Rosario Lima Measurements Intervals [place] Rate: 54 P: 66 WI: 174 QRS: 35 QRSD: 80 T: 41 QT: 470 QTc: 445 Interpretive Statements Sinus bradycardia Possible Anterior infarct , age undetermined Minimal change since 11/15/2014 Electronically Signed on 06-03-2021 22:13:33 EDT by Rosario Lima
== END 2021-06-03 10:15 | disposition home or self-care (01) ==
LOC: M SDC 06:26
PROVIDERS: ATTEND Internal Medicine Pulmonary Disease
DX: R91.1 Solitary pulmonary nodule (principal); J44.9 Chronic obstructive pulmonary disease, unspecified; F17.218 Nicotine dependence, cigarettes, with other nicotine-induced disorders; F12.10 Cannabis abuse, uncomplicated; F32.9 Major depressive disorder, single episode, unspecified; F41.9 Anxiety disorder, unspecified; E03.9 Hypothyroidism, unspecified; K21.9 Gastro-esophageal reflux disease without esophagitis; Z79.899 Other long term (current) drug therapy
CPT/HCPCS: 31627; 31628; 71045; 76000; 88305; 93005; J1100; J2250; J2405; J2765; J3010; S2900

== ENCOUNTER → 2021-07-13 | Outpatient (REF) | payer OTHER ==
[~2021-07-13] MED LIST changes: -LR 1,000 ML IV ONE
[2021-07-13 16:24] LABS: APPEARANCE, URINE CLOUDY (CLEAR); BACTERIA, URINE AUTO 1+ (NEGATIVE); BILIRUBIN, URINE AUTO NEGATIVE (NEGATIVE); BLOOD, URINE BLOOD 3+ (NEGATIVE); COLOR, URINE YELLOW (YELLOW); GLUCOSE, URINE (UA) AUTO NEGATIVE (NEGATIVE); KETONE, URINE AUTO NEGATIVE (NEGATIVE); LEUKOCYTE ESTERASE, URINE AUTO NEGATIVE (NEGATIVE); MUCUS, URINE SMALL (NEGATIVE); NITRITE, URINE AUTO NEGATIVE (NEGATIVE); PROTEIN, URINE AUTO 1+ mg/dL (NEGATIVE); RBC, URINE AUTO TNTC /HPF (0-3); SPECIFIC GRAVITY URINE AUTO 1.021 (1.002-1.035); SQUAMOUS EPITHELIAL CELL UR AU 8 /HPF (0-6); UROBILINOGEN, URINE AUTO 0.2 mg/dL (0.0-2.0); WBC, URINE AUTO 10 /HPF (0-3)
== END ==
LOC: M SFHCCAPE 13:41
PROVIDERS: ATTEND Physician Assistant
DX: R82.998 Other abnormal findings in urine (principal)

== ENCOUNTER → 2021-07-20 | Outpatient (CLI) | payer OTHER ==
--- NOTE | 2021-07-21 12:01 | REP ---
INDICATION: DIAGNOSING LUNG NODULE R91.1. COMPARISON: There are no prior PET CTs for comparison. Previous CT abdomen and pelvis dated 07/14/2021 from an outside institution was reviewed. Prior chest CT 05/04/2021 a noncontrast enhanced diagnostic chest CT was also reviewed. TECHNIQUE: After the intravenous administration of 8.90 mCi of FDG 18 triplane whole-body PET-CT was performed from the skull base to the mid thigh. NONCONTRAST HELICAL CT IMAGING WAS PERFORMED OVER THE SAME RANGE WITHOUT BREATH HOLD FOR ATTENUATION CORRECTION OF PET IMAGES AND ANATOMIC CORRELATION, BUT NOT FOR PRIMARY INTERPRETATION IT IS NOT OF STANDARD DIAGNOSTIC QUALITY. FINDINGS: There is no abnormal hypermetabolic activity seen in the neck, chest, abdomen, or pelvis. The ground-glass opacity seen on the chest CT of 05/04/2021 in the left lung apical region is not hypermetabolic. There is a small focus of hypermetabolism seen in the origin of the right hamstring muscle. IMPRESSION: 1. The ground-glass opacity seen on the prior CT of 05/04/2021 is not hypermetabolic. I cannot compare that lesion seen on the nondiagnostic CT obtained today, as detailed above, to the chest CT of 05/04/2021. If lesional differences in morphology or size are clinically desired then a repeat diagnostic CT of the chest is recommended so a responsible comparison can be made. 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 Continued surveillance is recommended. 2. The hypermetabolism seen in the right hamstring tendon this likely secondary to mild tendinitis. This should be correlated clinically. <Electronically signed by Florentino Ruiz > 07/21/21 [id number]
== END ==
LOC: M PLARAD 09:25
PROVIDERS: ATTEND Thoracic Surgery (Cardiothoracic Vascular Surgery)
DX: R91.1 Solitary pulmonary nodule (principal)
CPT/HCPCS: 78815; A9552

== ENCOUNTER → 2021-09-14 | Outpatient (REF) | payer OTHER ==
[2021-09-14 17:36] LABS: APPEARANCE, URINE CLEAR (CLEAR); BACTERIA, URINE AUTO NEGATIVE (NEGATIVE); BILIRUBIN, URINE AUTO NEGATIVE (NEGATIVE); BLOOD, URINE BLOOD NEGATIVE (NEGATIVE); COLOR, URINE YELLOW (YELLOW); GLUCOSE, URINE (UA) AUTO NEGATIVE (NEGATIVE); KETONE, URINE AUTO NEGATIVE (NEGATIVE); LEUKOCYTE ESTERASE, URINE AUTO TRACE (NEGATIVE); MUCUS, URINE SMALL (NEGATIVE); NITRITE, URINE AUTO NEGATIVE (NEGATIVE); PROTEIN, URINE AUTO NEGATIVE (NEGATIVE); RBC, URINE AUTO 3 /HPF (0-3); SPECIFIC GRAVITY URINE AUTO 1.024 (1.002-1.035); SQUAMOUS EPITHELIAL CELL UR AU 5 /HPF (0-6); UROBILINOGEN, URINE AUTO 0.2 mg/dL (0.0-2.0); WBC, URINE AUTO 8 /HPF (0-3)
== END ==
LOC: M SMT 16:37
PROVIDERS: ATTEND Physician Assistant
DX: R31.0 Gross hematuria (principal)

== ENCOUNTER → 2021-10-07 | Outpatient (CLI) | payer OTHER ==
[~2021-10-07] MED LIST changes: +ISOVUE-370 76% 100ML VIAL As Ordered ONE
== END ==
LOC: M RAD 13:48
PROVIDERS: ATTEND Surgery
DX: R91.1 Solitary pulmonary nodule (principal)
CPT/HCPCS: 71260; Q9967

== ENCOUNTER → 2021-10-16 | Outpatient (REF) | payer OTHER ==
[~2021-10-16] MED LIST changes: -ISOVUE-370 76% 100ML VIAL As Ordered ONE
== END ==
LOC: M SMT 16:40
PROVIDERS: ATTEND Urology
DX: R31.0 Gross hematuria (principal)

== ENCOUNTER → 2021-12-10 | Outpatient (REF) | payer OTHER ==
[~2021-12-10] MED LIST changes: -LEVO125T4; +LEVO125T4 PO; -MELO15TA28; +MELO15TA28 PO; +OMEP-173 PO; +SYMB16INH INH; +VENTAER INH; +WELLTAB38 PO
== END ==
LOC: M SFHCCAPE 13:30
PROVIDERS: ATTEND Physician Assistant
DX: N94.9 Unspecified condition associated with female genital organs and menstrual cycle (principal)

== ENCOUNTER 2021-12-15 10:05 | Day surgery (SDC) | payer OTHER ==
[~2021-12-15] VITALS: Ht 162.6 cm; Wt 73.0 kg
[~2021-12-15 10:05] MED LIST changes: +NS 1,000 ML IV ONE; -OMEP-173 PO; -WELLTAB38 PO
[2021-12-15] MEDS ORDERED: LIDOCAINE 2% 100MG/5ML SDV (FOR ANES.) As Ordered ONE (10:43)
[2021-12-15] MEDS ORDERED: propofoL 200 MG/20 ML VIAL As Ordered ONE ×2 (10:43→12:31)
[2021-12-15] MEDS ORDERED: OMEP-173 PO (11:12)
[2021-12-15] MEDS ORDERED: WELLTAB38 PO (11:12)
[2021-12-15] MEDS ORDERED: fentaNYL 100 MCG/2 ML INJECTION As Ordered ONE (12:15)
[2021-12-15 12:59] VITALS: BP 144/66
== END 2021-12-15 13:13 | disposition home or self-care (01) ==
LOC: M OPP 10:05
PROVIDERS: ATTEND Internal Medicine Gastroenterology
DX: Z12.11 Encounter for screening for malignant neoplasm of colon (principal); Z86.010 Personal history of colon polyps; Z85.048 Personal history of other malignant neoplasm of rectum, rectosigmoid junction, and anus; Z85.118 Personal history of other malignant neoplasm of bronchus and lung; Z98.890 Other specified postprocedural states; D12.3 Benign neoplasm of transverse colon; D12.5 Benign neoplasm of sigmoid colon; K57.30 Diverticulosis of large intestine without perforation or abscess without bleeding; K64.8 Other hemorrhoids; Z79.899 Other long term (current) drug therapy; Z87.891 Personal history of nicotine dependence
CPT/HCPCS: 45380; 45385; 88305; J3010

== ENCOUNTER → 2022-02-03 | Outpatient (REF) | payer OTHER ==
[~2022-02-03] MED LIST changes: -NS 1,000 ML IV ONE; +OMEP-173 PO; +WELLTAB38 PO
[2022-02-03 16:48] LABS: BASO # 0.1 10^3/uL (0.0-0.2); EOS # 0.2 10^3/uL (0.0-0.5); EOS % 2.9 % (0.0-3.0); HEMATOCRIT 43.2 % (36.0-47.0); HEMOGLOBIN 14.1 g/dl (12.0-15.5); LYMPH # 3.1 10^3/uL (1.5-5.0); LYMPH % 37.3 % (24.0-44.0); MEAN CORPUSCULAR HEMOGLOBIN 33.9 pg (27.0-33.0); MEAN CORPUSCULAR HGB CONC 32.6 g/dl (32.0-36.5); MEAN CORPUSCULAR VOLUME 103.8 fl (80.0-96.0); MONO # 0.5 10^3/uL (0.0-0.8); MONO % 5.6 % (2.0-8.0); NEUTROPHILS # 4.4 10^3/uL (1.5-8.5); NEUTROPHILS % 52.8 % (36.0-66.0); PLATELET COUNT, AUTOMATED 424 10^3/uL (150-450); RED BLOOD COUNT 4.16 10^6/uL (4.00-5.40); WHITE BLOOD COUNT 8.3 10^3/uL (4.0-10.0)
[2022-02-03 16:55] LABS: CHOLESTEROL RISK RATIO 3.695 (<5); FREE T4 0.89 NG/DL (0.76-1.46); THYROID STIMULATING HORMONE 4.46 uIU/ML (0.358-3.740)
[2022-02-03 17:09] LABS: FOLATE 11.6 NG/ML
== END ==
LOC: M SFHCCAPE 11:28
PROVIDERS: ATTEND Physician Assistant
DX: D75.89 Other specified diseases of blood and blood-forming organs (principal); F32.1 Major depressive disorder, single episode, moderate

== ENCOUNTER → 2022-03-25 | Outpatient (REF) | payer OTHER ==
[2022-03-25 17:33] LABS: BASO # 0.1 10^3/uL (0.0-0.2); BASO % 0.9 % (0.0-1.0); EOS # 0.4 10^3/uL (0.0-0.5); HEMATOCRIT 43.5 % (36.0-47.0); HEMOGLOBIN 14.3 g/dl (12.0-15.5); LYMPH # 2.9 10^3/uL (1.5-5.0); LYMPH % 32.5 % (24.0-44.0); MEAN CORPUSCULAR HEMOGLOBIN 34.1 pg (27.0-33.0); MEAN CORPUSCULAR HGB CONC 32.9 g/dl (32.0-36.5); MEAN CORPUSCULAR VOLUME 103.8 fl (80.0-96.0); MONO # 0.7 10^3/uL (0.0-0.8); MONO % 7.5 % (2.0-8.0); NEUTROPHILS # 4.8 10^3/uL (1.5-8.5); NEUTROPHILS % 54.8 % (36.0-66.0); PLATELET COUNT, AUTOMATED 384 10^3/uL (150-450); RED BLOOD COUNT 4.19 10^6/uL (4.00-5.40); WHITE BLOOD COUNT 8.8 10^3/uL (4.0-10.0)
[2022-03-25 18:14] LABS: FREE T4 1.08 NG/DL (0.76-1.46); THYROID STIMULATING HORMONE 1.4 uIU/ML (0.358-3.740)
== END ==
LOC: M SFHCCAPE 09:50
PROVIDERS: ATTEND Physician Assistant
DX: D75.89 Other specified diseases of blood and blood-forming organs (principal); E03.9 Hypothyroidism, unspecified

== ENCOUNTER → 2022-05-07 | Outpatient (CLI) | payer OTHER ==
[~2022-05-07] MED LIST changes: +ISOVUE-370 76% 100ML VIAL As Ordered ONE
== END ==
LOC: M RAD 13:08
PROVIDERS: ATTEND Thoracic Surgery (Cardiothoracic Vascular Surgery)
DX: C34.91 Malignant neoplasm of unspecified part of right bronchus or lung (principal)
CPT/HCPCS: 71260; Q9967

== ENCOUNTER → 2022-11-03 | Outpatient (REF) | payer OTHER ==
[~2022-11-03] MED LIST changes: -ISOVUE-370 76% 100ML VIAL As Ordered ONE
[2022-11-03 19:07] LABS: BASO # 0.1 10^3/uL (0.0-0.2); EOS # 0.4 10^3/uL (0.0-0.5); EOS % 4.9 % (0.0-3.0); HEMATOCRIT 41.4 % (36.0-47.0); HEMOGLOBIN 13.6 g/dl (12.0-15.5); LYMPH # 3.7 10^3/uL (1.5-5.0); MEAN CORPUSCULAR HEMOGLOBIN 34.9 pg (27.0-33.0); MEAN CORPUSCULAR HGB CONC 32.9 g/dl (32.0-36.5); MEAN CORPUSCULAR VOLUME 106.2 fl (80.0-96.0); MONO # 0.5 10^3/uL (0.0-0.8); MONO % 5.8 % (2.0-8.0); NEUTROPHILS # 3.9 10^3/uL (1.5-8.5); PLATELET COUNT, AUTOMATED 423 10^3/uL (150-450); WHITE BLOOD COUNT 8.6 10^3/uL (4.0-10.0)
[2022-11-03 19:17] LABS: ERYTHROCYTE SEDIMENTATION RATE 13 mm/hr (0-30)
[2022-11-03 19:28] LABS: URIC ACID 4.8 MG/DL (3.1-7.8)
[2022-11-03 19:31] LABS: C REACTIVE PROTEIN QUANTITATIV < 0.40 MG/DL (<1.0)
[2022-11-03 19:32] LABS: ALKALINE PHOSPHATASE 66 U/L (46-116); ALT/SGPT 24 U/L (7.0-40); AST/SGOT 19 U/L (<34); BILIRUBIN,TOTAL 0.3 MG/DL (0.3-1.2); BLOOD UREA NITROGEN 15 MG/DL (9-23); CALCIUM LEVEL 9.1 MG/DL (8.5-10.1); CARBON DIOXIDE LEVEL 27 MMOL/L (20-31); CHLORIDE LEVEL 109 MMOL/L (98-107); CHOLESTEROL LEVEL 217 MG/DL (<200); CREATININE FOR GFR 0.68 MG/DL (0.55-1.30); FREE T4 1.48 NG/DL (0.89-1.76); GLOMERULAR FILTRATION RATE > 60.0 (>51); GLUCOSE, FASTING 98 MG/DL (60-100); LDL CHOLESTEROL 113.8 MG/DL (<100); POTASSIUM SERUM 4.2 MMOL/L (3.5-5.1); SODIUM LEVEL 142 MMOL/L (136-145); THYROID STIMULATING HORMONE 5.246 uIU/ML (0.55-4.78); TOTAL 25(OH) VITAMIN D 28.5 NG/ML (20.0-100.0); TOTAL PROTEIN 6.7 G/DL (5.7-8.2); TRIGLYCERIDES LEVEL 206 MG/DL (<150)
[2022-11-03 19:33] LABS: FOLATE 19.4 NG/ML (>5.4); RHEUMATOID FACTOR QUANT 4.4 IU/ML (<14); VITAMIN B12 LEVEL 318 PG/ML (211-911)
== END ==
LOC: M SFHCCAPE 08:03
PROVIDERS: ATTEND Physician Assistant
DX: M25.50 Pain in unspecified joint (principal); R76.8 Other specified abnormal immunological findings in serum; L40.9 Psoriasis, unspecified; R63.5 Abnormal weight gain

== ENCOUNTER → 2022-11-23 | Outpatient (CLI) | payer OTHER ==
[~2022-11-23] MED LIST changes: +ISOVUE-370 76% 100ML VIAL As Ordered ONE
== END ==
LOC: M RAD 11:16
PROVIDERS: ATTEND Thoracic Surgery (Cardiothoracic Vascular Surgery)
DX: Z85.118 Personal history of other malignant neoplasm of bronchus and lung (principal); J43.9 Emphysema, unspecified
CPT/HCPCS: 71260; Q9967

== ENCOUNTER → 2023-03-02 | Outpatient (REF) | payer OTHER ==
[~2023-03-02] MED LIST changes: -ISOVUE-370 76% 100ML VIAL As Ordered ONE
[2023-03-02 18:36] LABS: THYROID STIMULATING HORMONE 0.77 uIU/ML (0.55-4.78); TOTAL 25(OH) VITAMIN D 66.2 NG/ML (20.0-100.0)
[2023-03-02 18:37] LABS: FREE T4 1.7 NG/DL (0.89-1.76)
[2023-03-04 23:11] LABS: ANA (HEP2) Positive (.)
== END ==
LOC: M SFHCCAPE 09:52
PROVIDERS: ATTEND Physician Assistant
DX: M25.50 Pain in unspecified joint (principal); E55.9 Vitamin D deficiency, unspecified

== ENCOUNTER → 2023-03-08 | Outpatient (REF) | payer OTHER | LOC: M SFHCCAPE 11:46 | PROVIDERS: ATTEND Physician Assistant | DX: Z12.4 Encounter for screening for malignant neoplasm of cervix (principal) ==

== ENCOUNTER → 2023-08-23 | Outpatient (REF) | payer OTHER ==
[2023-08-23 19:21] LABS: BASO # 0.1 10^3/uL (0.0-0.2); BASO % 1.2 % (0.0-1.0); EOS # 0.2 10^3/uL (0.0-0.5); EOS % 2.6 % (0.0-3.0); HEMATOCRIT 39.2 % (36.0-47.0); HEMOGLOBIN 12.8 g/dl (12.0-15.5); LYMPH # 3.5 10^3/uL (1.5-5.0); MEAN CORPUSCULAR HEMOGLOBIN 34.4 pg (27.0-33.0); MEAN CORPUSCULAR HGB CONC 32.7 g/dl (32.0-36.5); MEAN CORPUSCULAR VOLUME 105.4 fl (80.0-96.0); MONO # 0.4 10^3/uL (0.0-0.8); MONO % 4.6 % (2.0-8.0); NEUTROPHILS % 53.3 % (36.0-66.0); PLATELET COUNT, AUTOMATED 413 10^3/uL (150-450); RED BLOOD COUNT 3.72 10^6/uL (4.00-5.40); WHITE BLOOD COUNT 9.3 10^3/uL (4.0-10.0)
[2023-08-23 19:26] LABS: ERYTHROCYTE SEDIMENTATION RATE 9 mm/hr (0-30)
[2023-08-23 19:45] LABS: URIC ACID 4.1 MG/DL (3.1-7.8)
[2023-08-23 19:46] LABS: C REACTIVE PROTEIN QUANTITATIV < 0.40 MG/DL (<1.0)
[2023-08-23 19:48] LABS: ALBUMIN 3.7 G/DL (3.2-5.2); ALKALINE PHOSPHATASE 67 U/L (46-116); ALT/SGPT 17 U/L (7.0-40); AST/SGOT 13 U/L (<34); BILIRUBIN,TOTAL 0.3 MG/DL (0.3-1.2); BLOOD UREA NITROGEN 19 MG/DL (9-23); CALCIUM LEVEL 9.3 MG/DL (8.3-10.6); CARBON DIOXIDE LEVEL 30 MMOL/L (20-31); CHLORIDE LEVEL 105 MMOL/L (98-107); CREATININE FOR GFR 0.66 MG/DL (0.55-1.30); GLOMERULAR FILTRATION RATE > 60.0 (>45); GLUCOSE, FASTING 106 MG/DL (74-106); POTASSIUM SERUM 4.1 MMOL/L (3.5-5.1); RHEUMATOID FACTOR QUANT < 3.5 IU/ML (<14); SODIUM LEVEL 138 MMOL/L (136-145); TOTAL PROTEIN 6.6 G/DL (5.7-8.2)
== END ==
LOC: M SFHCCAPE 13:12
PROVIDERS: ATTEND Physician Assistant Medical
DX: M25.50 Pain in unspecified joint (principal); R76.8 Other specified abnormal immunological findings in serum

== ENCOUNTER → 2023-09-29 | Outpatient (REF) | payer OTHER | LOC: M LAB REF 17:29 | PROVIDERS: ATTEND Surgery | DX: D17.0 Benign lipomatous neoplasm of skin and subcutaneous tissue of head, face and neck (principal) ==

== ENCOUNTER → 2024-05-04 | Outpatient (CLI) | payer MEDICAID, OTHER, SELFPAY ==
[~2024-05-04] MED LIST changes: +ISOVUE-370 76% 100ML VIAL As Ordered ONE
== END ==
LOC: M RAD 08:01
PROVIDERS: ATTEND Physician Assistant
DX: C34.12 Malignant neoplasm of upper lobe, left bronchus or lung (principal)
CPT/HCPCS: 71260; Q9967

== ENCOUNTER → 2024-09-13 | Outpatient (REF) | payer OTHER ==
[~2024-09-13] MED LIST changes: -ISOVUE-370 76% 100ML VIAL As Ordered ONE
[2024-09-13 19:10] LABS: BASO # 0.1 10^3/uL (0.0-0.2); BASO % 1.1 % (0.0-1.0); EOS # 0.6 10^3/uL (0.0-0.5); EOS % 7.5 % (0.0-3.0); HEMATOCRIT 35.5 % (36.0-47.0); HEMOGLOBIN 11.9 g/dl (12.0-15.5); LYMPH # 2.3 10^3/uL (1.5-5.0); LYMPH % 27.6 % (24.0-44.0); MEAN CORPUSCULAR HEMOGLOBIN 34.6 pg (27.0-33.0); MEAN CORPUSCULAR HGB CONC 33.5 g/dl (32.0-36.5); MEAN CORPUSCULAR VOLUME 103.2 fl (80.0-96.0); MONO # 0.6 10^3/uL (0.0-0.8); MONO % 7.1 % (2.0-8.0); NEUTROPHILS # 4.8 10^3/uL (1.5-8.5); NEUTROPHILS % 56.5 % (36.0-66.0); PLATELET COUNT, AUTOMATED 463 10^3/uL (150-450); RED BLOOD COUNT 3.44 10^6/uL (4.00-5.40); WHITE BLOOD COUNT 8.4 10^3/uL (4.0-10.0)
[2024-09-13 19:20] LABS: ALBUMIN 3.7 G/DL (3.2-5.2); ALKALINE PHOSPHATASE 68 U/L (35-104); ALT/SGPT 18 U/L (7.0-40); AST/SGOT 11 U/L (<34); BILIRUBIN,TOTAL 0.3 MG/DL (0.3-1.2); BLOOD UREA NITROGEN 16 MG/DL (9-23); CALCIUM LEVEL 9.3 MG/DL (8.3-10.6); CARBON DIOXIDE LEVEL 28 MMOL/L (20-31); CHLORIDE LEVEL 104 MMOL/L (98-107); CHOLESTEROL LEVEL 175 MG/DL (<200); CHOLESTEROL RISK RATIO 2.86 (<5); CREATININE FOR GFR 0.67 MG/DL (0.55-1.30); FOLATE 9.9 NG/ML (>5.4); FREE T4 1.73 NG/DL (0.89-1.76); GLOMERULAR FILTRATION RATE > 60.0 (>45); GLUCOSE, FASTING 97 MG/DL (74-106); LDL CHOLESTEROL 81.4 MG/DL (<100); POTASSIUM SERUM 3.9 MMOL/L (3.5-5.1); SODIUM LEVEL 142 MMOL/L (136-145); THYROID STIMULATING HORMONE 0.466 uIU/ML (0.55-4.78); TOTAL PROTEIN 6.6 G/DL (5.7-8.2); TRIGLYCERIDES LEVEL 163 MG/DL (<150); VITAMIN B12 LEVEL 300 PG/ML (211-911)
== END ==
LOC: M SFHCCAPE 10:23
PROVIDERS: ATTEND Physician Assistant Medical
DX: R21 Rash and other nonspecific skin eruption (principal); K21.00 Gastro-esophageal reflux disease with esophagitis, without bleeding; F32.1 Major depressive disorder, single episode, moderate; E78.2 Mixed hyperlipidemia; E03.9 Hypothyroidism, unspecified

== ENCOUNTER → 2025-02-05 | Outpatient (REF) | payer OTHER | LOC: M SFHCCAPE 16:54 | PROVIDERS: ATTEND Physician Assistant Medical | DX: F98.8 Other specified behavioral and emotional disorders with onset usually occurring in childhood and adolescence (principal) ==

== ENCOUNTER → 2025-02-13 | Outpatient (CLI) | payer OTHER | LOC: M RAD 13:17 | PROVIDERS: ATTEND Physician Assistant Medical | DX: M19.041 Primary osteoarthritis, right hand (principal); M19.042 Primary osteoarthritis, left hand; M85.821 Other specified disorders of bone density and structure, right upper arm; M85.822 Other specified disorders of bone density and structure, left upper arm; M79.641 Pain in right hand; M79.642 Pain in left hand ==

== ENCOUNTER → 2025-05-07 | Outpatient (CLI) | payer MEDICAID, OTHER ==
[~2025-05-07] MED LIST changes: +ISOVUE-370 76% 100 ML VIAL As Ordered ONE
[2025-05-07 15:10] LABS: CREATININE FOR GFR 0.75 MG/DL (0.55-1.30); GLOMERULAR FILTRATION RATE 90.0 (>45)
== END ==
LOC: M RAD 10:47
PROVIDERS: ATTEND Physician Assistant
DX: C34.12 Malignant neoplasm of upper lobe, left bronchus or lung (principal); R91.1 Solitary pulmonary nodule
CPT/HCPCS: 36415; 71260; 82565; 84520; Q9967

== ENCOUNTER → 2025-06-06 | Outpatient (REF) | payer OTHER ==
[~2025-06-06] MED LIST changes: -ISOVUE-370 76% 100 ML VIAL As Ordered ONE
[2025-06-06 18:09] LABS: BASO # 0.1 10^3/uL (0.0-0.2); BASO % 1.3 % (0.0-1.0); EOS # 0.4 10^3/uL (0.0-0.5); EOS % 4.9 % (0.0-3.0); LYMPH # 3.7 10^3/uL (1.5-5.0); LYMPH % 40.7 % (24.0-44.0); MONO # 0.5 10^3/uL (0.0-0.8); MONO % 5.8 % (2.0-8.0); NEUTROPHILS # 4.2 10^3/uL (1.5-8.5); NEUTROPHILS % 47.0 % (36.0-66.0); PLATELET COUNT, AUTOMATED 471 10^3/uL (150-450)
[2025-06-06 18:19] LABS: ALT/SGPT 17 U/L (7.0-40); AST/SGOT 17 U/L (<34); CALCIUM LEVEL 9.7 MG/DL (8.3-10.6); CARBON DIOXIDE LEVEL 30 MMOL/L (20-31); CHLORIDE LEVEL 106 MMOL/L (98-107); CREATININE FOR GFR 0.65 MG/DL (0.55-1.30); GLOMERULAR FILTRATION RATE > 90.0 (>45); POTASSIUM SERUM 4.4 MMOL/L (3.5-5.1); SODIUM LEVEL 143 MMOL/L (136-145)
[2025-06-06 18:20] LABS: FREE T4 1.72 NG/DL (0.89-1.76)
== END ==
LOC: M SFHCCAPE 13:42
PROVIDERS: ATTEND Physician Assistant Medical
DX: E03.9 Hypothyroidism, unspecified (principal); K21.00 Gastro-esophageal reflux disease with esophagitis, without bleeding

== ENCOUNTER → 2025-07-17 | Outpatient (CLI) | payer OTHER | LOC: M RAD 12:35 | PROVIDERS: ATTEND Physician Assistant Medical | DX: M25.571 Pain in right ankle and joints of right foot (principal); M25.511 Pain in right shoulder; M54.2 Cervicalgia; S82.841D Displaced bimalleolar fracture of right lower leg, subsequent encounter for closed fracture with routine healing; M50.321 Other cervical disc degeneration at C4-C5 level; M50.322 Other cervical disc degeneration at C5-C6 level; M50.323 Other cervical disc degeneration at C6-C7 level ==